=== PATIENT | female | born 1975 | race Hispanic/Latino ===

== ENCOUNTER 2020-10-15 16:53 | Emergency (ER) | payer OTHER, SELFPAY ==
--- NOTE | ~2020-10-15 | XR_ITS ---
EXAMINATION: XR chest 2V 10/15/2020 18:01 INDICATION: Cough PROCEDURE: 2 view chest COMPARISON: 04/11/2019 FINDINGS: The lungs are clear. The cardiomediastinal silhouette is within normal limits. There are no pleural effusions. There is no pneumothorax suspected. IMPRESSION: 1: NO ACUTE CARDIOPULMONARY DISEASE. Reviewed, dictated and finalized at location A. [employer]
--- NOTE | 2020-10-15 17:15 | ED.GENADULT ---
HPI - General Adult General Chief complaint: Upper Respiratory Infection Stated complaint: Cold Time Seen by Provider: 10/15/20 17:15 Source: patient, family (spouse, patient request for him to translate) and RN notes reviewed Mode of arrival: ambulatory Limitations: no limitations History of Present Illness HPI narrative: 44-year-old female presents with spouse (Dariusz), both complains of upper respiratory infection symptoms, fever, sore throat, cough, intermittent dyspnea and headaches (not the worst of her life) for 1 day. Hannah's spouse reports Hannah had trouble catching her breath while trying to sleep last night, URI symptoms continue to increase throughout the day. Tylenol, NyQuil, hot tea, Benadryl, humidifier without relief. Reported sick exposure from live in family member, NEGATIVE COVID-19 today. Dry cough with intermittent productive green phlegm. No chest congestion. Rhinorrhea and nasal congestion. Exacerbating factors consist of laying down. Fever, highest 100.1 Fahrenheit, temporal without chills and sweats. No nausea, vomiting, and abdominal pain. Tolerating p.o. intake well. Denies chest pain, coughing up blood, jaw pain, dental pain, facial pain, foreign body sensation, and rash. LMP 09/30/20. Remains active. The spouse reports they have not been diagnosed with COVID-19. The spouse reports they is not waiting for the results of a COVID-19 lab test. The spouse reports they do not have weakness, myalgia, or fatigue. The spouse reports they do not have a worsening cough. Denies chest pain. The spouse reports they do not have any loss of smell or taste or diarrhea. Denies recent traveling. Denies concerns for COVID-19 or exposures been home with limited outdoor exposure except for essential household needs, work, and return home. At this time, patient is not suspected of having COVID-19. Some parts of this dictation were generated by voice recognition software and may contain typographical and/or grammatical inaccuracies. Related Data Home Medications Medication Instructions Recorded Confirmed nortriptyline 10/15/20 Allergies Allergy/AdvReac Type Severity Reaction Status Date / Time No Known Allergies Allergy Unknown Unknown Verified 04/11/19 12:29 Review of Systems Review of Systems: Narrative: CONSTITUTIONAL: Complains of low-grade fever. Denies chills, sweats. EYES: Denies visual changes, redness, discharge. ENT: Complains of rhinorrhea, congestion, sore throat. Denies otalgia. CARDIOVASCULAR: Denies chest pain, palpitations, edema. RESPIRATORY: Denies wheezing. Complains of intermittent dyspnea, cough with intermittent productive green phlegm. GASTROINTESTINAL: Denies abdominal pain, nausea, vomiting, diarrhea. GENITOURINARY: Denies dysuria, hematuria, abnormal discharge. SKIN: Denies rash or itching. MUSCULOSKELETAL: Denies acute back pain, joint pain, myalgia. NEUROLOGIC: Denies numbness or focal weakness. PSYCHIATRIC: Denies anxiety or depression. Complains of intermittent BENNETT. All systems reviewed & are unremarkable except as noted in HPI and below. [facility] Past Medical History Medical History (Updated 10/15/20 @ 19:34 by LEIDY Chavez) Depression Surgical History Surgical History (Updated 10/15/20 @ 18:01 by LEIDY Chavez) No significant past surgical history Family History Family History (Updated 10/15/20 @ 18:02 by LEIDY Chavez) Father Alive and well Mother Diabetes mellitus Social History Social History (Updated 10/15/20 @ 18:02 by LEIDY Chavez) Smoking status: Never smoker Tobacco type: cigarettes Second hand tobacco smoke exposure: No Alcohol intake: never Substance use: never Substance use type: does not use Living arrangements: with family Occupation/Education: occupation Gender identity (if verbalized by the patient): Female Sexual Orientation (if Verbalized by the Patient): Straight or Heter
[2020-10-15 17:20] VITALS: BP 132/91; PULSE 112; RESP 18; TEMP 37.7; O2SAT 100
== END 2020-10-15 18:23 | disposition home or self-care (01) ==
PROVIDERS: Emergency Provider Nurse Practitioner Family; PCP Registered Nurse
DX: J06.9 Acute upper respiratory infection, unspecified (principal); J40 Bronchitis, not specified as acute or chronic; Z20.822 Contact with and (suspected) exposure to COVID-19; F32.9 Major depressive disorder, single episode, unspecified
CPT/HCPCS: 71046; 87081; 87426; 87804; 87880; 99213; C9803; G0463

== ENCOUNTER 2022-04-26 15:20 | Emergency (ER) | payer OTHER, SELFPAY ==
[2022-04-26 15:25] VITALS: BP 130/87; PULSE 82; RESP 16; TEMP 36.9; O2SAT 100
--- NOTE | 2022-04-26 15:50 | ED.URI ---
HPI - URI/Sore Throat General Chief Complaint: Upper Respiratory Infection Stated Complaint: sore throat Time Seen by Provider: 04/26/22 15:51 History of Present Illness HPI Narrative: 46 y/o female presented for c/o sore throat for about 5 days. Denies associated sinus pressure or congestion, headache, fever, or nausea. Endorses pain is worse when sleeping, feels like throat is closing. Also pain with swallowing food, states it feels like 'balls.' Started Zyrtec 2 days ago. States one year ago she had similar symptoms and was given inhaler which helped. Related Data Home Medications Medication Instructions Recorded Confirmed cetirizine 10 mg tablet 10 mg PO DAILY 04/26/22 04/26/22 nortriptyline 10 mg capsule 10 mg PO DAILY 04/26/22 04/26/22 Allergies Allergy/AdvReac Type Severity Reaction Status Date / Time No Known Allergies Allergy Unknown Unknown Verified 04/26/22 15:23 Review of Systems Review of Systems: CONSTITUTIONAL: Denies body aches, fever, chills, or sweats. EYES: Denies visual changes, redness, or discharge. ENT: Denies rhinorrhea, congestion, or otalgia. CARDIOVASCULAR: Denies chest pain, palpitations, or edema. RESPIRATORY: Denies dyspnea. GASTROINTESTINAL: Denies abdominal pain, nausea, vomiting, or diarrhea. SKIN: Denies rash, itching, or wounds. MUSCULOSKELETAL: Denies back pain, joint pain, or myalgia. NEUROLOGIC: Denies headache PMFSH Past Medical History Medical History Depression Surgical History Surgical History No significant past surgical history Family History Family History Father Alive and well Mother Diabetes mellitus Social History Social History Smoking status: Never smoker Tobacco type: cigarettes Second hand tobacco smoke exposure: No Alcohol intake: never Substance use: never Substance use type: does not use Gender identity (if verbalized by the patient): Female Sexual Orientation (if Verbalized by the Patient): Straight or Heterosexual Exam Narrative: GENERAL: well-appearing EYES: conjunctivae clear ENT: Mucous membranes moist. TM pearly cobian with normal light reflex bilaterally; no tragal tenderness. Oropharynx erythematous without lesions. No drooling, no hoarseness, no trismus, uvula midline. No tripod positioning, hot potato voice, or soft palate swelling. NECK: Supple. No lymphadenopathy CHEST: Clear to auscultation, breath sounds equal. ABD: mild epigastric TTP, soft, flat BS+ HEART: Regular rate and rhythm. No murmur heard. SKIN: Warm, dry, no rash. NEURO: Alert and oriented x3. Course Course Emergency Course: Patient is aware of diagnosis, understands and agrees to treatment plan. Anticipatory guidance given. Patient agrees to follow-up as directed and is aware of reasons to seek care at the emergency department. Portions of this record may have been created with voice recognition software Level of Care: Express Care Visit Vital Signs Vital signs: Vital Signs Temperature 98.4 F 04/26/22 15:25 Pulse Rate 82 04/26/22 15:25 Respiratory Rate 16 04/26/22 15:25 Blood Pressure 130/87 04/26/22 15:25 Pulse Oximetry 100 04/26/22 15:25 Temperature 98.4 F 04/26/22 15:25 Pulse Rate 82 04/26/22 15:25 Respiratory Rate 16 04/26/22 15:25 Blood Pressure 130/87 04/26/22 15:25 Pulse Oximetry 100 04/26/22 15:25 MDM - URI/Sore Throat MDM Narrative Medical decision making narrative: covid negative, reviewed with pt. Will send strep culture. Advised supportive measures, Rx PPI, and signs/symptoms to go to the ER. Pt is appropriate for outpt treatment and f/u. Differential Diagnosis Differential diagnosis: Likely sinusitis, viral infection, pharyngitis and other (gerd)
== END 2022-04-26 16:45 | disposition home or self-care (01) ==
PROVIDERS: Emergency Provider Nurse Practitioner Family; PCP Physician Assistant
DX: J02.9 Acute pharyngitis, unspecified (principal); Z20.822 Contact with and (suspected) exposure to COVID-19; F32.A Depression, unspecified
CPT/HCPCS: 87081; 87426; 99213; C9803; G0463

== ENCOUNTER 2022-11-22 14:02 | Emergency (ER) | payer OTHER, SELFPAY ==
--- NOTE | ~2022-11-22 | CT_ITS ---
EXAMINATION: CT brain wo con DATE: 11/22/2022 14:35 INDICATION: Head injury. TECHNIQUE: Computed tomography (CT) of the head was performed without intravenous contrast. The mA wa s adjusted according to patient size. Iterative reconstruction technique was employed. The dose-lengt h product was 605.33 mGy-cm. COMPARISON: Head CT 04/11/2019 FINDINGS: There is no intracranial hemorrhage, acute infarction, or abnormal intracranial mass lesion . The ventricles are normal in size. The orbits are normal. There is mild mucosal thickening in the p aranasal sinuses. The mastoid air cells are normal. IMPRESSION: 1. Normal brain. Reviewed, dictated and finalized at location A. IMPRESSION: 1. Normal brain.
--- NOTE | ~2022-11-22 | XR_ITS ---
EXAMINATION: XR hand LT min 3V DATE: 11/22/2022 14:40 INDICATION: Pain to the left first metacarpal and digit post fall TECHNIQUE: Posteroanterior, oblique and lateral views of the left hand were obtained. COMPARISON: None. FINDINGS: Alignment is normal. No fracture. Joint spaces are normal. Soft tissues are unremarkable. IMPRESSION: 1. Negative left hand radiographs. Reviewed, dictated and finalized at location L.
[2022-11-22 14:10] VITALS: BP 129/80; PULSE 78; RESP 16; TEMP 36.4; O2SAT 100
--- NOTE | 2022-11-22 14:30 | ED.HEATRA ---
HPI - Head Injury General Chief complaint: Head Injury Stated complaint: fall, head injury Time Seen by Provider: 11/22/22 14:23 Source: patient Mode of arrival: ambulatory Limitations: no limitations History of Present Illness HPI Narrative: This is a 47-year-old female that presents to the emergency department after a head injury today. 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 Reports falling backwards and hitting her head. Does report brief loss of consciousness. Reports since she has had a headache and some dizziness with position changes. Also reports an injury to her left hand. Denies vision changes, vomiting, numbness, or weakness. Related Data Home Medications Medication Instructions Recorded Confirmed nortriptyline 10 mg capsule 10 mg PO DAILY 04/26/22 04/26/22 Allergies Allergy/AdvReac Type Severity Reaction Status Date / Time No Known Allergies Allergy Unknown Unknown Verified 04/26/22 15:23 Review of Systems Review of Systems: CONSTITUTIONAL: Denies fever EYES: Denies visual changes GASTROINTESTINAL: Denies vomiting MUSCULOSKELETAL: Reports joint pain, and myalgia. NEUROLOGIC: Reports headache. Denies numbness, or weakness. All systems reviewed & are unremarkable except as noted in HPI and below PMFSH Past Medical History Medical History Depression Surgical History Surgical History No significant past surgical history Family History Family History Father Alive and well Mother Diabetes mellitus Social History Social History Smoking status: Never smoker Tobacco type: cigarettes Second hand tobacco smoke exposure: No Alcohol intake: never Substance use: never Substance use type: does not use Living arrangements: with family Occupation/Education: occupation Gender identity (if verbalized by the patient): Female Sexual Orientation (if Verbalized by the Patient): Straight or Heterosexual Exam Narrative: GENERAL: Well-appearing, well-nourished, and in no acute distress. HEAD: Normocephalic, atraumatic. EYES: PERRLA and EOMI. ENT: Nares clear, no rhinorrhea or epistaxis. Mucous membranes moist. Oropharynx without tonsillar hypertrophy exudate or other lesions. Bilateral TMs pearly cobian non-bulging NECK: Supple. No adenopathy or masses. No midline cervical spine tenderness CHEST: Clear to auscultation. No respiratory distress. No wheezes rales or rhonchi HEART: Regular rate and rhythm. No murmur heard. Normal peripheral pulses. EXTREMITIES: Normal range of motion. No edema or obvious deformity. Strength equal in bilateral upper extremities (5/5) SKIN: Warm, dry, no rash. NEURO: No focal deficits. Alert and oriented x3. CN II-XII grossly intact. Normal gait PSYCH: Normal mood and affect Course Course Emergency Course: Patient updated on work-up and agrees with plan of care Vital Signs Vital signs: Vital Signs Temperature 97.6 F 11/22/22 14:10 Pulse Rate 78 11/22/22 14:10 Respiratory Rate 16 11/22/22 14:10 Blood Pressure 129/80 11/22/22 14:10 Pulse Oximetry 100 11/22/22 14:10 Oxygen Delivery Room Air 11/22/22 14:10 Temperature 97.6 F 11/22/22 14:10 Pulse Rate 78 11/22/22 14:10 Respiratory Rate 16 11/22/22 14:10 Blood Pressure 129/80 11/22/22 14:10 Pulse Oximetry 100 11/22/22 14:10 Oxygen Delivery Room Air 11/22/22 14:10 MDM - Head Injury MDM Narrative Medical decision making narrative: Patient presents to the emergency department after a fall today with head injury. Reports brief loss of consciousness. Patient is neurologically intact. Also reporting an injury to her left hand. CT scan of her brain is without acute findings. Left hand x-ray is negative. Patient was e
== END 2022-11-22 15:30 | disposition home or self-care (01) ==
PROVIDERS: Emergency Provider Physician Assistant; PCP Physician Assistant
DX: S09.90XA Unspecified injury of head, initial encounter (principal); S60.222A Contusion of left hand, initial encounter; F32.A Depression, unspecified; W03.XXXA Other fall on same level due to collision with another person, initial encounter
CPT/HCPCS: 70450; 73130; 99284

== ENCOUNTER 2023-03-08 11:18 | Emergency (ER) | payer OTHER, SELFPAY ==
--- NOTE | ~2023-03-08 | XR_ITS ---
EXAMINATION: XR lumbar spine 2-3V DATE: 03/08/2023 12:50 INDICATION: Low back pain TECHNIQUE: Anteroposterior and lateral views of the lumbar spine, and cone-down lateral view of the l umbosacral junction were obtained. COMPARISON: 07/12/2010 FINDINGS: No fracture, dislocation, or subluxation. The vertebral body heights, alignment, and interv ertebral disc spaces are normal. The paravertebral soft tissues are unremarkable. There is a moderate volume of colonic stool. IMPRESSION: 1. No acute osseous abnormality. Reviewed, dictated and finalized at location B.
[2023-03-08 11:42] VITALS: BP 143/83; PULSE 91; RESP 16; TEMP 37.2; O2SAT 100
--- NOTE | 2023-03-08 12:01 | ED.BACK ---
HPI - Back Pain/Injury General Chief Complaint: Back Pain/Injury Stated Complaint: back pain Time Seen by Provider: 03/08/23 12:01 Source: patient, RN notes reviewed and old records reviewed Mode of arrival: ambulatory Limitations: no limitations History of Present Illness HPI Narrative: 47-year-old female presents to the [facility] with complaints of low back pain for 3 weeks. Patient states that she was bending over painting her nails when she developed a sharp pain in her lower lumbar area. Denies any numbness or tingling in extremities. Denies shooting pain down her legs. Denies loss retention of bowel or bladder. Last bowel movement was this morning. Denies urinary symptoms States that she is started her period. In currently on her period, However is unsure of . Onset (ago): week(s) (3) Related Data Home Medications Medication Instructions Recorded Confirmed nortriptyline 10 mg capsule 10 mg PO DAILY 04/26/22 04/26/22 Allergies Allergy/AdvReac Type Severity Reaction Status Date / Time No Known Allergies Allergy Unknown Unknown Verified 03/08/23 11:42 Review of Systems Review of Systems: All systems reviewed & are unremarkable except as noted in HPI and below Constitutional: Constitutional: Reports no additional constitutional complaints Eyes: Eyes: Reports no additional eye complaints ENT: Reports system reviewed and no additional complaints, except as documented Cardiovascular: Cardiovascular: Reports no additional cardiovascular complaints, Denies chest pain and Denies dyspnea Respiratory: Respiratory: Reports no additional respiratory complaints, Denies chest congestion, Denies cough and Denies dyspnea Gastrointestinal: Gastrointestinal: Reports no additional gastrointestinal complaints, Denies abdominal pain, Denies nausea and Denies vomiting Musculoskeletal: Musculoskeletal: Reports as per HPI and Reports back pain (lower lumbar) Integumentary/Breasts: Skin/Breast: Reports system reviewed and no additional complaints, except as docu Neurologic: Reports system reviewed and no additional complaints, except as documented Psychiatric: Psychiatric: Reports no additional psychiatric complaints Allergic/Immunologic: Allergic/Immunologic: Reports no additional allergic/immunologic complaints PMFSH Past Medical History Medical History Depression Surgical History Surgical History No significant past surgical history Family History Family History Father Alive and well Mother Diabetes mellitus Social History Social History Smoking status: Never smoker Tobacco type: cigarettes Second hand tobacco smoke exposure: No Alcohol intake: never Substance use: never Substance use type: does not use Living arrangements: with family Occupation/Education: occupation Gender identity (if verbalized by the patient): Female Sexual Orientation (if Verbalized by the Patient): Straight or Heterosexual Comments At the time of my signature, I reviewed and agree with the nursing past medical, surgical, social, and family history. There is no relevant family history pertinent to the patient complaint. Exam Const: General: cooperative, healthy appearing, comfortable, no acute distress, well developed, alert and well nourished Nutritional Appearance: well nourished Orientation/consciousness: patient oriented x3 Limitations: no limitations HENMT: Head: normal to inspection Ears: hearing grossly normal bilaterally and external ears normal Face/Nose/Sinus: Normal external nose present, Normal nares present, Normal nasal mucous membranes and turbinates present and normal facial exam Face and sinus: normal facial exam Eyes: General: appearance normal, both eyes and all re
== END 2023-03-08 13:14 | disposition home or self-care (01) ==
PROVIDERS: Emergency Provider Nurse Practitioner; PCP Physician Assistant
DX: S39.012A Strain of muscle, fascia and tendon of lower back, initial encounter (principal); X50.0XXA Overexertion from strenuous movement or load, initial encounter
CPT/HCPCS: 72100; 81025; 99213; G0463

== ENCOUNTER 2023-11-04 08:19 | Outpatient (CLI) | payer OTHER, SELFPAY ==
--- NOTE | 2023-11-04 08:28 | EST_ITS ---
Patient Info Name: Hannah Lyons Age: 48 years : 1975 Gender: Female Ht: 62 in Wt: 117 lbs BSA: 1.53 m2 HR: 149 bpm BP: 156 / 81 mmHg Technical Quality: Good Exam Date: 11/04/2023 9:02 AM Exam Location: Echo Lab Patient Status: Outpatient Admit Date: 11/04/2023 Staff Ordering Physician: Lakhwinder Blank DO Scalping Machine Operator: Lizbeth Almeida RDCS Attending Provider: DR. BLANK Referring Physician: Gabriel CAMARENA; Exercise Technologist: Shanika Snow RDCS Exercise Physician: Lakhwinder Blank DO Exam Type: CA stress echo Study Info Indications R07.9 - Chest pain, unspecified Treadmill exercise stress echocardiogram is performed. Summary 1. 1. Negative Uli exercise stress test for ischemic ST changes by ECG criteria. 2. 2. Good functional capacity, achieving 10 METs of workload. 3. 3. Appropriate HR response to exercise. 4. 4. Appropriate HR recovery at 1 minute post exercise. 5. 5. Negative stress echocardiogram for ischemia by wall motion analysis. 6. 6. Patient informed of the above results. Stress Echo Findings Left Ventricle Appropriate increase in LV endocardial thickening with systole. Appropriate augmentation of contractility with systole. No wall motion abnormality. Left Ventricle Normal LV systolic function, no wall motion abnormality. Protocol: Uli Stress ECG Details Stage: REST Duration (min): 3 min : 14 sec Speed (mph): 0.0 Grade (%): 0 HR (bpm): 66 SBP (mmHg): 136 DBP (mmHg): 83 METS: --- Stage: REST Duration (min): 23 min : 4 sec Speed (mph): 0.0 Grade (%): 0 HR (bpm): 80 SBP (mmHg): 136 DBP (mmHg): 83 METS: --- Stage: STAGE 1 Duration (min): 1 min : 0 sec Speed (mph): 1.7 Grade (%): 10 HR (bpm): 78 SBP (mmHg): 136 DBP (mmHg): 83 METS: --- Stage: STAGE 1 Duration (min): 2 min : 0 sec Speed (mph): 1.7 Grade (%): 10 HR (bpm): 82 SBP (mmHg): 136 DBP (mmHg): 83 METS: --- Stage: STAGE 1 Duration (min): 3 min : 0 sec Speed (mph): 1.7 Grade (%): 10 HR (bpm): 97 SBP (mmHg): 138 DBP (mmHg): 78 METS: --- Stage: STAGE 2 Duration (min): 1 min : 0 sec Speed (mph): 2.5 Grade (%): 12 HR (bpm): 109 SBP (mmHg): 138 DBP (mmHg): 78 METS: --- Stage: STAGE 2 Duration (min): 2 min : 0 sec Speed (mph): 2.5 Grade (%): 12 HR (bpm): 115 SBP (mmHg): 157 DBP (mmHg): 80 METS: --- Stage: STAGE 2 Duration (min): 3 min : 0 sec Speed (mph): 2.5 Grade (%): 12 HR (bpm): 120 SBP (mmHg): 157 DBP (mmHg): 80 METS: --- Stage: STAGE 3 Duration (min): 1 min : 0 sec Speed (mph): 3.4 Grade (%): 14 HR (bpm): 136 SBP (mmHg): 156 DBP (mmHg): 81 METS: --- Stage: STAGE 3 Duration (min): 2 min : 0 sec Speed (mph): 3.4 Grade (%): 14 HR (bpm): 147 SBP (mmHg): 156 DBP (mmHg): 81 METS: --- Stage: STAGE 3 Duration (min): 3 min : 0 sec Speed (mph): 3.4 Grade (%): 14 HR (bpm): 145 SBP (mmHg): 158 DBP (mmHg): 82 METS: ---
== END 2023-11-04 08:20 | disposition home or self-care (01) ==
PROVIDERS: PCP Physician Assistant; Visit Provider Internal Medicine Cardiovascular Disease
DX: R07.9 Chest pain, unspecified (principal)
CPT/HCPCS: 93351

== ENCOUNTER 2023-12-30 12:31 | Outpatient (CLI) | payer OTHER, SELFPAY ==
--- NOTE | 2023-12-30 12:48 | ECG_ITS ---
SEE SCANNED COPY FOR CONFIRMED REPORT MTDD
== END 2023-12-30 12:32 | disposition home or self-care (01) ==
LOC: ANHCARD 12:33
PROVIDERS: PCP Physician Assistant; Visit Provider Physician Assistant
DX: R42 Dizziness and giddiness (principal)
CPT/HCPCS: 93005

== ENCOUNTER 2024-04-08 08:48 | Outpatient (CLI) | payer OTHER, SELFPAY ==
[2024-04-08 09:44] LABS: Alanine Aminotransferase 19 U/L (6-35); Albumin Level 4.7 g/dL (3.5-5.1); Alkaline Phosphatase 66 U/L (38-126); Anion Gap 12 mmol/L (4-12); Aspartate Amino Transferase 30 U/L (14-36); Bilirubin,Total 0.6 mg/dL (0.2-1.3); Blood Urea Nitrogen 15 mg/dL (7-17); Calcium 9.6 mg/dL (8.4-10.2); Carbon Dioxide 23 mmol/L (22-30); Chloride 104 mmol/L (98-107); Cholesterol 220 mg/dL (0-200); Estimated Glomerular Filt Rate > 60; Glucose 98 mg/dL (65-110); HDL Direct 54 mg/dL; Potassium 4.9 mmol/L (3.4-5.0); Sodium 139 mmol/L (137-145); Triglycerides 129 mg/dL (<150)
[2024-04-08 09:55] LABS: LDL Cholesterol Direct 119 mg/dL
[2024-04-08 10:04] LABS: Hemoglobin A1C 5.8 % (<5.7)
== END 2024-04-08 08:49 | disposition home or self-care (01) ==
PROVIDERS: PCP Physician Assistant; Visit Provider Internal Medicine Cardiovascular Disease
DX: E78.5 Hyperlipidemia, unspecified (principal); E11.9 Type 2 diabetes mellitus without complications
CPT/HCPCS: 36415; 80053; 80061; 83036

== ENCOUNTER 2024-08-24 17:03 | Emergency (ER) | payer OTHER, SELFPAY ==
--- NOTE | ~2024-08-24 | US_ITS ---
EXAMINATION: US right upper quadrant DATE: 08/24/2024 20:58 INDICATION: Abdominal pain. TECHNIQUE: Multiple grayscale and Doppler ultrasound images of the abdomen were obtained. COMPARISON: None FINDINGS: The visualized portions of the head and body of the pancreas are normal. The liver is mikaela l without focal lesion. There is normal flow in main portal vein. The gallbladder is contracted and c ontains a gallstone. No sonographic Olguin's sign. The common duct is normal and measures 1 mm. IMPRESSION: 1. Cholelithiasis. No evidence of acute cholecystitis. Reviewed, dictated and finalized at location A. TEGIC SOURCING MANAGER
--- NOTE | ~2024-08-24 | XR_ITS ---
EXAMINATION: XR abdomen/kub 1V DATE: 08/24/2024 21:06 INDICATION: Constipation. TECHNIQUE: A supine view of the abdomen was obtained. COMPARISON: None. FINDINGS: There are no dilated loops of bowel. There is a moderate volume of stool in the colon. IMPRESSION: 1. Nonobstructive bowel gas pattern. Reviewed, dictated and finalized at location A. STITCH TUNNEL ELASTIC OPERATOR
[2024-08-24 17:46] VITALS: BP 147/85; PULSE 105; RESP 18; TEMP 37.1; O2SAT 100
--- NOTE | 2024-08-24 17:50 | ED_ITS ---
HPI - Abdominal Pain General Chief Complaint: Abdominal Pain <James Ro APRN - Last Filed: 08/24/24 17:50> Stated Complaint: RUQ ABD PAIN [id number] <James Ro APRN - Last Filed: 08/24/24 17:50> Time Seen by Provider: 08/24/24 18:48 <James Ro APRN - Last Filed: 08/24/24 17:50> 48-year-old female presents with right upper quadrant abdominal pain that started 2 weeks. Patient denies fevers or nausea vomiting. Patient has no history of abdominal issues GENERAL: Well-appearing, well-nourished, and in no acute distress. HEAD: Normocephalic, atraumatic. EYES: PERRLA and EOMI. ENT: Nares clear, no rhinorrhea or epistaxis. Mucous membranes moist. NECK: Supple. CHEST: Clear to auscultation. No respiratory distress. HEART: Regular rate and rhythm. No murmur heard. Normal peripheral pulses. ABDOMEN: Soft, tenderness to right upper quadrant. nondistended, normal active bowel sounds. EXTREMITIES: Normal range of motion. No edema. SKIN: Warm, dry, no rash. NEURO: No focal deficits. Alert and oriented x3. PSYCH: Normal mood and affect. <James Ro APRN - Last Filed: 08/24/24 17:50> History of Present Illness HPI narrative: Agree with HPI. Intermittent right upper quadrant abdominal pain better with applying pressure. Mild nausea. No fevers. Moderate constipation. < Eliud Fischer MD - Last Filed: 08/24/24 21:29> Related Data Home Medications: Home Medications ?Medication ?Instructions ?Recorded ?Confirmed ?Last Taken ?Type nortriptyline 10 mg capsule 10 mg PO DAILY 04/26/22 04/08/24 Unknown History <James Ro APRN - Last Filed: 08/24/24 17:50> Allergies/Adverse Reactions: Allergies Allergy/AdvReac Type Severity Reaction Status Date / Time No Known Allergies Allergy Unknown Unknown Verified 04/08/24 08:35 <James Ro APRN - Last Filed: 08/24/24 17:50> Review of Systems 2 Review of Systems: All systems reviewed & are unremarkable except as noted in HPI and below <Eliud Fischer MD - Last Filed: 08/24/24 21:29> Constitutional: Constitutional: Reports no additional constitutional complaints <Eliud Fischer MD - Last Filed: 08/24/24 21:29> ENT: Reports system reviewed and no additional complaints, except as documented <Eliud Fischer MD - Last Filed: 08/24/24 21:29> Cardiovascular: Cardiovascular: Reports no additional cardiovascular complaints <Eliud Fischer MD - Last Filed: 08/24/24 21:29> Gastrointestinal: Gastrointestinal: Reports abdominal pain, Reports constipation, Reports nausea and Denies vomiting <Eliud Fischer MD - Last Filed: 08/24/24 21:29> PMFSH Past Medical History Medical History: Medical History Depression <James Ro APRN - Last Filed: 08/24/24 17:50> Surgical History Surgical History: Surgical History No significant past surgical history <James Ro APRN - Last Filed: 08/24/24 17:50> Family History Family History: Family History Father Alive and well Mother Diabetes mellitus <James oR APRN - Last Filed: 08/24/24 17:50> Social History Social History: Social History Smoking status: Never smoker Tobacco type: cigarettes Second hand tobacco smoke exposure: No Alcohol intake: never Substance use: never Substance use type: does not use Do You Feel Safe in your Home?: Yes Lack of Transportation: No Lack of Food: Never True Current Housing: I Have Housing Concerned About Future Housing: No Difficulty Paying Gas/Electric Bills: Decline to Answer Difficulty Paying for Meds: Decline to Answer Currently Unemployed: No Education: Grade School Difficulty w/ Childcare or Family Care: No Living arrangements: with family Occupation/Education: occupation Gender identity (if verbalized by the patient): Female Sexual Orientation (if Verbalized by the Patient): Straight or Heterosexual <James Ro APRN - Last Filed: 08/24/24 17:50> Exam 2 Narrative: GENERAL: Well-appearing, well-nourished, and in no acute distress. HEAD: Normocephalic, atraumatic. ENT: Mucous membranes moist. CHEST: Clear to auscultation. No respiratory distress. HEART: Regular rate and rhythm. Normal peripheral pulses. ABDOMEN: Soft, nontender, nondistended. EXTREMITIES: Normal range of motion. No edema. SKIN: Warm, dry, no rash. NEURO: Alert and oriented x3. PSYCH: Normal mood and affect. <Eliud Fischer MD - Last Filed: 08/24/24 21:29> Course Course Emergency Course: Patient resting comfortably. Informed of results as well as treatment plan. Discussed low-fat diet. Needs follow-up with General surgery. Pain control p.r.n. for home as well as stool softeners. <Eliud Fischer MD - Last Filed: 08/24/24 21:29> Vital Signs Vital signs: Vital Signs Temperature 98.8 F 08/24/24 17:46 Pulse Rate 105 H 08/24/24 17:46 Respiratory Rate 18 08/24/24 17:46 Blood Pressure 147/85 H 08/24/24 17:46 Pulse Oximetry 100 08/24/24 17:46 Oxygen Delivery Room Air 08/24/24 17:46 Temperature 98.8 F 08/24/24 17:46 Pulse Rate 105 H 08/24/24 17:46 Respiratory Rate 18 08/24/24 17:46 Blood Pressure 147/85 H 08/24/24 17:46 Pulse Oximetry 100 08/24/24 17:46 Oxygen Delivery Room Air 08/24/24 17:46 <James Ro APRN - Last Filed: 08/24/24 17:50> Vital Signs Temperature 98.8 F 08/24/24 17:46 Pulse Rate 105 H 08/24/24 17:46 Respiratory Rate 18 08/24/24 17:46 Blood Pressure 147/85 H 08/24/24 17:46 Pulse Oximetry 100 08/24/24 17:46 Oxygen Delivery Room Air 08/24/24 17:46 Temperature 98.8 F 08/24/24 17:46 Pulse Rate 105 H 08/24/24 17:46 Respiratory Rate 18 08/24/24 17:46 Blood Pressure 147/85 H 08/24/24 17:46 Pulse Oximetry 100 08/24/24 17:46 Oxygen Delivery Room Air 08/24/24 17:46 <Eliud Fischer MD - Last Filed: 08/24/24 21:29> MDM - Abdominal Pain Lab Data Result diagrams: 08/24/24 18:46 08/24/24 18:46 <James Ro APRN - Last Filed: 08/24/24 17:50> Labs: Lab Results 08/24/24 08/24/24 08/24/24 Range/Units 18:46 18:52 19:02 WBC 5.6 (4.5-10.0) K/mm3 RBC 3.97 L (4.2-5.4) M/mm3 Hgb 11.7 L (12.0-15.0) g/dL Hct 36.0 L (37.0-47.0) % MCV 90.7 (80-100) fl MCH 29.5 (26-34) pg MCHC 32.5 (32-36) g/dl RDW 13.8 (11.5-14.5) % Plt Count 207 (150-375) k/mm3 MPV 11.1 H (7.4-10.4) fl Immature Gran % (Auto) 0.2 (0-0.5) % Neut % (Auto) 54.4 (45.5-73.1) % Lymph % (Auto) 37.0 (18.3-44.2) % [place] % (Auto) 5.5 (2.6-8.5) % Eos % (Auto) 2.0 (0-4.4) % Baso % (Auto) 0.9 (0.2-1.2) % Lymph # (Auto) 2.07 (0.9-3.2) K/mm3 [place] # (Auto) 0.3 (0.1-0.6) K/mm3 Eos # (Auto) 0.1 (0-0.3) K/mm3 Baso # (Auto) 0.1 (0.0-0.1) K/mm3 Abs Immat Gran (auto) 0.01 (0.00-0.031) K/mm3 Absolute Neuts (auto) 3.1 (1.3-6.7) K/mm3 Absolute Nucleated RBC 0.000 (0.0-0.012) K/mm3 Nucleated RBC % 0.0 (0.0-0.2) % Sodium 140 (137-145) mmol/L Potassium 3.8 (3.4-5.0) mmol/L Chloride 109 H (98-107) mmol/L Carbon Dioxide 27 (22-30) mmol/L Anion Gap 4 (4-12) mmol/L BUN 17 (7-17) mg/dL Creatinine 0.70 (0.7-1.0) mg/dL Estim Creat Clear Calc 69 ml/min Estimated GFR > 60 (59 - ) Glucose 124 H (65-110) mg/dL Calcium 9.4 (8.4-10.2) mg/dL Total Bilirubin 0.3 (0.2-1.3) mg/dL AST 29 (14-36) U/L ALT 15 (6-35) U/L Alkaline Phosphatase 73 (38-126) U/L Total Protein 7.0 (6.3-8.2) g/dL Albumin 4.4 (3.5-5.1) g/dL Lipase 174 (23-300) U/L Urine Color Yellow (Yellow) Urine Appearance Clear (Clear) Urine pH 6.5 (5.0-9.0) Ur Specific [place] 1.009 (1.001-1.035) Urine Protein Negative (Negative) mg/dL Urine Glucose (UA) Negative (Negative) mg/dL Urine Ketones Negative (Negative) mg/dL Ur Blood (Man) Negative (Negative) Urine Nitrate Negative (Negative) Urine Bilirubin Negative (Negative) Urine Urobilinogen 0.2 (<2.0) mg/dL Leukocyte Esterase Rfl Negative (Negative) ELANA/UL POC Urine HCG, Qual Negative (Negative) <James Ro, LIBRARY HELPER - Last Filed: 08/24/24 17:50> Lab Results 08/24/24 08/24/24 08/24/24 Range/Units 18:46 18:52 19:02 WBC 5.6 (4.5-10.0) K/mm3 RBC 3.97 L (4.2-5.4) M/mm3 Hgb 11.7 L (12.0-15.0) g/dL Hct 36.0 L (37.0-47.0) % MCV 90.7 (80-100) fl MCH 29.5 (26-34) pg MCHC 32.5 (32-36) g/dl RDW 13.8 (11.5-14.5) % Plt Count 207 (150-375) k/mm3 MPV 11.1 H (7.4-10.4) fl Immature Gran % (Auto) 0.2 (0-0.5) % Neut % (Auto) 54.4 (45.5-73.1) % Lymph % (Auto) 37.0 (18.3-44.2) % [place] % (Auto) 5.5 (2.6-8.5) % Eos % (Auto) 2.0 (0-4.4) % Baso % (Auto) 0.9 (0.2-1.2) % Lymph # (Auto) 2.07 (0.9-3.2) K/mm3 [place] # (Auto) 0.3 (0.1-0.6) K/mm3 Eos # (Auto) 0.1 (0-0.3) K/mm3 Baso # (Auto) 0.1 (0.0-0.1) K/mm3 Abs Immat Gran (auto) 0.01 (0.00-0.031) K/mm3 Absolute Neuts (auto) 3.1 (1.3-6.7) K/mm3 Absolute Nucleated RBC 0.000 (0.0-0.012) K/mm3 Nucleated RBC % 0.0 (0.0-0.2) % Sodium 140 (137-145) mmol/L Potassium 3.8 (3.4-5.0) mmol/L Chloride 109 H (98-107) mmol/L Carbon Dioxide 27 (22-30) mmol/L Anion Gap 4 (4-12) mmol/L BUN 17 (7-17) mg/dL Creatinine 0.70 (0.7-1.0) mg/dL Estim Creat Clear Calc 69 ml/min Estimated GFR > 60 (59 - ) Glucose 124 H (65-110) mg/dL Calcium 9.4 (8.4-10.2) mg/dL Total Bilirubin 0.3 (0.2-1.3) mg/dL AST 29 (14-36) U/L ALT 15 (6-35) U/L Alkaline Phosphatase 73 (38-126) U/L Total Protein 7.0 (6.3-8.2) g/dL Albumin 4.4 (3.5-5.1) g/dL Lipase 174 (23-300) U/L Urine Color Yellow (Yellow) Urine Appearance Clear (Clear) Urine pH 6.5 (5.0-9.0) Ur Specific [place] 1.009 (1.001-1.035) Urine Protein Negative (Negative) mg/dL Urine Glucose (UA) Negative (Negative) mg/dL Urine Ketones Negative (Negative) mg/dL Ur Blood (Man) Negative (Negative) Urine Nitrate Negative (Negative) Urine Bilirubin Negative (Negative) Urine Urobilinogen 0.2 (<2.0) mg/dL Leukocyte Esterase Rfl Negative (Negative) ELANA/UL POC Urine HCG, Qual Negative (Negative) <Eliud Fischer MD - Last Filed: 08/24/24 21:29> Imaging Data Radiologist's impression: ITS Impressions Upper Quadrant Ultrasound 08/24/24 21:02 IMPRESSION: 1. Cholelithiasis. No evidence of acute cholecystitis. Abdomen X-Ray 08/24/24 21:09 IMPRESSION: 1. Nonobstructive bowel gas pattern. <James Ro APRN - Last Filed: 08/24/24 17:50> ITS Impressions Upper Quadrant Ultrasound 08/24/24 21:02 IMPRESSION: 1. Cholelithiasis. No evidence of acute cholecystitis. Abdomen X-Ray 08/24/24 21:09 IMPRESSION: 1. Nonobstructive bowel gas pattern. <Eliud Fischer MD - Last Filed: 08/24/24 21:29> Discharge Plan Discharge Clinical Impression: Cholelithiasis <James Ro APRN - Last Filed: 08/24/24 17:50> Patient Disposition: Home, Self-Care <James Ro APRN - Last Filed: 08/24/24 17:50> Condition: Stable <James Ro APRN - Last Filed: 08/24/24 17:50> Instructions: Antibiotic Form, Gallstones (ED) <James Ro APRN - Last Filed: 08/24/24 17:50> Additional Instructions: Return to the emergency department if you develop severe abdominal pain, severe nausea and vomiting to the point where you are unable to keep down fluids, if you develop chest pain or difficulty breathing, blood in your stool, dizziness or fainting, or if you develop any other new or concerning symptoms as these could be signs of more serious medical illness. Try to stay well hydrated. <James Ro APRN - Last Filed: 08/24/24 17:50> Patient Language: Japanese <James Ro APRN - Last Filed: 08/24/24 17:50> Prescriptions: New hydrocodone-acetaminophen 5-325 mg tablet 1 tablet PO Q6H PRN (Reason: pain) Qty: 10 0RF ondansetron 4 mg tablet,disintegrating 4 mg PO Q6H PRN (Reason: nausea and vomiting) Qty: 10 0RF docusate sodium [Colace] 100 mg capsule 100 mg PO BID Qty: 14 0RF No Action nortriptyline 10 mg capsule 10 mg PO DAILY ibuprofen 600 mg tablet 600 mg PO TID PRN (Reason: fever or pain) Qty: 30 0RF <James Ro APRN - Last Filed: 08/24/24 17:50> Follow-up/Referrals: Lilian Benito MD [Physician] - 1 Week Shayna,MALIA Wetzel [Primary Care Provider] - <James Ro APRN - Last Filed: 08/24/24 17:50>
[2024-08-24 18:56] LABS: Basophils Absolute Auto 0.1 K/mm3 (0.0-0.1); Basophils Percent Auto 0.9 % (0.2-1.2); Eosinophils Absolute Auto 0.1 K/mm3 (0-0.3); Hemoglobin 11.7 g/dL (12.0-15.0); Immature Granulocyte Absolute 0.01 K/mm3 (0.00-0.031); Immature Granulocyte Percent A 0.2 % (0-0.5); Lymphocytes Absolute Auto 2.07 K/mm3 (0.9-3.2); Mean Corpuscular HGB Conc 32.5 g/dl (32-36); Mean Corpuscular Hemoglobin 29.5 pg (26-34); Mean Corpuscular Volume 90.7 fl (80-100); Mean Platelet Volume 11.1 fl (7.4-10.4); Monocytes Absolute Auto 0.3 K/mm3 (0.1-0.6); Monocytes Percent Auto 5.5 % (2.6-8.5); Neutrophils Absolute Auto 3.1 K/mm3 (1.3-6.7); Neutrophils Percent Auto 54.4 % (45.5-73.1); Platelet Count Result 207 k/mm3 (150-375); Red Blood Count 3.97 M/mm3 (4.2-5.4); Red Cell Distribution Width 13.8 % (11.5-14.5); White Blood Count 5.6 K/mm3 (4.5-10.0)
[2024-08-24 19:05] LABS: BEDSIDEPREGUCG Negative (Negative)
[2024-08-24 19:06] LABS: Alanine Aminotransferase 15 U/L (6-35); Albumin Level 4.4 g/dL (3.5-5.1); Alkaline Phosphatase 73 U/L (38-126); Anion Gap 4 mmol/L (4-12); Aspartate Amino Transferase 29 U/L (14-36); Bilirubin,Total 0.3 mg/dL (0.2-1.3); Blood Urea Nitrogen 17 mg/dL (7-17); Calcium 9.4 mg/dL (8.4-10.2); Carbon Dioxide 27 mmol/L (22-30); Chloride 109 mmol/L (98-107); Estimated CRCL calculation 69 ml/min; Estimated Glomerular Filt Rate > 60; Glucose 124 mg/dL (65-110); Lipase 174 U/L (23-300); Potassium 3.8 mmol/L (3.4-5.0); Sodium 140 mmol/L (137-145)
[2024-08-24 19:30] VITALS: BP 150/77; PULSE 73; RESP 18; O2SAT 100
[2024-08-24 19:44] LABS: Add Urine Microscopic? NO; Appearance Urine Clear (Clear); Bilirubin Urine Negative (Negative); Blood Urine Negative (Negative); Color Urine Yellow (Yellow); Glucose Urine UA Negative (Negative); Ketones Urine Negative (Negative); Leukocyte Esterase Ur Negative LEU/UL (Negative); Nitrate Urine Negative (Negative); Protein Urine Negative (Negative); Specific Grav Ur 1.009 (1.001-1.035); Urobilinogen Urine 0.2 mg/dL (<2.0); pH Urine 6.5 (5.0-9.0)
[2024-08-24 21:31] VITALS: BP 140/80; PULSE 73; RESP 18; O2SAT 100
== END 2024-08-24 21:39 | disposition home or self-care (01) ==
PROVIDERS: Nurse Practitioner Family; Emergency Provider Emergency Medicine; PCP Physician Assistant
DX: K80.20 Calculus of gallbladder without cholecystitis without obstruction (principal); F32.A Depression, unspecified
CPT/HCPCS: 36415; 74018; 76705; 80053; 81003; 81025; 83690; 85025; 99284

== ENCOUNTER 2024-08-30 22:25 | Observation (INO) | payer OTHER, SELFPAY ==
--- NOTE | ~2024-08-30 | CT_ITS ---
EXAMINATION: CT abdomen pelvis w con DATE: 08/31/2024 02:47 INDICATION: Right upper quadrant abdominal pain. TECHNIQUE: Computed tomography (CT) of the abdomen and pelvis was performed with 100 mL Omnipaque 350 intravenous contrast. Automated exposure control and iterative reconstruction technique were employe d. The dose-length product was 186.33 mGy-cm. COMPARISON: None. FINDINGS: The visualized portions of lung bases demonstrate mild atelectasis. No pleural effusion. Th e heart size is normal. No pericardial effusion. The liver and spleen are normal. There is a gallston e in the gallbladder, which is normal in size. The pancreas, adrenal glands, and kidneys are normal. There are no dilated loops of bowel. The appendix is normal. There are no pathologically enlarged lym ph nodes. There are nabothian cysts in the cervix. There is no free intraperitoneal fluid. There is m ild lumbar spondylosis. IMPRESSION: 1. Cholelithiasis. No evidence of acute cholecystitis. Reviewed, dictated and finalized at location A. AURANT LINE COOK
[2024-08-30 22:26] VITALS: BP 149/77; PULSE 88; RESP 16; TEMP 36.3; O2SAT 100
[2024-08-31] VITALS (7 sets, daily range): BP systolic 132–149; BP diastolic 73–87; PULSE 70–103; RESP 14–20; TEMP 36.8–36.9; O2SAT 98–100; BMI 20.3
[2024-08-31] MEDS: SODIUM CHLORIDE 0.9% IV 1,000 ML 999 ML IV CONT ×2 (01:19→06:57)
[2024-08-31] MEDS: ONDANSETRON INJ 4 MG/2 ML VIAL IV PUSH ×5 (01:19→21:18)
[2024-08-31 01:26] LABS: Add Urine Microscopic? NO; Appearance Urine Clear (Clear); Basophils Absolute Auto 0.1 K/mm3 (0.0-0.1); Basophils Percent Auto 0.4 % (0.2-1.2); Bilirubin Urine Negative (Negative); Blood Urine Negative (Negative); Color Urine Yellow (Yellow); Eosinophils Absolute Auto 0.1 K/mm3 (0-0.3); Eosinophils Percent Auto 0.7 % (0-4.4); Glucose Urine UA Negative (Negative); Hematocrit 35.9 % (37.0-47.0); Hemoglobin 11.9 g/dL (12.0-15.0); Immature Granulocyte Absolute 0.04 K/mm3 (0.00-0.031); Immature Granulocyte Percent A 0.3 % (0-0.5); Ketones Urine Trace mg/dL (Negative); Leukocyte Esterase Ur Negative LEU/UL (Negative); Lymphocytes Absolute Auto 1.31 K/mm3 (0.9-3.2); Mean Corpuscular HGB Conc 33.1 g/dl (32-36); Mean Corpuscular Hemoglobin 29.8 pg (26-34); Mean Corpuscular Volume 89.8 fl (80-100); Monocytes Absolute Auto 0.4 K/mm3 (0.1-0.6); Monocytes Percent Auto 3.5 % (2.6-8.5); Neutrophils Percent Auto 84.1 % (45.5-73.1); Nitrate Urine Negative (Negative); Platelet Count Result 204 k/mm3 (150-375); Protein Urine Negative (Negative); Red Cell Distribution Width 13.6 % (11.5-14.5); Specific Grav Ur 1.016 (1.001-1.035); Urobilinogen Urine 0.2 mg/dL (<2.0); White Blood Count 11.9 K/mm3 (4.5-10.0)
[2024-08-31 01:40] LABS: Alanine Aminotransferase 15 U/L (6-35); Albumin Level 4.4 g/dL (3.5-5.1); Alkaline Phosphatase 77 U/L (38-126); Anion Gap 6 mmol/L (4-12); Aspartate Amino Transferase 29 U/L (14-36); Bilirubin,Total 0.4 mg/dL (0.2-1.3); Blood Urea Nitrogen 16 mg/dL (7-17); Calcium 9.2 mg/dL (8.4-10.2); Carbon Dioxide 24 mmol/L (22-30); Chloride 105 mmol/L (98-107); Estimated CRCL calculation 68 ml/min; Estimated Glomerular Filt Rate > 60; Glucose 125 mg/dL (65-110); Lipase 166 U/L (23-300); Magnesium 2.1 mg/dL (1.6-2.3); Potassium 3.8 mmol/L (3.4-5.0); Sodium 135 mmol/L (137-145)
[2024-08-31 02:23] LABS: SPREG INTERNAL CONTROL Positive; Serum Qual hCG Negative
[2024-08-31] MEDS: FAMOTIDINE 20 MG/2 ML VIAL IV PUSH (02:24)
[2024-08-31] MEDS: MORPHINE SULFATE (*CRX) 4 MG/ML INJ IV PUSH (02:24)
--- NOTE | 2024-08-31 03:50 | ED_ITS ---
HPI - Abdominal Pain General Chief Complaint: Abdominal Pain Stated Complaint: galbladder stone Time Seen by Provider: 08/30/24 23:32 History of Present Illness HPI narrative: Patient is a 48-year-old female who presents to the emergency department this evening complaining of right upper quadrant abdominal pain. Patient states that she was seen our facility 1 week ago and had an ultrasound of her gallbladder performed and was told that she does have gallstones likely the cause of her symptoms. Patient states that she was sent home with a script for [place] which she has been taking as needed for pain and she said that it was somewhat helping with her pain but this evening despite taking [place] she was in severe pain, rating at 10/10. Patient was provided with a general surgeon follow-up regarding her cholelithiasis and she said that she has an upcoming appointment this 1 is they can see her was on the of this month. Admits to nausea and states that the pain radiates to her back. Denies any fevers or chills at home. Denies any chest pain or shortness of breath. No additional symptoms or concerns at this time. Related Data Home Medications ?Medication ?Instructions ?Recorded ?Confirmed ?Last Taken ?Type nortriptyline 10 mg capsule 10 mg PO DAILY 04/26/22 04/08/24 Unknown History Allergies Allergy/AdvReac Type Severity Reaction Status Date / Time No Known Allergies Allergy Unknown Unknown Verified 04/08/24 08:35 Review of Systems 2 Review of Systems: All systems are reviewed and are negative unless stated otherwise in the HPI. [facility] Past Medical History Medical History Depression Surgical History Surgical History No significant past surgical history Family History Family History Father Alive and well Mother Diabetes mellitus Social History Social History Smoking status: Never smoker Tobacco type: cigarettes Second hand tobacco smoke exposure: No Alcohol intake: never Substance use: never Substance use type: does not use Do You Feel Safe in your Home?: Yes Lack of Transportation: No Lack of Food: Never True Current Housing: I Have Housing Concerned About Future Housing: No Difficulty Paying Gas/Electric Bills: Decline to Answer Difficulty Paying for Meds: Decline to Answer Currently Unemployed: No Education: Grade School Difficulty w/ Childcare or Family Care: No Living arrangements: with family Occupation/Education: occupation Gender identity (if verbalized by the patient): Female Sexual Orientation (if Verbalized by the Patient): Straight or Heterosexual Exam 2 Narrative: General: Alert, awake, afebrile, appears uncomfortable secondary to pain. HEENT: PERRL, no rhinorrhea, no post nasal drip, oropharynx clear. Neck: Trachea midline, no JVD, no lymphadenopathy. Cardiovascular: Regular rate and rhythm, no murmurs, rubs or gallops, no peripheral edema. Respiratory: Clear to auscultation bilaterally, no tachypnea, no wheezing, no rhonchi, no rubs, no respiratory distress. Abdomen: Soft, tenderness to palpation over the right upper quadrant, nondistended, no rebound, no guarding, no peritoneal signs. Musculoskeletal: No joint swelling or deformity, normal muscle tone. Skin: No rashes or petechia, no signs of infection. Psychiatric: Alert and oriented, normal behavior and judgment for situation. Neurological: Alert and oriented to person, place, and time. Follows all commands. No focal deficits, speech is clear and fluent. Course Vital Signs Vital signs: Vital Signs Temperature 97.4 F L 08/30/24 22:26 Pulse Rate 88 08/30/24 22:26 Respiratory Rate 16 08/30/24 22:26 Blood Pressure 149/77 H 08/30/24 22:26 Pulse Oximetry 100 08/30/24 22:26 Temperature 97.4 F L 08/30/24 22:26 Pulse Rate 88 08/30/24 22:26 Respiratory Rate 16 08/30/24 22:26 Blood Pressure 149/77 H 08/30/24 22:26 Pulse Oximetry 100 08/30/24 22:26 MDM - Abdominal Pain MDM Narrative Medical decision making narrative: The patient was evaluated by myself in the emergency department. History is obtained from patient who is an independent historian and physical exam was performed. External medical records were reviewed at this time. IV was established and pertinent tests were ordered. Patient was administered 1 L IV fluid bolus with normal saline, 4 mg of IV Zofran for nausea and 4 mg of IV morphine for pain. on repeat assessment, patient continues to feel nauseous and at this time she was administered 10 mg of IV Reglan and 25 mg of IV Benadryl. Patient was also administered 20 mg of IV Pepcid. Laboratory results obtained revealing A leukocytosis of 11.9. Patient's blood work 1 week ago revealed a white blood cell count of 5.6, Otherwise remainder of the blood work unremarkable. Urinalysis revealed trace ketones otherwise unremarkable. Imaging studies obtained included CT abdomen pelvis with IV contrast which was independently interpreted by me revealing cholelithiasis, no evidence of cholecystitis, which is pending final radiology interpretation. Differential diagnosis considerations include cholecystitis, choledocholithiasis, biliary colic, pancreatitis, peptic ulcer disease, gastritis. Comorbidities impacting this visit include history of know gallstones. I have evaluated and discussed social determinants of health with the patient that could potentially impact subsequent diagnosis and treatment plans. On repeat assessment of the patient, reevaluation revealed that the patient is still very nauseous and uncomfortable. Patient symptoms have improved since she arrived to our emergency department. Repeat vital signs were all reviewed and noted to be stable. Differential diagnosis and treatment plan were discussed with the patient at bedside. Patient agrees with discussion and after shared medical decision making agrees with admission. All questions were answered to the patient's satisfaction. Case was discussed with the on-call hospitalist Dr. Worthington for pain management until she is able to tolerate PO intake at 0625 and she accepted admission. Case was also discussed with the on-call general surgeon Dr. Elena at 0630 and he agreed to evaluate the patient. Giving the lack of inflammatory / infectious findings and lack of cholecystitis, he did inform me that he cannot guarantee that he will be able to perform a cholecystectomy, this depends on his surgical schedule, which is what I had originally informed the patient. However, I did inform her that a try to run this by the general surgeon. Patient and both understand and are agreeable with this plan. Lab Data 08/31/24 01:17 08/31/24 01:17 Labs: Lab Results 08/31/24 Range/Units 01:17 WBC 11.9 H (4.5-10.0) K/mm3 RBC 4.00 L (4.2-5.4) M/mm3 Hgb 11.9 L (12.0-15.0) g/dL Hct 35.9 L (37.0-47.0) % MCV 89.8 (80-100) fl MCH 29.8 (26-34) pg MCHC 33.1 (32-36) g/dl RDW 13.6 (11.5-14.5) % Plt Count 204 (150-375) k/mm3 MPV 11.0 H (7.4-10.4) fl Immature Gran % (Auto) 0.3 (0-0.5) % Neut % (Auto) 84.1 H (45.5-73.1) % Lymph % (Auto) 11.0 L (18.3-44.2) % [place] % (Auto) 3.5 (2.6-8.5) % Eos % (Auto) 0.7 (0-4.4) % Baso % (Auto) 0.4 (0.2-1.2) % Lymph # (Auto) 1.31 (0.9-3.2) K/mm3 [place] # (Auto) 0.4 (0.1-0.6) K/mm3 Eos # (Auto) 0.1 (0-0.3) K/mm3 Baso # (Auto) 0.1 (0.0-0.1) K/mm3 Abs Immat Gran (auto) 0.04 H (0.00-0.031) K/mm3 Absolute Neuts (auto) 10.0 H (1.3-6.7) K/mm3 Absolute Nucleated RBC 0.000 (0.0-0.012) K/mm3 Nucleated RBC % 0.0 (0.0-0.2) % Sodium 135 L (137-145) mmol/L Potassium 3.8 (3.4-5.0) mmol/L Chloride 105 (98-107) mmol/L Carbon Dioxide 24 (22-30) mmol/L Anion Gap 6 (4-12) mmol/L BUN 16 (7-17) mg/dL Creatinine 0.70 (0.7-1.0) mg/dL Estim Creat Clear Calc 68 ml/min Estimated GFR > 60 (59 - ) Glucose 125 H (65-110) mg/dL Calcium 9.2 (8.4-10.2) mg/dL Magnesium 2.1 (1.6-2.3) mg/dL Total Bilirubin 0.4 (0.2-1.3) mg/dL Direct Bilirubin 0.0 (0-0.3) mg/dL AST 29 (14-36) U/L ALT 15 (6-35) U/L Alkaline Phosphatase 77 (38-126) U/L Total Protein 7.0 (6.3-8.2) g/dL Albumin 4.4 (3.5-5.1) g/dL Lipase 166 (23-300) U/L Serum HCG, Qual Negative Urine Color Yellow (Yellow) Urine Appearance Clear (Clear) Urine pH 5.0 (5.0-9.0) Ur Specific [place] 1.016 (1.001-1.035) Urine Protein Negative (Negative) mg/dL Urine Glucose (UA) Negative (Negative) mg/dL Urine Ketones Trace H (Negative) mg/dL Ur Blood (Man) Negative (Negative) Urine Nitrate Negative (Negative) Urine Bilirubin Negative (Negative) Urine Urobilinogen 0.2 (<2.0) mg/dL Leukocyte Esterase Rfl Negative (Negative) ELANA/UL Imaging Data Radiologist's impression: ITS Impressions Abdomen/Pelvis CT 08/31/24 06:20 IMPRESSION: 1. Cholelithiasis. No evidence of acute cholecystitis. Discharge Plan Discharge Clinical Impression: Biliary colic, Nausea & vomiting Patient Disposition: Still a Patient Condition: Stable Instructions: Antibiotic Form Patient Language: British Prescriptions: No Action nortriptyline 10 mg capsule 10 mg PO DAILY ibuprofen 600 mg tablet 600 mg PO TID PRN (Reason: fever or pain) Qty: 30 0RF hydrocodone-acetaminophen 5-325 mg tablet 1 tablet PO Q6H PRN (Reason: pain) Qty: 10 0RF ondansetron 4 mg tablet,disintegrating 4 mg PO Q6H PRN (Reason: nausea and vomiting) Qty: 10 0RF docusate sodium [Colace] 100 mg capsule 100 mg PO BID Qty: 14 0RF Follow-up/Referrals: Shayna,MALIA Wetzel [Primary Care Provider] - Time of Disposition: 06:39
--- NOTE | 2024-08-31 09:05 | ADMGEN ---
This patient, Hannah Lyons, was admitted to [facility] Surg Room 329-01. Patient/family oriented to hospital policies and general routines including ID bracelet, bed and alarms, visiting hours, pain management, procedures, bathroom and other care routines, personal items, smoking policy, room service/diet, and visiting hours. Information on how to activate the Rapid Response Team has been discussed. Patient/Family are encouraged to report perceived risks to care and to ask questions if they do not understand what they are told or what they should do. Tractor Expert Reece [id number]
[2024-08-31] MEDS: HYDROmorphone HCL INJ (*CRX) 1 MG/ML SYR 0.5 MG IV PUSH ×3 (09:30→21:18)
[2024-08-31] MEDS: SODIUM CHLORIDE 0.9% IV 1,000 ML 100 ML IV CONT (09:31)
--- NOTE | 2024-08-31 15:04 | PM.CNGS ---
Assessment and Plan Assessment and plan (1) Acute calculous cholecystitis: Code(s): K80.00 - Calculus of gallbladder with acute cholecystitis without obstruction Status: Acute Assessment and Plan: Patient has had progressive RUQ abdominal pain over the past month that has become constant. She has not been able to tolerate much of a diet over the past few days due to the pain. Labs were unremarkable other than mild leukocytosis. CT scan showed no inflammation of the gallbladder, but she has a fairly large gallstone that appears to be at the neck of the gallbladder. She continues to have constant RUQ pain that has not improved since admission. Her exam and presentation correlate with acute calculous cholecystitis. We discussed treatment options in detail, including nonoperative versus surgical management. The patient wishes to proceed with surgery. We discussed the details of a laparoscopic cholecystectomy under general anesthesia. Description of the procedure, risks, benefits, alternatives, and expected recovery were discussed with the patient in detail. We discussed the risks of bile leak and bile duct injury, liver/bowel injury, bleeding, and infection. Also discussed the possibility of having to convert to an open procedure if necessary. All questions were answered and we have added her onto the surgery schedule for tomorrow morning. Although she is on a full liquid diet, she is not taking in any oral intake this afternoon due to her symptoms. Continue maintenance IV fluids and I will make her NPO after midnight. Plan I have discussed the patient's case and plan of care with Dr. Wayne. Thank you for allowing us to see the patient in consultation and we will continue to follow along with you. The video phone representative used for our conversation was [employer] #[id number]. History of Present Illness Consult details Consult date: 08/31/24 Requesting physician: Maira Mayes MD Narrative: This is a 48-year-old Mongolian-speaking female who we have been asked to see in surgical consultation for acute cholecystitis. The video phone representative was used to gather history and for our entire conversation. She reports ongoing right upper quadrant abdominal pain intermittently over the past month. Her pain has progressively become more severe and more frequent. She came into the ED 0 week ago due to the severity of her pain. She reports her pain is in the right upper quadrant and radiates around the right side of her abdomen to her right mid back. She denies any other associated symptoms. No nausea, vomiting, fever or chills. Workup in the ED at that time showed evidence of cholelithiasis on ultrasound, but labs were unremarkable and no signs of cholecystitis at that time. She was discharged home with hydrocodone for pain. Her pain reportedly never improved and remained constant from that time. Over the last 2 days, the patient reports the pain was unbearable even with taking the hydrocodone. Therefore, she came back into the ED for evaluation. In the ER, vital signs were stable. Labs again were unremarkable with mild leukocytosis. White blood [place] count [place] [id number]. LFTs and lipase were normal. CT scan of the abdomen and pelvis showed cholelithiasis, but no CT evidence of acute cholecystitis. She continued to have persistent pain and was ultimately admitted for her right upper quadrant pain and surgical evaluation. She denies any previous abdominal surgeries. She reports the IV pain medication is helping with her pain, but her pain begins to get worse as the medication is wearing off. She is having some nausea this morning that she feels is related to the pain medication. She states her pain is aggravated by eating, and she has not been able to eat very much in the past few days due to the severity of her pain. Review of Systems Review of Systems: All systems reviewed & are unremarkable except as noted in HPI and below PMFSH Past Medical History Medical History Depression Surgical History Surgical History No significant past surgical history Family History Family History Father Alive and well Mother Diabetes mellitus Social History Social History Smoking status: Never smoker Tobacco type: cigarettes Second hand tobacco smoke exposure: No Alcohol intake: never Substance use: never Substance use type: does not use Do You Feel Safe in your Home?: Yes Lack of Transportation: No Lack of Food: Never True Current Housing: I Have Housing Concerned About Future Housing: No Difficulty Paying Gas/Electric Bills: No Difficulty Paying for Meds: No Currently Unemployed: No Education: Decline to Answer Difficulty w/ Childcare or Family Care: No Living arrangements: with family Occupation/Education: occupation Gender identity (if verbalized by the patient): Female Sexual Orientation (if Verbalized by the Patient): Straight or Heterosexual Spiritual care concerns: No Meds Home Medications and Allergies Home Medications ?Medication ?Instructions ?Recorded ?Confirmed ?Type nortriptyline 10 mg capsule 10 mg PO DAILY 04/26/22 08/31/24 History ibuprofen 600 mg tablet 600 mg PO TID PRN fever or pain 03/08/23 08/31/24 Rx #30 tabs docusate sodium 100 mg capsule 100 mg PO BID #14 caps 08/24/24 08/31/24 Rx (Colace) hydrocodone 5 mg-acetaminophen 325 1 tablet PO Q6H PRN pain #10 tabs 08/24/24 08/31/24 Rx mg tablet ondansetron 4 mg disintegrating 4 mg PO Q6H PRN nausea and 08/24/24 08/31/24 Rx tablet vomiting #10 tabs Allergies Allergy/AdvReac Type Severity Reaction Status Date / Time No Known Allergies Allergy Unknown Unknown Verified 04/08/24 08:35 Vital Signs Vital Signs - 24 hr 08/30/24 22:26 08/31/24 02:15 08/31/24 03:30 Temperature 97.4 F L Pulse Rate 88 78 78 Respiratory Rate 16 15 14 Blood Pressure 149/77 H 142/77 H 139/85 Pulse Oximetry 100 98 99 08/31/24 06:45 08/31/24 07:08 08/31/24 07:28 Temperature Pulse Rate 79 70 73 Respiratory Rate 15 15 16 Blood Pressure 141/87 H 132/78 140/79 Pulse Oximetry 99 99 99 Exam Const: General: no acute distress and uncomfortable (Very uncomfortable appearing due to pain) Nutritional Appearance: average body habitus Orientation/consciousness: patient oriented x3 HENMT: Head: normocephalic and atraumatic Ears: hearing grossly normal bilaterally Mouth: Yes moist mucous membranes Eyes: General: appearance normal, both eyes and all related structures Pupils: Equal, round and reactive pupils present Neck: Neck: normal visual inspection and full ROM Resp: Effort & Inspection: no respiratory distress Auscultation: clear to auscultation bilaterally Cardio: Rate: regular rate Rhythm: regular rhythm Heart sounds: S1 normal heart sound present and S2 normal heart sound present Peripheral pulses: Peripheral pulses 2+ throughout GI: Inspection: non-distended and no visible herniation GI Palp: Yes Soft to palpation, Yes Tenderness to palpation present (GI) (Right upper quadrant, positive Olguin's sign), No Guarding due to palpation present (GI), Yes No hepatosplenomegaly present and No Rebound tenderness present Percussion: Yes normal to percussion Auscultation: normal bowel sounds Skin: General skin exam: normal color Neuro: General: moves all extremities and no focal motor deficits Speech: normal speech Motor exam (neuro): 5/5 motor strength present throughout Extrem: General: normal to inspection and no edema Psych: Mental Status: mental status grossly normal Attitude: cooperative Insight: Good insight present (Psych) Judgement: Good judgement present (Psych) Results Labs 08/31/24 01:17 08/31/24 01:17 Labs: Abnormal lab results 08/31/24 Range/Units 01:17 WBC 11.9 H (4.5-10.0) K/mm3 RBC 4.00 L (4.2-5.4) M/mm3 Hgb 11.9 L (12.0-15.0) g/dL Hct 35.9 L (37.0-47.0) % MPV 11.0 H (7.4-10.4) fl Neut % (Auto) 84.1 H (45.5-73.1) % Lymph % (Auto) 11.0 L (18.3-44.2) % Abs Immat Gran (auto) 0.04 H (0.00-0.031) K/mm3 Absolute Neuts (auto) 10.0 H (1.3-6.7) K/mm3 Sodium 135 L (137-145) mmol/L Glucose 125 H (65-110) mg/dL Urine Ketones Trace H (Negative) mg/dL Diabetes panel 08/31/24 Range/Units 01:17 Sodium 135 L (137-145) mmol/L Potassium 3.8 (3.4-5.0) mmol/L Chloride 105 (98-107) mmol/L Carbon Dioxide 24 (22-30) mmol/L BUN 16 (7-17) mg/dL Creatinine 0.70 (0.7-1.0) mg/dL Glucose 125 H (65-110) mg/dL Calcium 9.2 (8.4-10.2) mg/dL AST 29 (14-36) U/L ALT 15 (6-35) U/L Alkaline Phosphatase 77 (38-126) U/L Total Protein 7.0 (6.3-8.2) g/dL Albumin 4.4 (3.5-5.1) g/dL Calcium panel 08/31/24 Range/Units 01:17 Calcium 9.2 (8.4-10.2) mg/dL Albumin 4.4 (3.5-5.1) g/dL Pituitary panel 08/31/24 Range/Units 01:17 Sodium 135 L (137-145) mmol/L Potassium 3.8 (3.4-5.0) mmol/L Chloride 105 (98-107) mmol/L Carbon Dioxide 24 (22-30) mmol/L BUN 16 (7-17) mg/dL Creatinine 0.70 (0.7-1.0) mg/dL Glucose 125 H (65-110) mg/dL Calcium 9.2 (8.4-10.2) mg/dL Adrenal panel 08/31/24 Range/Units 01:17 Sodium 135 L (137-145) mmol/L Potassium 3.8 (3.4-5.0) mmol/L Chloride 105 (98-107) mmol/L Carbon Dioxide 24 (22-30) mmol/L BUN 16 (7-17) mg/dL Creatinine 0.70 (0.7-1.0) mg/dL Glucose 125 H (65-110) mg/dL Calcium 9.2 (8.4-10.2) mg/dL Total Bilirubin 0.4 (0.2-1.3) mg/dL AST 29 (14-36) U/L ALT 15 (6-35) U/L Alkaline Phosphatase 77 (38-126) U/L Total Protein 7.0 (6.3-8.2) g/dL Albumin 4.4 (3.5-5.1) g/dL All other labs normal. Imaging Additional studies: ITS Impressions Abdomen/Pelvis CT 08/31/24 06:20 IMPRESSION: 1. Cholelithiasis. No evidence of acute cholecystitis.
--- NOTE | 2024-08-31 17:40 | PM.IMHP ---
H&P: HPI History of Present Illness Date/Time: 08/31/24 17:40 Chief Complaint: intractable nausea and vomiting Narrative: Pt having some RUQ pains for few weeks got worse also been vomiting not able to keep water or food down Came to ED for evaluation CT abdo shows - Cholelithiasis. No evidence of acute cholecystitis. Pt seen by surgery MD keep npo from [place] for lap jareth maribeth by bedside speaks some Divehi but mostly Trinidadian Pt has no PMH Pt has not had any surgeries before bit apprehensive Review of Systems Review of Systems: Pt having severe RUQ pains 9/10, nausea and severe vomiting All other 12 systems reviewed and negative apart from those in HPI PMFSH Past Medical History Medical History Depression Surgical History Surgical History No significant past surgical history Family History Family History Father Alive and well Mother Diabetes mellitus Social History Social History Smoking status: Never smoker Tobacco type: cigarettes Second hand tobacco smoke exposure: No Alcohol intake: never Substance use: never Substance use type: does not use Do You Feel Safe in your Home?: Yes Lack of Transportation: No Lack of Food: Never True Current Housing: I Have Housing Concerned About Future Housing: No Difficulty Paying Gas/Electric Bills: No Difficulty Paying for Meds: No Currently Unemployed: No Education: Decline to Answer Difficulty w/ Childcare or Family Care: No Living arrangements: with family Occupation/Education: occupation Gender identity (if verbalized by the patient): Female Sexual Orientation (if Verbalized by the Patient): Straight or Heterosexual Spiritual care concerns: No Meds Home Medications and Allergies Home Medications ?Medication ?Instructions ?Recorded ?Confirmed ?Type nortriptyline 10 mg capsule 10 mg PO DAILY 04/26/22 08/31/24 History ibuprofen 600 mg tablet 600 mg PO TID PRN fever or pain 03/08/23 08/31/24 Rx #30 tabs docusate sodium 100 mg capsule 100 mg PO BID #14 caps 08/24/24 08/31/24 Rx (Colace) hydrocodone 5 mg-acetaminophen 325 1 tablet PO Q6H PRN pain #10 tabs 08/24/24 08/31/24 Rx mg tablet ondansetron 4 mg disintegrating 4 mg PO Q6H PRN nausea and 08/24/24 08/31/24 Rx tablet vomiting #10 tabs Allergies Allergy/AdvReac Type Severity Reaction Status Date / Time No Known Allergies Allergy Unknown Unknown Verified 04/08/24 08:35 Vital Signs Vital Signs - 24 hr 08/30/24 22:26 08/31/24 02:15 08/31/24 03:30 Temperature 36.3 C L Pulse Rate 88 78 78 Respiratory Rate 16 15 14 Blood Pressure 149/77 H 142/77 H 139/85 Pulse Oximetry 100 98 99 08/31/24 06:45 08/31/24 07:08 08/31/24 07:28 Temperature Pulse Rate 79 70 73 Respiratory Rate 15 15 16 Blood Pressure 141/87 H 132/78 140/79 Pulse Oximetry 99 99 99 08/31/24 14:00 Temperature 36.8 C Pulse Rate 78 Respiratory Rate 20 Blood Pressure 143/73 H Pulse Oximetry 100 Exam Narrative: tired weak thin appearing Const: Nutritional Appearance: overweight Orientation/consciousness: oriented to person HENMT: Head: normal to inspection Resp: Effort & Inspection: no respiratory distress Auscultation: no rhonchi and no wheezes Cardio: Rate: regular rate Rhythm: regular rhythm GI: Inspection: normal to inspection GI Palp: No abdominal tenderness, No Guarding due to palpation present (GI) and No Hepatomegaly present Auscultation: normal bowel sounds Neuro: General: oriented to person H&P: Results Labs Labs: Short CBC 08/31/24 Range/Units 01:17 WBC 11.9 H (4.5-10.0) K/mm3 Hgb 11.9 L (12.0-15.0) g/dL Hct 35.9 L (37.0-47.0) % Plt Count 204 (150-375) k/mm3 BMP 08/31/24 01:17 Sodium 135 L Potassium 3.8 Chloride 105 Carbon Dioxide 24 BUN 16 Creatinine 0.70 Glucose 125 H Calcium 9.2 Liver Function 08/31/24 Range/Units 01:17 Total Bilirubin 0.4 (0.2-1.3) mg/dL Direct Bilirubin 0.0 (0-0.3) mg/dL AST 29 (14-36) U/L ALT 15 (6-35) U/L Alkaline Phosphatase 77 (38-126) U/L Albumin 4.4 (3.5-5.1) g/dL Urine 08/31/ Range/Units 01:17 Urine Color Yellow (Yellow) Urine Appearance Clear (Clear) Urine pH 5.0 (5.0-9.0) Ur Specific [place] 1.016 (1.001-1.035) Urine Protein Negative (Negative) mg/dL Urine Glucose (UA) Negative (Negative) mg/dL Assessment and Plan Assessment and plan (1) Acute calculous cholecystitis: Code(s): K80.00 - Calculus of gallbladder with acute cholecystitis without obstruction Status: Acute Assessment and Plan: Pt is npo from [place] Awaiting lap jareth in am Surgery MD on board (2) Nausea & vomiting: Code(s): R11.2 - Nausea with vomiting, unspecified Status: Acute Assessment and Plan: IV reglan and iv zofran on board prn nausea add iv protonix continuer iv fluids overnight (3) Biliary colic: Code(s): K80.50 - Calculus of bile duct without cholangitis or cholecystitis without obstruction Status: Acute Assessment and Plan: Pt can use IV dilaudid for pain prn not able to keep oral meds down (4) Dyslipidemia: Code(s): E78.5 - Hyperlipidemia, unspecified Status: Acute Assessment and Plan: order lipid panel to check ? cause of Cholelithiasis Plan Hold notrypline pt takes it for depression hyperglycemia order HBAIC to check for dm keep npo from [place] [facility] for dvt prop full code Hospitalist MIPS Advance Care Plan I have confirmed that the patient's Advanced Care Plan is present, code status is documented, or surrogate decision maker is listed in patient medical record.: Yes Medication Reconciliation I have utilized all available resources to obtain, update and review the patients current medications (includes all prescriptions, OTC, herbals, cannabis, and nutritional supplements).: Yes
[2024-08-31] MEDS: SODIUM CHLORIDE 0.9% IV 1,000 ML 70 ML IV CONT (18:45)
[2024-08-31] MEDS: METOCLOPRAMIDE HCL INJ 10 MG/2 ML VIAL 5 MG IV PUSH (18:50)
[2024-08-31] MEDS: PANTOPRAZOLE SODIUM IV 40 MG VIAL IV PUSH (18:50)
[2024-09-01] VITALS (9 sets, daily range): BP systolic 125–176; BP diastolic 64–87; PULSE 66–94; RESP 10–18; TEMP 36.4–36.9; O2SAT 95–100
[2024-09-01] MEDS: HYDROmorphone HCL INJ (*CRX) 1 MG/ML SYR 0.5 MG IV PUSH (06:34)
[2024-09-01] MEDS: ONDANSETRON INJ 4 MG/2 ML VIAL IV PUSH ×3 (06:34→15:42)
[2024-09-01 06:43] LABS: Hematocrit 34.8 % (37.0-47.0); Hemoglobin 11.4 g/dL (12.0-15.0); Mean Corpuscular HGB Conc 32.8 g/dl (32-36); Mean Corpuscular Hemoglobin 29.8 pg (26-34); Mean Corpuscular Volume 91.1 fl (80-100); Mean Platelet Volume 11.5 fl (7.4-10.4); Platelet Count Result 194 k/mm3 (150-375); Red Blood Count 3.82 M/mm3 (4.2-5.4); Red Cell Distribution Width 14.1 % (11.5-14.5); White Blood Count 6.9 K/mm3 (4.5-10.0)
[2024-09-01 06:51] LABS: INR 1.1; Prothrombin Time 14.2 Seconds (11.1-14.7)
[2024-09-01 06:52] LABS: Partial Thromboplastin Time 31.9 Seconds (22.3-36.8)
[2024-09-01 06:55] LABS: Alanine Aminotransferase 12 U/L (6-35); Albumin Level 3.9 g/dL (3.5-5.1); Alkaline Phosphatase 56 U/L (38-126); Anion Gap 4 mmol/L (4-12); Aspartate Amino Transferase 25 U/L (14-36); Bilirubin,Total 0.8 mg/dL (0.2-1.3); Blood Urea Nitrogen 12 mg/dL (7-17); Carbon Dioxide 24 mmol/L (22-30); Chloride 110 mmol/L (98-107); Estimated CRCL calculation 63 ml/min; Estimated Glomerular Filt Rate > 60; Glucose 91 mg/dL (65-110); Potassium 3.6 mmol/L (3.4-5.0); Sodium 138 mmol/L (137-145)
--- NOTE | 2024-09-01 07:18 | P.PNAN_ITS ---
Anes - Initial Pre Proc Eval Procedure: Operation Date: 09/01/24 09:00 Proposed Procedures p Laparoscopic Cholecystectomy, Possible Open - Rodrigo Wayne DO Date/Time: 09/01/24 07:18 Surgeon: Be Worthington MD Pre Op Diagnosis: A Biliary Colic/Nausea/Vomiting/Inability to christie Patient Data Age: 48 Gender: F Height: 1.6 m Weight: 52.2 kg Last Vital Signs Temp 36.7 C 09/01/24 05:55 Pulse 80 09/01/24 05:55 Resp 18 09/01/24 05:55 BP 125/64 09/01/24 05:55 Pulse Ox 100 09/01/24 05:55 O2 Del Method Room Air 08/31/24 09:00 Allergies Allergy/AdvReac Type Severity Reaction Status Date / Time No Known Allergies Allergy Unknown Unknown Verified 04/08/24 08:35 Home Medications ?Medication ?Instructions ?Recorded ?Confirmed ?Type nortriptyline 10 mg capsule 10 mg PO DAILY 04/26/22 08/31/24 History ibuprofen 600 mg tablet 600 mg PO TID PRN fever or pain 03/08/23 08/31/24 Rx #30 tabs docusate sodium 100 mg capsule 100 mg PO BID #14 caps 08/24/24 08/31/24 Rx (Colace) hydrocodone 5 mg-acetaminophen 325 1 tablet PO Q6H PRN pain #10 tabs 08/24/24 08/31/24 Rx mg tablet ondansetron 4 mg disintegrating 4 mg PO Q6H PRN nausea and 08/24/24 08/31/24 Rx tablet vomiting #10 tabs Laboratory Tests 09/01/24 06:08 WBC 6.9 K/mm3 (4.5-10.0) RBC 3.82 L M/mm3 (4.2-5.4) Hgb 11.4 L g/dL (12.0-15.0) Hct 34.8 L % (37.0-47.0) MCV 91.1 fl (80-100) MCH 29.8 pg (26-34) MCHC 32.8 g/dl (32-36) RDW 14.1 % (11.5-14.5) Plt Count 194 k/mm3 (150-375) MPV 11.5 H fl (7.4-10.4) PT 14.2 Seconds (11.1-14.7) INR 1.1 APTT 31.9 Seconds (22.3-36.8) Sodium 138 mmol/L (137-145) Potassium 3.6 mmol/L (3.4-5.0) Chloride 110 H mmol/L (98-107) Carbon Dioxide 24 mmol/L (22-30) Anion Gap 4 mmol/L (4-12) BUN 12 mg/dL (7-17) Creatinine 0.80 mg/dL (0.7-1.0) Estim Creat Clear Calc 63 ml/min Estimated GFR > 60 (59 - ) Glucose 91 mg/dL (65-110) Calcium 9.0 mg/dL (8.4-10.2) Total Bilirubin 0.8 mg/dL (0.2-1.3) AST 25 U/L (14-36) ALT 12 U/L (6-35) Alkaline Phosphatase 56 U/L (38-126) Total Protein 7.0 g/dL (6.3-8.2) Albumin 3.9 g/dL (3.5-5.1) Blood Type O Positive Antibody Screen Pending Patient hx anesthesia problems: none Family hx anesthesia problems: none Results Review: All pre-operative results and documents have been reviewed as part of the pre- operative evaluation. [facility] Past Medical History Medical History (Updated 09/01/24 @ 08:01 by Kenji Flores DO) Anxiety Hypertension Dyslipidemia Depression Surgical History Surgical History No significant past surgical history Family History Family History Father Alive and well Mother Diabetes mellitus Social History Social History Smoking status: Never smoker Tobacco type: cigarettes Second hand tobacco smoke exposure: No Alcohol intake: never Substance use: never Substance use type: does not use Do You Feel Safe in your Home?: Yes Lack of Transportation: No Lack of Food: Never True Current Housing: I Have Housing Concerned About Future Housing: No Difficulty Paying Gas/Electric Bills: No Difficulty Paying for Meds: No Currently Unemployed: No Education: Decline to Answer Difficulty w/ Childcare or Family Care: No Living arrangements: with family Occupation/Education: occupation Gender identity (if verbalized by the patient): Female Sexual Orientation (if Verbalized by the Patient): Straight or Heterosexual Spiritual care concerns: No Anes - Eval Final PreProcedure Day of Procedure 09/01/24 07:18 Patient weight: normal Heart: regular rate and rhythm Lungs: clear to auscultation Airway: Mallampati scale class II Neurological: alert and oriented Last oral intake: >/= 8 hours ASA classification: II Emergent: no Anesthetic plan: proceed Anesthesia type and monitoring: general ETT and standard monitoring Results Review: All pre-operative results and documents have been reviewed as part of the pre- operative evaluation. Informed Consent: The patient's anesthetic plan and its attendant risks and benefits were discussed with the patient/family/POA. Questions were solicited and answers provided to the satisfaction of the patient/family/POA.
[2024-09-01] MEDS: LACTATED RINGERS 1,000 ML 30 ML IV CONT ×2 (07:30→10:24)
--- NOTE | 2024-09-01 08:06 | SUR.PREOP ---
PT SPOUSE, FAIZA OVERTON, FLUENTLY BI-LINGUAL AND PRESENT WITH PT FOR INTERPRETATION.
--- NOTE | 2024-09-01 08:45 | WPDHPUPDATE1 ---
History and Physical Update Update Date/Time: 09/01/24 08:45 History and Physical has been reviewed, including an updated exam of the patient. There are NO changes in the patient's condition. Risks, benefits, and alternatives have been discussed and questions answered. Patient agrees to proceed with procedure.
[2024-09-01] MEDS: BUPIVACAINE/EPINEPHRINE 0.5% 30 ML VIAL INFILTRATE (09:26)
--- NOTE | 2024-09-01 09:45 | W.PM.PROC2 ---
Procedure Note - Detailed Date of Procedure 09/01/24 Pre-op Diagnosis Acute calculous cholecystitis Post-op Diagnosis Other (Cholelithiasis with biliary colic) Procedure Performed Laparoscopic cholecystectomy Surgeon Rodrigo Wayne DO Anesthesia General and Local (0.5% bupivacaine) Indications This 48-year-old woman who presented to the emergency department with constant right upper quadrant pain. She had been experiencing pains off and on for several months but this has become worse over past couple weeks. His now become constant pain over the past couple days. CT in the emergency department showed evidence of cholelithiasis. Her pain was unable to be controlled in the emergency department therefore she was admitted for further treatment. She did have a slightly elevated white blood count and pain persisted which was concerning for acute cholecystitis. Discussions were made with the patient about treatment options and decision was made to proceed with laparoscopic cholecystectomy, possible open. Findings Laparoscopic cholecystectomy was performed. The patient's gallbladder did not appear to have any significant acute inflammatory findings. There were a few pericholecystic adhesions that came down easily. There was a medium-sized gallstone within the gallbladder. The cystic duct appeared normal in size. No other abnormalities were noted. The gallbladder was removed and sent to the lab for pathology. Description of Procedure Procedure as well as risks, benefits, and alternatives were discussed with patient. Written consent was obtained and placed in chart prior to procedure. The patient was brought back to surgical suite. Patient was placed in supine position on operating table. Time-out was done to confirm patient and procedure. Patient was then intubated by the anesthesia department. Abdomen was prepped and draped in sterile fashion using chlorhexidine prep. 0.5% bupivacaine with epinephrine was infiltrated at each site of incision. An 11 millimeter vertical incision was made at the inferior portion of the umbilicus using a 15 blade scalpel. Blunt dissection was carried down to the linea alba. The linea alba was then incised using a 15 blade scalpel. The peritoneum was then bluntly entered. An 11 millimeter trocar was inserted and carbon dioxide insufflation was used to create a pneumoperitoneum. The camera was inserted and the abdomen was inspected. The patient was placed in reverse Trendelenberg position and rotated slightly to the left. A 5 millimeter incision was made in the epigastric region, and a 5 millimeter trocar was inserted under direct visualization. Two 5 millimeter incisions were made in the right upper quadrant, and two 5 millimeter trocars were inserted under direct visualization. The gallbladder was identified and grasped at the fundus and retracted superiorly. It was then grasped at the infundibulum retracted laterally. Careful dissection around the neck of the gallbladder was performed using blunt dissection with a [place] grasper and hook electrocautery. The cystic duct was identified, and a window was created behind it. The cystic artery was also identified and a window was created behind it. The critical view of safety was identified, visualizing the cystic duct running directly into the neck of the gallbladder, and the cystic artery running directly into the wall of the gallbladder. A 5 millimeter clip lithographic retoucher apprentice was then used to place 2 clips proximally and 1 clip distally on both the cystic duct and cystic artery. They were then both transected using endoscopic scissors. Once safely away from the paula hepatitis, the gallbladder was dissected free from the liver bed using hook electrocautery. Hemostasis was achieved along the way. The gallbladder was removed completely and then removed through the umbilical port. The liver bed was then inspected. Hemostasis appeared adequate, and our clips appeared secure. The area was gently irrigated with sterile saline. No other abnormalities were seen. The patient was flattened out in bed, and 1 final inspection was made around the abdominal cavity. The ports were then removed under direct visualization, the camera was removed, and the pneumoperitoneum was released. The fascia of the umbilical incision was approximated using an 0 Vicryl [id number] suture. The skin of the incisions was approximated using 4-0 Monocryl subcuticular sutures. Exofin glue was applied on top. The patient was then awakened from anesthesia, extubated, and transferred to recovery. Estimated Blood Loss 5 Urine Output 300 Pathology Yes (Gallbladder) Complications No immediate complications Condition Stable Disposition Floor [facility] Billing Surgery - Charge Forward: Surgery Billing
[2024-09-01] MEDS: fentaNYL CITRATE INJ (*CRX) 100 MCG/2 ML VIAL 25 MCG IV PUSH ×4 (10:12→10:30)
[2024-09-01] MEDS: HYDROcodone/acetaminophen (*CRX) 7.5-325 MG TABLET 1 TAB PO (11:02)
--- NOTE | 2024-09-01 15:37 | P.DS_ITS ---
DS: Admitting Diagnosis Discharge Date 09/01/24 Admitting Diagnosis intractable nausea and vomiting DS: Discharge Diagnosis Discharge Diagnosis (1) Biliary colic: Code(s): K80.50 - Calculus of bile duct without cholangitis or cholecystitis without obstruction Status: Acute DS: Summary Hospital Course Hospital Course: Pt having some RUQ pains for few weeks got worse also been vomiting not able to keep water or food down Came to ED for evaluation CT abdo shows - Cholelithiasis. No evidence of acute cholecystitis. Pt seen by surgery MD keep npo from [facility] for lap jareth maribeth RUQ ultrasound was obtained which was negative for cholecystitis but positive for cholelithiasis Gen surgery was consulted and she underwent laparoscopic cholecystectomy. Patient was okayed for this discharge this afternoon by gen surgery. She is tolerating diet and Nausea and vomiting much improved. PRN pain control. F/u with PCP in 3-5 days F/u with Gen surgery as instructed Time Spent with Patient Time attestation: Total time spent providing and/or coordinating discharge services: DS: Data Data Completed and Pending Pending studies at discharge: Pending at discharge 09/01/24 09:40 Surgical [PTH] Routine Labs on day of discharge: Labs from last 24 hours 09/01/24 06:08 WBC 6.9 RBC 3.82 L Hgb 11.4 L Hct 34.8 L MCV 91.1 MCH 29.8 MCHC 32.8 RDW 14.1 Plt Count 194 MPV 11.5 H PT 14.2 INR 1.1 APTT 31.9 Sodium 138 Potassium 3.6 Chloride 110 H Carbon Dioxide 24 Anion Gap 4 BUN 12 Creatinine 0.80 Estim Creat Clear Calc 63 Estimated GFR > 60 Glucose 91 Calcium 9.0 Total Bilirubin 0.8 AST 25 ALT 12 Alkaline Phosphatase 56 Total Protein 7.0 Albumin 3.9 Blood Type O Positive Antibody Screen Negative Discharge Plan Discharge Attending physician on discharge: Adriana Everett Consulting providers: Rodrigo Smith Discharging Clinician: Adriana Everett Anticipated Discharge Date/Time: 09/01/24 15:35 Patient Disposition: Home, Self-Care Activity: other - see discharge instructions Diet: low fat Wound Care Instructions: other - see discharge instructions Discharge Instructions: DISCHARGE INSTRUCTION SHEET FOR HERNIA, GALLBLADDER AND APPENDIX SURGERIES DR. SMITH PATIENT TO TAKE HOME 1. May shower in 24 hours, no soaking in bath x 2weeks. 2. Call office for: * Wound increasingly painful or bleeding * Vomiting * Fever of greater than 101 degrees 3. If no bowel movement for three days, take 1 oz. (30 ml) Milk of Magnesia or MiraLax 17g 1 to 2 times daily. 4. No heavy lifting > 10-15 pounds x weeks for hernia repairs and 2 weeks for laparoscopic cholecystectomy or appendectomy. 5. No driving for 3 days or while taking narcotic pain medications. 6. Ice to surgical site for 48 hours (30 min on, then 30 min off). 7. Up walking 10-30 minutes three times per day. 8. Resume previous home medications. 9. Follow-up 10-14 days in office for wound check or as previously scheduled. ([id number]) 10. Oral pain medications prescription to be sent to pharmacy. Take Tylenol 500mg every 6 hours and Ibuprofen 600mg every 6 hours for the first 2 days, then as needed. 11. NUTRITION: Start out by drinking fluids and increase your diet as tolerated. If you experience nausea, try dry toast, crackers, and 7-UP. If nausea or vomiting persists, contact your surgeon?s office. 12. Gallbladders-Low Fat Diet for 2 weeks (send care note of low fat diet) 13. Inguinal Hernias-wear scrotal support for 48 hours 14. Abdominal Hernias-if sent home with abdominal binder, wear for the first 2 weeks (may remove to shower or at night to sleep). Revised January 2019 Patient Instructions: Antibiotic Form Patient Language: Pashto Stand Alone Forms: General Discharge Information Follow-up/Referrals: Rodrigo Smith DO [Physician] - 2 Weeks Discharge Medications: New hydrocodone-acetaminophen 5-325 mg tablet 1 tablet PO Q4H PRN (Reason: pain) Qty: 10 0RF ondansetron 4 mg tablet,disintegrating 4 mg PO Q8H PRN (Reason: nausea and vomiting) Qty: 14 0RF Continued nortriptyline 10 mg capsule 10 mg PO DAILY ibuprofen 600 mg tablet 600 mg PO TID PRN (Reason: fever or pain) Qty: 30 0RF hydrocodone-acetaminophen 5-325 mg tablet 1 tablet PO Q6H PRN (Reason: pain) Qty: 10 0RF ondansetron 4 mg tablet,disintegrating 4 mg PO Q6H PRN (Reason: nausea and vomiting) Qty: 10 0RF docusate sodium [Colace] 100 mg capsule 100 mg PO BID Qty: 14 0RF Date of admission: 08/31/24 10:49 Primary Care Provider: ShaynaAnkita Admitting Provider: Be Worthington V. Attending physician on admission: Be Worthington V. Condition: Stable
--- OUTSIDE RECORDS SUMMARY | 2024-09-07 05:09 | XMS_ITS | Referral Summary ---
Author Organization [facility] Address [address] [place] [address] Care Team Providers Care Chronometer Repairer Name Role Phone Unavailable Primary Care Provider Unavailabl e Source Comments [facility],non-owned Affiliates and Associated Physician Practices is amultiple site organization consisting of ambulatory clinics and hospital sitesin [place], [place], [place] and [place]. This disclosure is being madepursuant to the Care Everywhere program and may not contain all information available regarding this patient. Last updated 18.[facility] Social History Tobacco Use Types Packs/Day Years Used Date Smoking Tobacco: Never Assessed Sex and Gender Information Value Date Recorded Sex Assigned at Not on file Gender Identity Not on file Sexual Orientation Not on file Last Filed Vital Signs Vital Sign Reading Time Taken Comments Blood Pressure 124/68 04/11/2019 10:33 AM CDT Pulse 70 04/11/2019 10:33 AM CDT Temperature 37.1 ??C (98.8 ??F) 04/11/2019 10:33 AM C DT Respiratory Rate - - Oxygen Saturation 98% 04/11/2019 10:33 AM CDT Inhaled Oxygen Concentration - - Weight 52.2 kg (115 lb) 04/11/2019 10:33 AM CDT Height 162.6 cm (5' 4 ) 04/11/2019 10:33 AM CDT Body Mass Index 19.74 04/11/2019 10:33 AM CDT Plan of Treatment Not on file
--- OUTSIDE RECORDS SUMMARY | 2024-09-07 05:09 | XMS_ITS | Encounter Summary ---
Author Organization [facility] Address [address] [place] [address] Phone Care Team Providers Care Metals Sales Representative Name Role Phone No, Physician Primary Care Provider [phone] Encounter Details Date Type Department Care Team (Late st Contact Info) Description 01/15/2024 Telephone [facility] Ophthalmology [facility] [place], [place] [id number] Merlin Aguilar, OD [address] O[address]THALMOLOGY, [facility] [address] [place] [address] Social History Tobacco Use Types Packs/Day Years Used Date Smoking Tobacco: Never Comments Unknown Sex and Gender Information Value Date Recorded Sex Assigned at Not on file Legal Sex Female 11:04 AM CDT Gender Identity Not on file Sexual Orientation Not on file documented as of this encounter Miscellaneous Notes * Telephone Encounter - Sharda Hinds - 01/17/2024 12:28 PM CDT Sent message to ues to schedule * Telephone Encounter - Elías Brice - 01/15/2024 3:00 PM CDT Pt's spouse called and stated that there is supposed to be an appt for a sx consult that Dr Aguilar was supposed to set. Pt's spouse would like an update. Pt's Spouse: [phone] documented in this encounter Plan of Treatment Not on file documented as of this encounter Visit Diagnoses Not on filedocumented in this encounter Care Teams Metals Sales Representative Relationship Specialty Start Date End Date No, Physician PCP - General 01/09/24 documented as of this encounter
--- OUTSIDE RECORDS SUMMARY | 2024-09-07 05:09 | XMS_ITS | Clinical Summary ---
Author Organization [facility] Address [address] [place] [address] Care Team Providers Care Asbestos Shingle Roofer Name Role Phone No, Physician Primary Care Provider [phone] Allergies No known active allergies Medications lisinopriL (PRINIVIL,ZESTR IL) 10 mg tablet Take 1 tablet (10 mg total) by mouth daily for 30 days 4 Active nortriptyline (PAMELOR) 10 mg capsule TAKE 1 CAPSULE BY MOUTH ONCE DAILY AT NIGHT . APPOINTMENT REQUIRED FOR FUTURE REFILLS 4 Active Active Problems Problem Noted Date Diagnosed Date Anatomical narrow angle, bilateral 01/09/2024 Assessment & Plan (05/11/2024 9:35 PM CDT): - POM1 s/p laser peripheral iridotomy (LPI) OU - Patent laser peripheral iridotomy (LPI) appears patent OU today - Gonio appears stable - Patient continues to have positive visual phenomenon in dim lightings. Less likely that these were caused by intermittent angle closure previously - Feels that her eyes have been pretty dry recently, patient wondering if dry eyes could be contributing. Plan - RTC in 3 months for DFE OU to rule out (r/o) retinal pathology contributing to visual phenomenon - PFATs QID PRN OU Assessment & Plan (04/10/2024 2:37 PM CDT): here for lpi both eyes r/b/a lpi discussed including need for repeat procedure and dysphotopsias see procedure note for further details PF QID x 4 days f/u [facility] 6 weeks for lpi patency if iop < 20 good to go today Assessment & Plan (02/07/2024 3:38 PM CDT): Narrow with PAS on gonio, pigment on ant lens capsule, endorses sx of eye pain and flashing lights in dark room left eye (OS) > right eye (OD), low hyperope May be having intermittent closure Intraocular pressure (IOP) 08/22 RTC next av glc laser peripheral iridotomy (LPI) both eyes (OU), RNFL OU Assessment & Plan (01/09/2024 3:33 PM CDT): Bare anterior TM on gonio OU From patients history likely PVD OS > OD Symptoms have been present for 1 month, BCVA very good OU Defer DFE today, will have patient RTC for PI eval/DFE Educated and reassured patient of findings S/s of RD educated to patient, LISHA RTC if worsening/new signs Medical History Medical History Date Comments HTN (hypertension) Depression Family History Medical History Relation Name Comments Diabetes Mother Glaucoma Mother Relation Name Status Comments Mother Social History Tobacco Use Types Packs/Day Years Used Date Smoking Tobacco: Never Tobacco Cessation:Counseling Given: Not Answered Comments Unknown Sex and Gender Information Value Date Recorded Sex Assigned at Not on file Legal Sex Female 11:04 AM CDT Gender Identity Not on file Sexual Orientation Not on file Obstetrics History Plan of Treatment Health Maintenance Due Date Last Done Comments Breast Cancer Screening-Mammogram 1977 Cervical Cancer Screening 1977 Colon Cancer Screening-Colonoscopy 1977 Depression Screening 1977 Hepatitis C Screening 1977 Hepatitis B Screening 1995 Regular Well Visit/Exam 18-64 1995 Influenza Vaccine (#1) 2024 9, 07/30/2006 DTaP/Tdap/Td Vaccine (2 - Td or Tdap) 06/15/2024 06/15/2014 HPV Vaccines Completed 02/18/2020, 10/06/2019, 07/23/2019 Pneumococcal vaccine <65 Aged Out No longer eligible based on patient's age to complete this topic Insurance [facility] H[facility]/PPO Address: [facility] [address] [place] [address] Care Teams Asbestos Shingle Roofer Relationship Specialty Start Date End Date No, Physician PCP - General 01/09/24
--- OUTSIDE RECORDS SUMMARY | 2024-09-07 05:09 | XMS_ITS | Encounter Summary ---
Author Organization [facility] Address [address] [place] [address] Phone Care Team Providers Care Asset Protection Specialist Name Role Phone No, Physician Primary Care Provider [phone] Reason for Visit * Reason Onset Date Comments Scheduling Appointments 01/23/2024 Encounter Details Date Type Department Care Team (Late st Contact Info) Description 01/23/2024 Telephone [facility] Ophthalmology [facility], [facility] [place], [place] [id number] Merlin Aguilar, OD [address] OPHTHALMOLOGY, [facility] [address] [place], [place] [id number] Scheduling Appointments Social History Tobacco Use Types Packs/Day Years Used Date Smoking Tobacco: Never Comments Unknown Sex and Gender Information Value Date Recorded Sex Assigned at Not on file Legal Sex Female 11:04 AM CDT Gender Identity Not on file Sexual Orientation Not on file documented as of this encounter Miscellaneous Notes * Telephone Encounter - Shanthi Sethi RMA - 01/30/2024 3:29 PM CDT Pt's Dariusz called to schedule pt @ [facility]. Pt was scheduled in available OBslot, 5.31.24. Helpdesk Technician was also scheduled. Pt's #: [phone] * Telephone Encounter - Tim Lion - 01/23/2024 12:40 PM CDT Pt call to follow up on getting the PT schedule for SX PT is still having eye issues that are getting worse Dariusz [phone] documented in this encounter Plan of Treatment Not on file documented as of this encounter Visit Diagnoses Not on filedocumented in this encounter Care Teams Asset Protection Specialist Relationship Specialty Start Date End Date No, Physician PCP - General 01/09/24 documented as of this encounter
--- OUTSIDE RECORDS SUMMARY | 2024-09-07 05:09 | XMS_ITS | Encounter Summary ---
Author Organization [facility] Address [address] [place] [address] Phone Care Team Providers Care Goldbeater Name Role Phone No, Physician Primary Care Provider [phone] Reason for Referral * Procedure (Routine) - Pending Review Specialty Diagnoses / Procedures Referred By Contac t Referred To Contact Diagnoses Anatomical narrow angle, bilateral Procedures Yag Iridotomy - OS - Left Eye Koffi Colón MD [address] [place] [address] Phone: tel: fax: [facility] (All Locations) Referral ID Status Reason Start Date Expiration Date V isits Requested Visits Authorized [id number] Pending Review 04/10/2024 05/10/2025 1 1 * Procedure (Routine) - Pending Review Specialty Diagnoses / Procedures Referred By Contac t Referred To Contact Diagnoses Anatomical narrow angle, bilateral Procedures Yag Iridotomy - OD - Right Eye Koffi Colón MD [address] [place] [address] Phone: tel: fax: [facility] (All Locations) Referral ID Status Reason Start Date Expiration Date V isits Requested Visits Authorized [id number] Pending Review 04/10/2024 05/10/2025 1 1 Reason for Visit * Reason Comments Anatomically narrow angles Encounter Details Date Type Department Care Team (Late st Contact Info) Description 04/10/2024 2:00 PM CDT Office Visit [facility] Ophthalmology [address] [place] [address] 1st [place] [address] Anatomical narrow angle, bilateral (Primary Dx) Social History Tobacco Use Types Packs/Day Years Used Date Smoking Tobacco: Never Comments Unknown Sex and Gender Information Value Date Recorded Sex Assigned at Not on file Legal Sex Female 11:04 AM CDT Gender Identity Not on file Sexual Orientation Not on file documented as of this encounter Ordered Prescriptions Prescription Sig Dispense Quantity Refills Last Filled Start Date End Date prednisoLONE acetate (PRED FORTE) 1 % ophthalmic suspension Administer 1 drop into both eyes 4 (four) times a day for 4 days 5 mL 04/10/2024 documented in this encounter Progress Notes * Koffi Colón MD - 04/10/2024 2:00 PM CDT Problem Anatomical Narrow Angle, Bilateral Assessment/Plan Diagnoses and all orders for this visit: Anatomical narrow angle, bilateral (Primary) Assessment & Plan: here for lpi both eyes r/b/a lpi discussed including need for repeat procedure and dysphotopsias see procedure note for further details PF QID x 4 days f/u [facility] 6 weeks for lpi patency if iop < 20 good to go today Orders: - Yag Iridotomy - OD - Right Eye - Yag Iridotomy - OS - Left Eye Other orders - prednisoLONE acetate (PRED FORTE) 1 % ophthalmic suspension; Administer 1 drop into both eyes 4 (four) times a day for 4 days Return in about 6 weeks (around 05/22/2024) for follow up lpi both eyes [facility]. documented in this encounter Miscellaneous Notes * Assessment & Plan Note - Koffi Colón MD - 04/10/2024 2:35 PM CDT Associated Problem(s): Anatomical narrow angle, bilateral here for lpi both eyes r/b/a lpi discussed including need for repeat procedure and dysphotopsias see procedure note for further details PF QID x 4 days f/u [facility] 6 weeks for lpi patency if iop < 20 good to go today documented in this encounter Plan of Treatment Not on file documented as of this encounter Procedures Procedure Name Priority Date/Time Associated Diagnosis Comments YAG IRIDOTOMY - OS - LEFT EYE Routine 04/10/2024 2:37 PM CDT Anatomical narrow angle, bilateral YAG IRIDOTOMY - OD - RIGHT EYE Routine 04/10/2024 2:36 PM CDT Anatomical narrow angle, bilateral documented in this encounter Results * Yag Iridotomy - OS - Left Eye (04/10/2024 2:37 PM CDT) Anatomical Region Laterality Modality Head Laser Room Narrative 04/10/2024 2:37 PM CDT Pre-laser Medication Anesthetic drops used during this laser treatment included: proparacaine. Prior to treatment the operative eye had the following drop(s) instilled, Iopidine 0.5%. Pre-laser IOP The pre-laser IOP was 14 at Laser Iridotomy 3 applications were applied to the operative eye, The total energy was 15. E-Prescribed Medication The following medication(s) - Prednisolone 1% was sent to the patients pharmacy. the patient tolerated the procedure. there were no complications during today's treatment. The patient will use the prescribed medication and was instructed to call immediately for any redness, vision loss, pain, swelling, and draining or pus-like material, fevers, or any other problems. The patient was instructed regarding their follow-up appointment. The patient received written and/or verbal post procedure care education. Notes 5 mmHg x 3 shots us Ameay Feng Naravane MD OPHTH CLINIC PROCEDURES Final Result * Yag Iridotomy - OD - Right Eye (04/10/2024 2:36 PM CDT) Anatomical Region Laterality Modality Head Laser Room Narrative 04/10/2024 2:36 PM CDT Time Out Informed consent was obtained after all risks, benefits and alternatives were explained to the patient. The patient understood, agreed and wished to proceed. Timeout was completed verifying the patient, procedure, laterality and allergies. Pre-laser Medication Anesthetic drops used during this laser treatment included: proparacaine. Prior to treatment the operative eye had the following drop(s) instilled, Iopidine 0.5%. Pre-laser IOP The pre-laser IOP was 12 at Laser Iridotomy 2 applications were applied to the operative eye, The total energy was 12. Post-laser Medication Pred Forte 1% was placed in the operative eye at the end of the procedure. E-Prescribed Medication The following medication(s) - Prednisolone 1% was sent to the patients pharmacy. the patient tolerated the procedure. there were no complications during today's treatment. The patient will use the prescribed medication and was instructed to call immediately for any redness, vision loss, pain, swelling, and draining or pus-like material, fevers, or any other problems. The patient was instructed regarding their follow-up appointment. The patient received written and/or verbal post procedure care education. Notes 6 mJ x 2 spots Koffi Colón MD OPHTH CLINIC PROCEDURES Final Result documented in this encounter Visit Diagnoses Diagnosis Anatomical narrow angle, bilateral- Primary documented in this encounter Eye Exam Visual Acuity (Snellen - Linear) Right eye Left eye Dist sc 20/50 20/40 Dist ph sc 20/25 20/25 Tonometry #1 (Applanation, 2:37 PM) Right eye Left eye Pressure 12 14 Tonometry #2 (Applanation, 3:02 PM) Right eye Left eye Pressure 16 16 Tonometry Comments IOP 16 OU s/p YAG PI OU Gonioscopy Right eye Left eye Temporal 2 PAS 2PAS Nasal 2 PAS 2 PAS Superior 2 PAS 2 PAS Inferior 3 3 Pupils Dark Light Shape React APD Right eye 5 4 Round Minimal None Left eye 5 4 Round Minimal None Neuro/Psych Oriented x3: Yes Mood/Affect: Anxious Slit Lamp Exam Right eye Left eye Lids/Lashes Normal Normal Conjunctiva/Sclera White and quiet White and lupe et Cornea Clear Clear Anterior Chamber narrow and quiet narrow and lupe et Iris Round and reactive Round and maegan ctive Lens Clear, anterior pigment Clear, a nterior pig Anterior Vitreous lobo neg lobo neg Care Teams Goldbeater Relationship Specialty Start Date End Date No, Physician PCP - General 01/09/24 documented as of this encounter
--- OUTSIDE RECORDS SUMMARY | 2024-09-07 05:09 | XMS_ITS | Clinical Summary ---
Author Organization [facility] Address [address] [place] [address] Care Team Providers Care Manager Name Role Phone Unavailable Primary Care Provider Unavailabl e Source Comments [facility],non-owned Affiliates and Associated Physician Practices is amultiple site organization consisting of ambulatory clinics and hospital sitesin [place], [place], [place] and [place]. This disclosure is being madepursuant to the Care Everywhere program and may not contain all information available regarding this patient. Last updated 18.[facility] Social History Tobacco Use Types Packs/Day Years [...] 04/11/2019 10:33 AM CDT Plan of Treatment Health Maintenance Due Date Last Done Comments COLOGUARD (AGES 45-75) - COL ON CA SCREENING 1977 COLON MONITORING 1977 COLONOSCOPY - COLON CA SCREENING 1977 CT COLONOGRAPHY - COLON CA SCREENING 1977 Colorectal Cancer Screening 1977 FIT - COLON CA SCREENING 1977 FLEX SIG - COLON CA SCREENING 1977 LIPID TESTING 1977 MAMMOGRAM 1977 PAP SMEAR 1977 HIV SCREENING 1992 HEPATITIS C SCREENING 10/22/1995 DTAP/TDAP/TD VACCINES (1 - Tdap) 1996 HEPATITIS B VACCINE (1 of 3 - 19+ 3-dose series) 1996 DEPRESSION SCREENING 09/09/2023 COVID-19 VACCINE (1 - 2023-2 5 season) 2024 INFLUENZA VACCINE (#1) 2024 ZOSTER VACCINE (1 of 2) 2027 HIB VACCINE Aged Out No longer eligi ble based on patient's age to complete this topic HPV VACCINE Aged Out No longer eligi ble based on patient's age to complete this topic MENINGOCOCCAL VACCINE Aged Out No alejandro gadiel eligible based on patient's age to complete this topic PNEUMOCOCCAL VACCINE Aged Out No long er eligible based on patient's age to complete this topic
--- OUTSIDE RECORDS SUMMARY | 2024-09-07 05:09 | XMS_ITS | Encounter Summary ---
Author Organization [facility] Address [address] [place] [address] Phone Care Team Providers Care Commercial Green Building Architect Name Role Phone No, Physician Primary Care Provider [phone] Reason for Visit * Reason Comments Flashes, Light Encounter Details Date Type Department Care Team (Late st Contact Info) Description 01/09/2024 2:30 PM CDT Office Visit [facility] [address] [place] [address] Merlin Aguilar, OD [address] DEPT OPHTHALMOLOGY, [place] [address] Anatomical narrow angle, bilateral (Primary Dx) Social History Tobacco Use Types Packs/Day Years Used Date Smoking Tobacco: Never Tobacco Cessation:Counseling Given: Not Answered Comments Unknown Sex and Gender Information Value Date Recorded Sex Assigned at Not on file Legal Sex Female 11:04 AM CDT Gender Identity Not on file Sexual Orientation Not on file documented as of this encounter Progress Notes * Merlin Aguilar, OD - 01/09/2024 2:30 PM CDT A&P/Orders Assessment/Plan Diagnoses and all orders for this visit: Anatomical narrow angle, bilateral (Primary) Assessment & Plan: Bare anterior TM on gonio OU From patients history likely PVD OS > OD Symptoms have been present for 1 month, BCVA very good OU Defer DFE today, will have patient RTC for PI eval/DFE Educated and reassured patient of findings S/s of RD educated to patient, LISHA RTC if worsening/new signs PLAN FOR NEXT VISIT Return for PI eval. documented in this encounter Miscellaneous Notes * Assessment & Plan Note - Merlin Aguilar, OD - 01/09/2024 3:33 PM CDT Associated Problem(s): Anatomical narrow angle, bilateral Bare anterior TM on gonio OU From patients history likely PVD OS > OD Symptoms have been present for 1 month, BCVA very good OU Defer DFE today, will have patient RTC for PI eval/DFE Educated and reassured patient of findings S/s of RD educated to patient, LISHA RTC if worsening/new signs documented in this encounter Plan of Treatment Not on file documented as of this encounter Visit Diagnoses Diagnosis Anatomical narrow angle, bilateral- Primary documented in this encounter Historical Medications * This list may reflect changes made after this encounter. nortriptyline (PAMELOR) 10 mg capsule TAKE 1 CAPSULE BY MOUTH ONCE DAILY AT NIGHT . APPOINTMENT REQUIRED FOR FUTURE REFILLS 12/20/2023 lisinopriL (PRINIVIL,ZESTRI L) 10 mg tablet Take 1 tablet (10 mg total) by mouth daily for 30 days 12/30/2023 added in this encounter Eye Exam Visual Acuity (Snellen - Linear) Right eye Left eye Dist sc 20/50 20/25 Dist ph sc 20/25 -2 Pt has new glasses that she's picking up today. Tonometry (Tonopen, 2:53 PM) Right eye Left eye Pressure 16 17 Gonioscopy (Zeiss, four mirror) Right eye Left eye Temporal 1 1 Nasal 1 1 Superior 1 1 Inferior 1 1 Pupils Dark Light Shape React APD Right eye 4.5 4 Round Brisk None Left eye 4.5 4 Round Brisk None Visual Tineo Right eye Left eye Full Extraocular Movement Right eye Left eye Full Full Slit Lamp Exam Right eye Left eye Lids/Lashes Normal Normal Conjunctiva/Sclera White and quiet White and lupe et Cornea Clear Clear Anterior Chamber narrow by VH narrow by VH Iris Round and reactive Round and maegan ctive Lens Clear, anterior pigment Clear Fundus Exam Right eye Left eye Posterior Vitreous lobo neg lobo neg Disc Normal Normal C/D Ratio 0.35 0.35 Care Teams Commercial Green Building Architect Relationship Specialty Start Date End Date No, Physician PCP - General 01/09/24 documented as of this encounter
--- OUTSIDE RECORDS SUMMARY | 2024-09-07 05:09 | XMS_ITS | Encounter Summary ---
Author Organization [facility] Address [address] [place] [address] Care Team Providers Care Security Vehicle Patrol Officer Name Role Phone Unavailable Primary Care Provider Unavailabl e Reason for Visit * Reason Onset Date Comments Headache Dizziness Cough Ear Pain Encounter Opened In Error 04/11/2019 Encounter Details Date Type Department Care Team (Late st Contact Info) Description 04/11/2019 10:40 AM CDT Office Visit [facility] AT [address] [phone] Provider, [facility] ERRONEOUS ENCOUNTER--DISREGARD (Primary Dx) Social History Tobacco Use Types Packs/Day Years Used Date Smoking Tobacco: Never Assessed Sex and Gender Information Value Date Recorded Sex Assigned at Not on file Gender Identity Not on file Sexual Orientation Not on file documented as of this encounter Last Filed Vital Signs Vital Sign Reading [...] Mass Index 19.74 04/11/2019 10:33 AM CDT documented in this encounter Progress Notes * Beba Rosenthal, TINO-MICA PASTER - 04/11/2019 10:43 AM CDT Hannah Lyons encounter was opened in error. Please disregard any activity associated with this encounter. documented in this encounter Plan of Treatment Not on file documented as of this encounter Visit Diagnoses Diagnosis ERRONEOUS ENCOUNTER--DISREGARD- Primary documented in this encounter
--- OUTSIDE RECORDS SUMMARY | 2024-09-07 05:09 | XMS_ITS | Referral Summary ---
Author Organization [facility] Address [address] [place] [address] Care Team Providers Care Fitness Technician Name Role Phone No, Physician Primary Care Provider [phone] Allergies No known active allergies Medications lisinopriL [...] to patient, LISHA RTC if worsening/new signs Social History Tobacco Use Types Packs/Day Years Used Date Smoking Tobacco: Never Tobacco Cessation:Counseling Given: Not Answered Comments Unknown Sex and Gender Information Value Date Recorded Sex Assigned at Not on file Legal Sex Female 11:04 AM CDT Gender Identity Not on file Sexual Orientation Not on file Plan of Treatment Not on file Insurance [facility] [employer] Care Teams Fitness Technician Relationship Specialty Start Date End Date No, Physician PCP - General 01/09/24
--- OUTSIDE RECORDS SUMMARY | 2024-09-07 05:09 | XMS_ITS | Encounter Summary ---
Author Organization [facility] Address [address] [place] [address] Phone Care Team Providers Care Project Admin Name Role Phone No, Physician Primary Care Provider [phone] Reason for Visit * Reason Comments Follow-up Encounter Details Date Type Department Care Team (Late st Contact Info) Description 05/08/2024 3:30 PM CDT Office Visit [facility] Ophthalmology [address] [place] [address] [place] [phone] Magda Mcmahan MD [address] [place] [address] Anatomical narrow angle, bilateral (Primary Dx) Social History Tobacco Use Types Packs/Day Years Used Date Smoking Tobacco: Never Comments Unknown Sex and Gender Information Value Date Recorded Sex Assigned at Not on file Legal Sex Female 11:04 AM CDT Gender Identity Not on file Sexual Orientation Not on file documented as of this encounter Patient Instructions * Patient Instructions* Magda Mcmahan MD - 05/08/2024 3:30 PM CDT Images from the original note were not included. Lubricant Eye Drops ( Artificial Tears ) -- Artificial tears are moisturizing eye drops. Like dry skin, dry eyes can cause irritation and discomfort. Recent eye surgery, glaucoma medications, air conditioning/heating/fans, and other factorscan make the eyes feel more dry. -- Artificial tears are sold over the counter (no prescription needed) at grocery stores and pharmacies. There are many brands (Systane, Refresh, Blink, store brand, and others); I do not think onebrand is better than another. Avoid drops that say get the red out or red out . They often come in vials (as seen in the picture below). Remove the cap and use throughout the day (making sure to throw the vial out at the end of the day) -- For many people, artificial tears work best when used at least twice per day. If the watery artificial tears don't last long enough, you can try gel or ointment (sometimes marketed for bedtime or PM ), which are thicker moisturizing drops. The thicker drops do make the vision momentarily blurrier, so many people prefer to use them at night. documented in this encounter Progress Notes * Magda Mcmahan MD - 05/08/2024 3:30 PM CDT Assessment and Plan Problem List Eye/Vision Problems Anatomical narrow angle, bilateral - Primary Current Assessment & Plan - POM1 s/p laser peripheral iridotomy (LPI) [...] visual phenomenon - PFATs QID PRN OU Follow Up: Return in about 3 months (around 08/08/2024) for Dilated exam (AM exam). Cosigned by Jarrell Culver MD PhD at 05/11/2024 9:37 PM CDT Associated attestation - Jarrell Culver MD PhD - 05/11/2024 9:37 PM CDT I have seen, examined, and discussed the patient with the resident and agree with the above exam and plan with the following changes/additions: no changes. I personally performed gonioscopy and agree with the findings as documented. The patient appears tohave moderately open angles (at least grade 2 throughout) with patchy PAS versus iris processes. Asthe angle does not appear occludable at this time, okay to proceed with dilation at next visit (consider post-dilation IOP check). Jarrell Culver MD PhD 05/11/2024 9:36 PM documented in this encounter Miscellaneous Notes * Assessment & Plan Note - Magda Mcmahan MD - 05/08/2024 4:21 PM CDT Associated Problem(s): Anatomical narrow angle, bilateral - POM1 s/p laser peripheral iridotomy (LPI) [...] visual phenomenon - PFATs QID PRN OU * Addendum Note - Jarrell Culver MD PhD - 05/08/2024 3:30 PM CDTAddended by: JARRELL CULVER on: 05/11/2024 09:37 PM Modules accepted: Level of Service documented in this encounter Plan of Treatment Not on file documented as of this encounter Visit Diagnoses Diagnosis Anatomical narrow angle, bilateral- Primary documented in this encounter Eye Exam Visual Acuity (Snellen - Linear) Right eye Left eye Dist sc 20/50 20/40 +2 Dist ph sc 20/40 20/25 -2 Tonometry (Tonopen, 3:44 PM) Right eye Left eye Pressure 17 18 Gonioscopy (Cuco, four mirror) Right eye Left eye Temporal Gr 2, fine PAS vs iris processes Gr 2, fine PAS vs iris processes Nasal Gr 2, fine PAS vs iris processes Gr 2, fine PAS vs iris processes Superior Gr 3, fine PAS vs iris processes Gr 3, fine PAS vs iris processes Inferior Gr 3, fine PAS vs iris processes Gr 3, fine PAS vs iris processes Pupils Dark Light Shape React APD Right eye 5 4 Round Brisk None Left eye 5 4 Round Brisk None Visual Tineo Right eye Left eye Full Full Extraocular Movement Right eye Left eye Full Full Neuro/Psych Oriented x3: Yes Mood/Affect: Normal External Exam Right eye Left eye External Normal Normal Slit Lamp Exam Right eye Left eye Lids/Lashes Normal Normal Conjunctiva/Sclera White and quiet White and lupe et Cornea Clear Clear Anterior Chamber narrow and quiet narrow and lupe et Iris Patent LPI at 11 oclock Patent L PI at 2 oclock Lens Clear, anterior pigment Clear, a nterior pig Anterior Vitreous lobo neg lobo neg Care Teams Project Admin Relationship Specialty Start Date End Date No, Physician PCP - General 01/09/24 documented as of this encounter
--- OUTSIDE RECORDS SUMMARY | 2024-09-07 05:09 | XMS_ITS | Encounter Summary ---
Author Organization [facility] Address [address] [place] [address] Phone Care Team Providers Care Bullet Charging Machine Operator Name Role Phone No, Physician Primary Care Provider [phone] Reason for Visit * Reason Comments Eye Exam Encounter Details Date Type Department Care Team (Late st Contact Info) Description 02/07/2024 2:20 PM CDT Office Visit [facility] Ophthalmology [address] [place] [address] [place] [phone] Anatomical narrow angle, bilateral (Primary Dx) Social History Tobacco Use Types Packs/Day Years Used Date Smoking Tobacco: Never Comments Unknown Sex and Gender Information Value Date Recorded Sex Assigned at Not on file Legal Sex Female 11:04 AM CDT Gender Identity Not on file Sexual Orientation Not on file documented as of this encounter Progress Notes * Eli Brooks MD - 02/07/2024 2:20 PM CDT Assessment/Plan Diagnoses and all orders for this visit: Anatomical narrow angle, bilateral (Primary) Assessment & Plan: Narrow with PAS on gonio, pigment on ant lens capsule, endorses sx of eye pain and flashing lights in dark room left eye (OS) > right eye (OD), low hyperope May be having intermittent closure Intraocular pressure (IOP) / RTC next av glc laser peripheral iridotomy (LPI) both eyes (OU), RNFL OU documented in this encounter Miscellaneous Notes * Assessment & Plan Note - Eli Brooks MD - 02/07/2024 3:38 PM CDT Associated Problem(s): Anatomical narrow angle, bilateral Narrow with PAS on gonio, pigment on ant lens capsule, endorses sx of eye pain and flashing lights in dark room left eye (OS) > right eye (OD), low hyperope May be having intermittent closure Intraocular pressure (IOP) 08/22 RTC next av glc laser peripheral iridotomy (LPI) both eyes (OU), RNFL OU documented in this encounter Plan of Treatment Not on file documented as of this encounter Visit Diagnoses Diagnosis Anatomical narrow angle, bilateral- Primary documented in this encounter Eye Exam Visual Acuity (Snellen - Linear) Right eye Left eye Dist cc 20/30 20/25 Dist ph cc 20/25 20/20 -2 Correction: Glasses Tonometry (Applanation, 3:36 PM) Right eye Left eye Pressure 12 14 Gonioscopy Right eye Left eye Temporal 2, PAS 2, PAS Nasal 2, PAS 2, PAS Superior 2, PAS 2, PAS Inferior 3 3 Pupils Dark Light Shape React APD Right eye 5.0 4.5 Round Minimal None Left eye 5.0 4.5 Round Minimal None Neuro/Psych Oriented x3: Yes Mood/Affect: Normal Slit Lamp Exam Right eye Left eye Lids/Lashes Normal Normal Conjunctiva/Sclera White and quiet White and lupe et Cornea Clear Clear Anterior Chamber narrow and quiet narrow and lupe et Iris Round and reactive Round and maegan ctive Lens Clear, anterior pigment Clear, a nterior pig Anterior Vitreous lobo neg lobo neg Fundus Exam Right eye Left eye Disc Normal Normal C/D Ratio 0.2 0.2 Care Teams Bullet Charging Machine Operator Relationship Specialty Start Date End Date No, Physician PCP - General 01/09/24 documented as of this encounter
--- OUTSIDE RECORDS SUMMARY | 2024-09-07 05:09 | XMS_ITS | Encounter Summary ---
Author Organization [facility] Address [address] [place] [address] Phone Care Team Providers Care Senior Ui Ux Developer Name Role Phone No, Physician Primary Care Provider [phone] Reason for Visit * Reason Onset Date Comments New Symptoms 04/16/2024 Encounter Details Date Type Department Care Team (Late st Contact Info) Description 04/16/2024 Telephone [facility] Ophthalmology [address] [place] [address] Koffi Colón MD [address] [place], [place] [id number] New Symptoms Social History Tobacco Use Types Packs/Day Years Used Date Smoking Tobacco: Never Comments Unknown Sex and Gender Information Value Date Recorded Sex Assigned at Not on file Legal Sex Female 11:04 AM CDT Gender Identity Not on file Sexual Orientation Not on file documented as of this encounter Miscellaneous Notes * Telephone Encounter - Isadora Pineda COA - 04/17/2024 12:53 PM CDT Helping with this one * Telephone Encounter - Anneliese Dueñas - 04/17/2024 9:42 AM CDT I called and she is still having OS pain and photophobia. did the pred QID OU for4 days. * Telephone Encounter - Pete Gómezah Darshana - 04/17/2024 8:41 AM CDT Pt's spouse Dariusz called in to check status of message below. Dariusz also advised would like to go over medication instructions. Advised office would reach back out to advise. Best contact # [phone] * Telephone Encounter - Mary Cr CNA - 04/16/2024 2:31 PM CDT Pt called stating the she has pain within OS. Pt states that ever since she had laser she been feeling that pain within her eye. Pt is scheduled for 05/29 at [facility] location . Pt is wanting to know what relief is avail for OS . Catalina advise documented in this encounter Plan of Treatment Not on file documented as of this encounter Visit Diagnoses Not on filedocumented in this encounter Care Teams Senior Ui Ux Developer Relationship Specialty Start Date End Date No, Physician PCP - General 01/09/24 documented as of this encounter
--- OUTSIDE RECORDS SUMMARY | 2024-09-07 05:09 | XMS_ITS | Encounter Summary ---
Author Organization [facility] Address [address] [place] [address] Phone Care Team Providers Care National Flatbed Truck Driver Name Role Phone No, Physician Primary Care Provider [phone] Reason for Visit * Reason Onset Date Comments Same-Day Appointment 01/09/2024 Optics Manufacturing Technician Scheduled 01/09/2024 Encounter Details Date Type Department Care Team (Late st Contact Info) Description 01/09/2024 Telephone [facility] Ophthalmology [facility] [place] [address] Merlin Aguilar, OD [address]OLOGY, [address] [phone] Same-Day Appointment; Optics Manufacturing Technician Scheduled Social History Tobacco Use Types Packs/Day Years Used Date Smoking Tobacco: Never Comments Unknown Sex and Gender Information Value Date Recorded Sex Assigned at Not on file Legal Sex Female 11:04 AM CDT Gender Identity Not on file Sexual Orientation Not on file documented as of this encounter Miscellaneous Notes * Telephone Encounter - NavdeepShanthi RMA - 01/09/2024 11:37 AM CDT Appointment Date: 01.09.24 Appointment Location: [facility] Appointment Time: 2:30 Optics Manufacturing Technician Scheduled: Yes Language Requested: Chinese Service Scheduled Through: [facility] Confirmation Number (if Scheduled through [facility]): [id number] Person Spoke with (If Scheduled through [facility] Language Line): N/A Additional Comments: community health planning director may not be in-person, poss over the phone or video, [facility] Services:[phone] * Telephone Encounter - Shanthi Sethi RMA - 01/09/2024 11:32 AM CDT Did Patient Refuse Same Day: No Patient Scheduled: 01.09.24 Provider Scheduled with: Dr Aguilar Frequency: never happened before Onset: about 2 weeks ago, getting worse Location: OU Duration: constant Associated Problems: floaters, spots, headaches, dizziness Relief: motion sickness pills & jaime, minimal relief Quality of Symptoms: floaters Additional Comments: pt needs luggage repairer; community health planning director ordered but may not be [id number] over phone or video, [facility] Services: [phone] documented in this encounter Plan of Treatment Not on file documented as of this encounter Visit Diagnoses Not on filedocumented in this encounter Care Teams National Flatbed Truck Driver Relationship Specialty Start Date End Date No, Physician PCP - General 01/09/24 documented as of this encounter
--- OUTSIDE RECORDS SUMMARY | 2024-09-07 05:09 | XMS_ITS | Patient Health Summary ---
Author Organization [facility] [employer] Address [address] [place] [address] Care Team Providers Care Poultry Hatchery Man Name Role Phone Unavailable Primary Care Provider Unavailabl e Note from [facility],non-owned Affiliates and Associated Physician Practices is amultiple site organization consisting of ambulatory clinics and hospital sitesin [place], [place], [place] and [place]. This disclosure is being madepursuant to the Care Everywhere program and may not contain all information available regarding this patient. Last updated 18.[facility] [employer] Social History Tobacco Use Types Packs/Day Years [...]
--- OUTSIDE RECORDS SUMMARY | 2024-09-07 05:09 | XMS_ITS | Encounter Summary ---
Author Organization [facility] Address [address] [facility] [address] [place] [address] Phone Care Team Providers Care Sales Management Trainee Name Role Phone No, Physician Primary Care Provider Reason for Visit * Reason Onset Date Comments Scheduling Banquet Chef 01/30/2024 Encounter Details Date Type Department Care Team (Late st Contact Info) Description 01/30/2024 Telephone [facility] Ophthalmology [address] [place] [address] Demarco Rubio II, MD [address] [facility] [phone] [address] [place] [address] Scheduling Banquet Chef Social History Tobacco Use Types Packs/Day Years Used Date Smoking Tobacco: Never Comments Unknown Sex and Gender Information Value Date Recorded Sex Assigned at Not on file Legal Sex Female 11:04 AM CDT Gender Identity Not on file Sexual Orientation Not on file documented as of this encounter Miscellaneous Notes * Telephone Encounter - Shanthi Sethi RMA - 01/30/2024 3:25 PM CDT Appointment Date: 02.07.24 Appointment Location: [facility] Appointment Time: 2:20 Banquet Chef Scheduled: Yes Language Requested: Romanian Service Scheduled Through: [facility] Language Line Confirmation Number (if Scheduled through [facility]): n/a Person Spoke with (If Scheduled through [facility] Language Line): [place] Additional Comments: documented in this encounter Plan of Treatment Not on file documented as of this encounter Visit Diagnoses Not on filedocumented in this encounter Care Teams Sales Management Trainee Relationship Specialty Start Date End Date No, Physician PCP - General 01/09/24 documented as of this encounter
== END 2024-09-01 16:20 | disposition home or self-care (01) ==
LOC: ANHED 08-31 06:39 → ANH3MEDSUR 08-31 12:03
PROVIDERS: Nurse Practitioner Family; Surgery; Admitting Provider Internal Medicine; Emergency Provider Emergency Medicine; PCP Physician Assistant; Visit Provider Internal Medicine
PROC: 0FT44ZZ Resection of Gallbladder, Percutaneous Endoscopic Approach (ICD-10-PCS; CPT 47562; principal; 2024-09-01 09:00)
DX: K80.10 Calculus of gallbladder with chronic cholecystitis without obstruction (principal); K82.8 Other specified diseases of gallbladder; F32.A Depression, unspecified; E78.5 Hyperlipidemia, unspecified; R73.9 Hyperglycemia, unspecified; Z79.899 Other long term (current) drug therapy
CPT/HCPCS: 47562; 36415; 74177; 80053; 81003; 82248; 83690; 83735; 84703; 85025; 85027; 85610; 85730; 86850; 86900; 86901; 88304; 96361; 96374; 96375; 96376; 99285; A9270; G0378; J1100; J1171; J2003; J2250; J2270; J2405; J2470; J2704; J2765; J3010; J7030; J7120; Q9967

== ENCOUNTER 2024-09-12 18:38 | Emergency (ER) | payer OTHER, SELFPAY ==
[2024-09-12 18:46] VITALS: BP 136/73; PULSE 95; RESP 14; TEMP 37.2; O2SAT 100
--- NOTE | 2024-09-12 19:22 | ED_ITS ---
HPI - Eye Problem General Chief complaint: Eye Problems Stated complaint: Eyes Irritation Time Seen by Provider: 09/12/24 19:25 Source: patient and RN notes reviewed Mode of arrival: ambulatory Limitations: no limitations History of Present Illness HPI Narrative: 48-year-old female presents with concern for chronic eye issue. Reports she has tobramycin dexamethasone drops prescribed for a recurrent problem with her right eye. Her eye started becoming red again today which she is out of her drops and could not get in her doctor. She denies any vision changes, pain. Reports slight irritation MD chief complaint: eye redness Related Data Home Medications ?Medication ?Instructions ?Recorded ?Confirmed ?Last Taken ?Type nortriptyline 10 mg capsule 10 mg PO DAILY 04/26/22 08/31/24 08/30/24 History Allergies Allergy/AdvReac Type Severity Reaction Status Date / Time No Known Allergies Allergy Unknown Unknown Verified 09/12/24 18:41 Review of Systems Review of Systems: CONSTITUTIONAL: Denies malaise, chills, sweats, or fever. EYES: Denies visual changes. Reports redness, irritation, discharge of the right eye. ENT: Denies rhinorrhea, congestion, sinus pain, otalgia or sore throat. SKIN: Denies rash or itching. NEUROLOGIC: Denies numbness, weakness, or headache. PSYCHIATRIC: Denies anxiety or depression. All systems reviewed & are unremarkable except as noted in HPI and below PMFSH Past Medical History Medical History (Updated 09/12/24 @ 19:30 by Yolanda Pizano NP) Anxiety Hypertension Dyslipidemia Depression Surgical History Surgical History No significant past surgical history Family History Family History Father Alive and well Mother Diabetes mellitus Social History Social History Smoking status: Never smoker Tobacco type: cigarettes Second hand tobacco smoke exposure: No Alcohol intake: never Substance use: never Substance use type: does not use Do You Feel Safe in your Home?: Yes Lack of Transportation: No Lack of Food: Never True Current Housing: I Have Housing Concerned About Future Housing: No Difficulty Paying Gas/Electric Bills: No Difficulty Paying for Meds: No Currently Unemployed: No Education: Decline to Answer Difficulty w/ Childcare or Family Care: No Living arrangements: with family Occupation/Education: occupation Gender identity (if verbalized by the patient): Female Sexual Orientation (if Verbalized by the Patient): Straight or Heterosexual Spiritual care concerns: No Comments At time of signature, agree with nursing past medical, surgical, social and family history. There is no relevant family history pertinent to the presenting complaint Exam Narrative: GENERAL: Well-appearing, well-nourished, and in no acute distress. HEAD: Normocephalic, atraumatic. EYES: PERRLA and EOMI. No nystagmus. Right sclera and conjunctivae injected. Upper and lower eyelid unremarkable, no periorbital edema noted ENT: Nares clear, turbinates pink, no rhinorrhea or epistaxis. Mucous membranes moist. TM pearly cobian with sharp light reflex bilaterally; no tragal tenderness. NECK: Supple. CHEST: No respiratory distress. Speaks in full sentences. HEART: Regular rate and rhythm. SKIN: Warm, dry, no visible rash. NEURO: Alert and oriented x3. PSYCH: Normal mood and affect Course Course Emergency Course: Patient is aware of diagnosis, understands and agrees to treatment plan. Anticipatory guidance given. Patient agrees to follow-up as directed and is aware of reasons to seek care at the emergency department. Portions of this record may have been created with voice recognition software Level of Care: Express Care Visit Vital Signs Vital signs: Vital Signs Temperature 98.9 F 09/12/24 18:46 Pulse Rate 95 09/12/24 18:46 Respiratory Rate 14 09/12/24 18:46 Blood Pressure 136/73 09/12/24 18:46 Pulse Oximetry 100 09/12/24 18:46 Oxygen Delivery Room Air 09/12/24 18:46 Temperature 98.9 F 09/12/24 18:46 Pulse Rate 95 09/12/24 18:46 Respiratory Rate 14 09/12/24 18:46 Blood Pressure 136/73 09/12/24 18:46 Pulse Oximetry 100 09/12/24 18:46 Oxygen Delivery Room Air 09/12/24 18:46 Reviewed. MDM - Eye Problem MDM Narrative Medical decision making narrative: Consideration of the following conditions may be warranted for the presenting problem, they are not final diagnoses: Bacterial conjunctivitis, allergic conjunctivitis, viral conjunctivitis, foreign body, blepharitis, chalazion, hordeolum, corneal abrasion, preseptal cellulitis, orbital cellulitis. No evidence of proptosis, ophthalmoplegia, vision loss, pain with eye movement. Exam findings show no acute concerns or changes; patient is non-toxic appearing and is in no distress. Patient is appropriate for outpatient treatment and follow-up. Critical Care Time Critical Care Time Critical Care Time: No Discharge Plan Discharge Clinical Impression: Medication refill Patient Disposition: Home, Self-Care Condition: Stable Instructions: How to Use Eye Drops (ED) Additional Instructions: Do not touch or rub your eye. Use a warm or cool washcloth on your eye for comfort Use eyedrops as directed Practice good handwashing and hygiene to prevent spread of infection You may take Tylenol or ibuprofen for pain Follow-up with PCP or solar sales energy advisor if condition is not improving in 2-3days. Go to the emergency room if you have pain behind your eye, pressure behind your eye, difficulty seeing, or other severe symptoms Patient Language: [place] Prescriptions: New tobramycin-dexamethasone 0.3-0.1 % drops,suspension 1 drp RIGHT EYE QID Qty: 5 0RF No Action nortriptyline 10 mg capsule 10 mg PO DAILY Follow-up/Referrals: Shayna,MALIA Wetzel [Primary Care Provider] - Time of Disposition: 19:32
== END 2024-09-12 19:45 | disposition home or self-care (01) ==
PROVIDERS: Emergency Provider Nurse Practitioner; PCP Physician Assistant
DX: H57.89 Other specified disorders of eye and adnexa (principal); Z76.0 Encounter for issue of repeat prescription; I10 Essential (primary) hypertension; E78.5 Hyperlipidemia, unspecified; F32.A Depression, unspecified
CPT/HCPCS: 99211; G0463

== ENCOUNTER 2024-12-23 09:12 | Outpatient (CLI) | payer OTHER, SELFPAY ==
--- NOTE | ~2024-12-23 | MM_ITS ---
EXAMINATION: MM screening anthony BI w nicolas HISTORY: Screening TECHNIQUE: Craniocaudal and mediolateral oblique 3-D tomosynthesis images were obtained and synthetic 2-D images were generated. CAD analysis was submitted and interpreted. COMPARISON: No prior mammogram is available for comparison at this institution. BREAST PARENCHYMAL COMPOSITION: Dense: The breasts are heterogeneously dense, which may obscure small masses FINDINGS: There is a periareolar mass of the right breast, anterior third. There are scattered masses located centrally and medially in the left breast, partially obscured by fibroglandular tissue. IMPRESSION: 1. Bilateral breast masses. 2. Additional mammographic views and possible breast ultrasound are recommended. BI-RADS Category 0: Incomplete: Needs additional imaging evaluation. Reviewed, dictated and finalized at location B. IMPRESSION: 1. Bilateral breast masses. 2. Additional mammographic views and possible breast ultrasound are recommended . BI-RADS Category 0: Incomplete: Needs additional imaging evaluation.
--- OUTSIDE RECORDS SUMMARY | 2024-12-23 09:54 | XMS_ITS | Clinical Summary ---
Author Organization [facility] [employer] Address [address] [place] [address] Care Team Providers Care Clinic Office Assistant Name Role Phone Unavailable Primary Care Provider Unavailabl e Source Comments [facility],non-owned Affiliates and Associated Physician Practices is amultiple site organization consisting of ambulatory clinics and hospital sitesin [place], [place], [place] and [place]. This disclosure is being madepursuant to the Care Everywhere program and may not contain all information available regarding this patient. Last updated 18.[facility] [employer] Social History Tobacco Use Types Packs/Day Years Used Date Smoking Tobacco: Never Assessed Comments Unknown Sex and Gender Information Value Date Recorded Sex Assigned at Not on file Legal Sex Female 9:32 AM CDT Gender Identity Not on file Sexual Orientation Not on file Last Filed Vital Signs Vital Sign Reading Time Taken Comments Blood Pressure 124/68 04/11/2019 10:33 AM CDT Pulse 70 04/11/2019 10:33 AM CDT Temperature 37.1 C (98.8 F) 04/11/2019 10:33 AM CDT Respiratory Rate - - Oxygen Saturation 98% [...] of 3 - 19+ 3-dose series) 1996 COVID-19 VACCINE (1 - 2023-2 5 season) 2024 DEPRESSION SCREENING 09/09/2024 INFLUENZA VACCINE (Season Ended) 2025 ZOSTER VACCINE (1 of 2) 2027 HIB VACCINE Aged Out No longer eligi ble based on patient's age to complete this topic HPV VACCINE Aged Out No longer eligi ble based on patient's age to complete this topic MENINGOCOCCAL (Group B) VACC INE SHARED DECISION-MAKING Aged Out No longer eligibl e based on patient's age to complete this topic MENINGOCOCCAL GROUPS A/C/Y/W VACCINE Aged Out No longer eligible b ased on patient's age to complete this topic PNEUMOCOCCAL VACCINE Aged Out No long er eligible based on patient's age to complete this topic Insurance SELF PAY NO INSURANCE Member Subscriber Plan / Payer (Ef fective for All Dates) Name:Dada Overton Member ID:Not on file Relation to Subscriber:Not on file Name:DADA OVERTON Subscriber ID:Not on file (Home) Address: [facility] [address] [place] [address] Payer ID:Not on file Group ID:Not on file Type:Self Pay Address: [facility] [place] [address]
--- OUTSIDE RECORDS SUMMARY | 2024-12-23 09:54 | XMS_ITS | Data Portability ---
Author Organization 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 Plan of Treatment Reminders Order Date Submit Date Provider Last Modified By Organization Details Last Modified Time Details Appointments ANY 15 2024 02:00P M MALIA HOYOS Not available Not available Not available Lab CMP, serum or plasma 2024 025 [facility], [address] [place] [address], [address], [place], [address], 11/27/2024 11:17:19 CBC w/ auto diff 2024 025 [facility], [address] [place] [address], [address], [place], [address], 11/27/2024 11:17:21 lipid panel, serum 2024 025 [facility], [address] [place] [address], [address], [place], [address], 11/27/2024 11:17:18 HbA1c (hemoglob in A1c), blood 2024 025 [facility], [address] [facility], [address], [place], [address], 11/27/2024 11:17:20 CBC w/ auto diff 2023 024 [facility], [address], [address], [place], [address], 12/31/2023 12:12:13 CMP, serum or plasma 2023 024 [facility], [address], [address], [place], [address], 12/31/2023 12:12:11 iron + total iron-bind ing capacity (TIBC), serum 2023 024 [facility], [address], [address], [place], [address], 12/31/2023 12:12:12 HbA1c (hemoglob in A1c), blood 2023 024 [facility], [address], [address], [place], [address], 12/31/2023 12:12:12 TSH + free T4, serum 2023 024 [facility], [address], [address], [place], [address], 12/31/2023 12:12:10 Referral cardiolog ist referral 2022 023 DOTTIE Rios DO, [address], [place], [address], 10/10/2023 10:04:21 Procedures None recorded. Surgeries None recorded. Imaging MAMMO, screening , bilateral [address] (Imaging), [address], [place], [address], 12/23/2024 07:52:30 Medication Orders lisinopri l 10 mg tablet 2023 025 [facility], [address] [facility], [place], [address], 12/02/2024 16:05:01 Patient TargetsNo targets recorded. 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 Referring Physician: Ankita Carranza, Hydrochloric Area Supervisor, Encounter Date: 08/12/2023 Results Created Date Observation Date Name Description Value Unit Range Abnormal Flag Note LastModifiedBy Organization Detail LastModifiedTime 07/09/2007/20/2023 IRON AND TIBC iron bind.cap.(TI BC) 398 ug/dL 250-45 0 Not Available [facility] ([facility]) [address] [facility], [place], [address], 07/20/2023 08:25:43 07/09/20 23 07/20/2023 IRON AND TIBC UIBC 335 ug/dL 131-42 5 Not Available [facility] ([facility]) [address] [facility], [place], [address], 07/20/2023 08:25:43 07/09/20 23 07/20/2023 IRON AND TIBC iron 63 ug/dL 27-159 Not Available [facility] ([facility]) [address] [place], [address], 07/20/2023 08:25:43 07/09/20 23 07/20/2023 IRON AND TIBC iron saturation 16 % 15-55 Not Available [facility] ([facility]) [address] [facility], [place], [address], 07/20/2023 08:25:43 07/09/2007/20/2023 HEMOG LOBIN A1C hemoglobin A1C 6.0 % 4.8-5. 6 above high normal Predi abete s: 5.7 - 6.4 Diabe janice: >6.4 Glyce carolann contr ol for adult s with diabe janice: <7.0 Not Available [facility] ([facility]) [address] [place], [address], 07/20/2023 08:25:43 07/09/2007/20/2023 JENNYFER TIN ferritin 22 NG/mL 15-150 Not Available [facility] ([facility]) [address] [facility], [place], [address], 07/20/2023 08:25:44 07/29/2007/29/2023 COLOG UARD cologuard result reportable Negati ve negati ve normal NEGAT SUZE TEST RESUL T. A negat suze Colog uard resul t indic ates a low likel ihood that a color ectal cance r (CRC) or advan janessa adeno ma (phyllis omato us polyp s with more advan janessa pre-m align ant featu res) is prese nt. The chanc e that a perso n with a negat suze Colog uard test has a color ectal cance r is less than 1 in 1500 (nega tive predi ctive value >99.9 %) or has an advan janessa adeno ma is less than 5.3% (nega tive predi ctive value 94.7% ). These data are based on a prosp ectiv e cross -sect ional study of 10,00 0 indiv idual s at [facility] risk for color ectal cance r who were scree jenn with both Colog uard and colon oscop y. (Gabe Portillo et al, N Engl J Med 2014; 370(1 4):12 86-12 97) The mikaela l value (refe rence range ) for this assay is negat suze. COLOG UARD RE-SC REENI NG RECOM MENDA TION: Perio dic color ectal cance r scree anabell is an impor tant part of preve ntive healt hcare for asymp tomat ic indiv idual s at [facility] risk for color ectal cance r. Follo wing a negat suze Colog uard resul t, the Ameri can Cance r Socie ty and U.S. Multi -Soci ety Task Force scree anabell guide lines recom mend a Colog uard re-sc dov robles inter leonel of 3 years . Refer ences : Ameri can Cance r Socie ty Guide line for Color ectal Cance r Scree anabell: https ://ww w.can cer.o rg/ca ncer/ colon -rect al-ca ncer/ detec tion- diagn osis- stagi ng/ac s-rec ommen datio ns.ht ml.; Fred GABRIEL, Deepak HERNANDEZ, Prudence NYE, Color ectal Cance r Scree anabell: Recom menda tions for Physi cians and Patie nts from the U.S. Multi -Soci ety Task Force on Color ectal Cance r Scree anabell , Am Darrion alexandernte rolog y 2017; 112:1 016-1 030. TEST DESCR IPTIO N: Summit View site algor ithmi c corbin sis of stool DNA-b oliva brownlee with hemog lobin immun oassa y. Quant itati ve value s of indiv idual bioma rkers are not repor table and are not assoc iated with indiv idual bioma rker resul t refer ence range s. Colog uard is inten ded for color ectal cance r scree anabell of adult s of eithe r sex, 45 years or older , who are at [facility] for color ectal cance r (CRC) . Colog uard has been appro jerome for use by the U.S. FDA. The perfo rmanc e of Colog uard was estab lishe d in a cross secti onal study of [facility] adult s aged 50-84 . Colog uard perfo rmanc e in patie nts ages 45 to 49 years was estim ated by sub-g roup corbin sis of near- age group s. Colon oscop ies perfo rmed for a posit suze resul t may find as the most clini mia signi fican t lesio n: color ectal cance r [4.0% ], advan janessa adeno ma (incl uding sessi le amparo alejandrina polyp s great er than or equal to 1cm diame ter) [20%] or non- advan janessa adeno ma [31%] ; or no color ectal neopl nasrin [45%] . These estim ates are deriv ed from a prosp ectiv e cross -sect ional scree anabell study of 0 indiv idual s at [facility] risk for color ectal cance r who were scree jenn with both Colog uard and colon oscop y. (Gabe Portillo et al, N Engl J Med 2014; 370(1 4):12 86-12 97.) Colog uard may produ ce a false negat suze or false posit suze resul t (no color ectal cance r or preca ncero us polyp prese nt at colon oscop y follo w up). A negat suze Colog uard test resul t does not guara ntee the absen ce of CRC or advan janessa adeno ma (pre- cance r). The curre nt Colog uard scree anabell inter leonel is every 3 years . (Amer ican Cance r Socie ty and U.S. Multi -Soci ety Task Force ). Colog uard perfo rmanc e data in a 0 patie nt pivot al study using colon oscop y as the refer ence metho d can be acces sed at the follo wing locat ion: www.e xactl abs.c om/re singh . Addit ional descr iptio n of the Colog uard test proce ss, warni ngs and preca ution s can be found at www.c chad davidsond.c om. Not Available [facility] (Cologuard Orders Only) [address], [place], [address], 08/08/2023 10:50:27 12/30/19 24 12/31/2023 TSH+F REE T4 TSH 3.370 uIU/m L 0.450- 4.500 Not Available [facility] ([facility]) [address] [facility] [place], [address], 12/31/2023 12:12:10 12/30/19 24 12/31/2023 TSH+F REE T4 T4,free(dire ct) 1.02 NG/dL 0.82-1 .77 Not Available [facility] ([facility]) [address] [place], [address], 12/31/2023 12:12:10 12/30/19 24 12/31/2023 COMP. METAB OLIC PANEL (14) glucose 115 mg/dL 70-99 above high normal Not Available [facility] ([facility]) [address] [facility], [place], [address], 12/31/2023 12:12:11 12/30/19 24 12/31/2023 COMP. METAB OLIC PANEL (14) BUN 14 mg/dL 6-24 Not Available [facility] ([facility]) [address] [place], [address], 12/31/2023 12:12:11 12/30/19 24 12/31/2023 COMP. METAB OLIC PANEL (14) creatinine 0.68 mg/dL 0.57-1 .00 Not Available [facility] ([facility]) [address] [place], [address], 12/31/2023 12:12:11 12/30/19 24 12/31/2023 COMP. METAB OLIC PANEL (14) eGFR 109 mL/mi n/1.7 3 >59 Not Available [facility] ([facility]) [address] [place], [address], 12/31/2023 12:12:11 12/30/19 24 12/31/2023 COMP. METAB OLIC PANEL (14) BUN/creatini ne ratio 21 9-23 Not Available [facility] ([facility]) [address] [facility], [place], [address], 12/31/2023 12:12:11 12/30/19 24 12/31/2023 COMP. METAB OLIC PANEL (14) sodium 142 mmol/ L 134-14 4 Not Available [facility] ([facility]) [address] [place], [address], 12/31/2023 12:12:11 12/30/19 24 12/31/2023 COMP. METAB OLIC PANEL (14) potassium 4.4 mmol/ L 3.5-5. 2 Not Available [facility] ([facility]) [address] [place], [address], 12/31/2023 12:12:11 12/30/19 24 12/31/2023 COMP. METAB OLIC PANEL (14) chloride 106 mmol/ L 96-106 Not Available [facility] ([facility]) [address], [place], [address], 12/31/2023 12:12:11 12/30/19 24 12/31/2023 COMP. METAB OLIC PANEL (14) carbon dioxide, total 23 mmol/ L 20-29 Not Available [facility] ([facility]) [address] [place], [address], 12/31/2023 12:12:11 12/30/19 24 12/31/2023 COMP. METAB OLIC PANEL (14) calcium 9.5 mg/dL 8.7-10 .2 Not Available [facility] ([facility]) [address] [place], [address], 12/31/2023 12:12:11 12/30/19 24 12/31/2023 COMP. METAB OLIC PANEL (14) protein, total 7.2 g/dL 6.0-8. 5 Not Available [facility] ([facility]) [address] [facility] [place], [address], 12/31/2023 12:12:11 12/30/19 24 12/31/2023 COMP. METAB OLIC PANEL (14) albumin 4.6 g/dL 3.9-4. 9 Not Available [facility] ([facility]) [address] [facility], [place], [address], 12/31/2023 12:12:11 12/30/19 24 12/31/2023 COMP. METAB OLIC PANEL (14) globulin, total 2.6 g/dL 1.5-4. 5 Not Available [facility] ([facility]) [address] [facility], [place], [address], 12/31/2023 12:12:11 12/30/19 24 12/31/2023 COMP. METAB OLIC PANEL (14) A/G ratio 1.8 1.2-2. 2 Not Available [facility] ([facility]) [address] [facility], [place], [address], 12/31/2023 12:12:11 12/30/19 24 12/31/2023 COMP. METAB OLIC PANEL (14) bilirubin, total 0.3 mg/dL 0.0-1. 2 Not Available [facility] ([facility]) [address] [facility], [place], [address], 12/31/2023 12:12:11 12/30/19 24 12/31/2023 COMP. METAB OLIC PANEL (14) alkaline phosphatase 84 IU/L 44-121 Not Available [facility] ([facility]) [address] [facility], [place], [address], 12/31/2023 12:12:11 12/30/19 24 12/31/2023 COMP. METAB OLIC PANEL (14) AST (SGOT) 27 IU/L 0-40 Not Available [facility] ([facility]) [address] [facility], [place], [address], 12/31/2023 12:12:11 12/30/19 24 12/31/2023 COMP. METAB OLIC PANEL (14) ALT (SGPT) 17 IU/L 0-32 Not Available [facility] ([facility]) [address] [facility], [place], [address], 12/31/2023 12:12:11 12/30/19 24 12/31/2023 IRON AND TIBC iron bind.cap.(TI BC) 397 ug/dL 250-45 0 Not Available [facility] ([facility]) [address] [facility], [place], [address], 12/31/2023 12:12:12 12/30/19 24 12/31/2023 IRON AND TIBC UIBC 328 ug/dL 131-42 5 Not Available [facility] ([facility]) [address] [facility], [place], [address], 12/31/2023 12:12:12 12/30/19 24 12/31/2023 IRON AND TIBC iron 69 ug/dL 27-159 Not Available [facility] ([facility]) [address] [facility], [place], [address], 12/31/2023 12:12:12 12/30/19 24 12/31/2023 IRON AND TIBC iron saturation 17 % 15-55 Not Available [facility] ([facility]) [address] [place], [address], 12/31/2023 12:12:12 12/30/19 24 12/31/2023 HEMOG LOBIN A1C hemoglobin A1C 5.9 % 4.8-5. 6 above high normal Predi abete s: 5.7 - 6.4 Diabe janice: >6.4 Glyce carolann contr ol for adult s with diabe janice: <7.0 Not Available [facility] ([facility]) [address] [place], [address], 12/31/2023 12:12:12 12/30/19 24 12/31/2023 CBC WITH DIFFE RENTI AL/PL ATELE T WBC 6.3 x10e3 /uL 3.4-10 .8 Not Available [facility] ([facility]) [address] [facility], [place], [address], 12/31/2023 12:12:13 12/30/19 24 12/31/2023 CBC WITH DIFFE RENTI AL/PL ATELE T RBC 4.52 x10e6 /uL 3.77-5 .28 Not Available [facility] ([facility]) [address] [facility], [place], [address], 12/31/2023 12:12:13 12/30/19 24 12/31/2023 CBC WITH DIFFE RENTI AL/PL ATELE T hemoglobin 13.3 g/dL 11.1-1 5.9 Not Available [facility] ([facility]) [address] [facility], [place], [address], 12/31/2023 12:12:13 12/30/19 24 12/31/2023 CBC WITH DIFFE RENTI AL/PL ATELE T hematocrit 40.9 % 34.0-4 6.6 Not Available [facility] ([facility]) [address] [place], [address], 12/31/2023 12:12:13 12/30/19 24 12/31/2023 CBC WITH DIFFE RENTI AL/PL ATELE T MCV 91 fL 79-97 Not Available [facility] ([facility]) [address] [place], [address], 12/31/2023 12:12:13 12/30/19 24 12/31/2023 CBC WITH DIFFE RENTI AL/PL ATELE T MCH 29.4 pg 26.6-3 3.0 Not Available [facility] ([facility]) [address] [place], [address], 12/31/2023 12:12:13 12/30/19 24 12/31/2023 CBC WITH DIFFE RENTI AL/PL ATELE T MCHC 32.5 g/dL 31.5-3 5.7 Not Available [facility] ([facility]) [address] [facility], [place], [address], 12/31/2023 12:12:13 12/30/19 24 12/31/2023 CBC WITH DIFFE RENTI AL/PL ATELE T RDW 13.9 % 11.7-1 5.4 Not Available [facility] ([facility]) [address] [facility], [place], [address], 12/31/2023 12:12:13 12/30/19 24 12/31/2023 CBC WITH DIFFE RENTI AL/PL ATELE T platelets 206 x10e3 /uL 150-45 0 Not Available [facility] ([facility]) [address] [facility], [place], [address], 12/31/2023 12:12:13 12/30/19 24 12/31/2023 CBC WITH DIFFE RENTI AL/PL ATELE T neutrophils 58 % notest ab. Not Available [facility] ([facility]) [address] [facility], [place], [address], 12/31/2023 12:12:13 12/30/19 24 12/31/2023 CBC WITH DIFFE RENTI AL/PL ATELE T lymphs 33 % notest ab. Not Available [facility] ([facility]) [address] [facility], [place], [address], 12/31/2023 12:12:13 12/30/19 24 12/31/2023 CBC WITH DIFFE RENTI AL/PL ATELE T monocytes 6 % notest ab. Not Available [facility] ([facility]) [address] [facility], [place], [address], 12/31/2023 12:12:13 12/30/19 24 12/31/2023 CBC WITH DIFFE RENTI AL/PL ATELE T eos 2 % notest ab. Not Available [facility] ([facility]) [address] [facility], [place], [address], 12/31/2023 12:12:13 12/30/19 24 12/31/2023 CBC WITH DIFFE RENTI AL/PL ATELE T basos 1 % notest ab. Not Available [facility] ([facility]) [address] [facility], [place], [address], 12/31/2023 12:12:13 12/30/19 24 12/31/2023 CBC WITH DIFFE RENTI AL/PL ATELE T neutrophils (absolute) 3.6 x10e3 /uL 1.4-7. 0 Not Available [facility] ([facility]) [address] [facility], [place], [address], 12/31/2023 12:12:13 12/30/19 24 12/31/2023 CBC WITH DIFFE RENTI AL/PL ATELE T lymphs (absolute) 2.1 x10e3 /uL 0.7-3. 1 Not Available [facility] ([facility]) [address] [facility], [place], [address], 12/31/2023 12:12:13 12/30/19 24 12/31/2023 CBC WITH DIFFE RENTI AL/PL ATELE T monocytes(ab solute) 0.4 x10e3 /uL 0.1-0. 9 Not Available [facility] ([facility]) [address] [facility], [place], [address], 12/31/2023 12:12:13 12/30/19 24 12/31/2023 CBC WITH DIFFE RENTI AL/PL ATELE T eos (absolute) 0.1 x10e3 /uL 0.0-0. 4 Not Available [facility] ([facility]) [address] [facility], [place], [address], 12/31/2023 12:12:13 12/30/19 24 12/31/2023 CBC WITH DIFFE RENTI AL/PL ATELE T baso (absolute) 0.1 x10e3 /uL 0.0-0. 2 Not Available [facility] ([facility]) [address] [facility], [place], [address], 12/31/2023 12:12:13 12/30/19 24 12/31/2023 CBC WITH DIFFE RENTI AL/PL ATELE T immature granulocytes 0 % notest ab. Not Available [facility] ([facility]) [address] [facility], [place], [address], 12/31/2023 12:12:13 12/30/19 24 12/31/2023 CBC WITH DIFFE RENTI AL/PL ATELE T immature grans (abs) 0.0 x10e3 /uL 0.0-0. 1 Not Available [facility] ([facility]) [address] [facility], [place], [address], 12/31/2023 12:12:13 09/11/19 25 09/12/2024 MICRO SCOPI C EXAMI NATIO N WBC >30 /hpf 0-5 abnormal Not Available [facility] ([facility]) [address] [facility], [place], [address], 09/12/2024 07:14:17 09/11/19 25 09/12/2024 MICRO SCOPI C EXAMI NATIO N RBC None seen /hpf 0-2 Not Available [facility] ([facility]) [address] [facility], [place], [address], 09/12/2024 07:14:17 09/11/19 25 09/12/2024 MICRO SCOPI C EXAMI NATIO N epithelial cells (non renal) 0-10 /hpf 0-10 Not Available [facility] ([facility]) [address] [facility], [place], [address], 09/12/2024 07:14:17 09/11/19 25 09/12/2024 MICRO SCOPI C EXAMI NATIO N casts None seen /lpf nonese en Not Available [facility] ([facility]) [address] [facility], [place], [address], 09/12/2024 07:14:17 09/11/1909/12/2024 MICRO SCOPI C EXAMI NATIO N bacteria Few nonese en/few Not Available [facility] ([facility]) [address] [facility], [place], [address], 09/12/2024 07:14:17 09/11/1909/12/2024 URINA LYSIS , COMPL ETE specific gravity <=1.00 5 1.005- 1.030 abnormal Not Available [facility] ([facility]) [address] [facility], [place], [address], 09/12/2024 07:14:18 09/11/1909/12/2024 URINA LYSIS , COMPL ETE pH 7.0 5.0-7. 5 Not Available [facility] ([facility]) [address] [facility], [place], [address], 09/12/2024 07:14:18 09/11/1909/12/2024 URINA LYSIS , COMPL ETE urine-color YELLOW yellow Not Available [facility] ([facility]) [address] [facility], [place], [address], 09/12/2024 07:14:18 09/11/1909/12/2024 URINA LYSIS , COMPL ETE appearance CLEAR clear Not Available [facility] ([facility]) [address] [facility], [place], [address], 09/12/2024 07:14:18 09/11/1909/12/2024 URINA LYSIS , COMPL ETE WBC esterase 3+ negati ve abnormal Not Available [facility] ([facility]) [address] [facility], [place], [address], 09/12/2024 07:14:18 09/11/1909/12/2024 URINA LYSIS , COMPL ETE protein NEGATI VE negati ve/tra ce Not Available [facility] ([facility]) [address] [place], [address], 09/12/2024 07:14:18 09/11/1909/12/2024 URINA LYSIS , COMPL ETE glucose NEGATI VE negati ve Not Available [facility] ([facility]) [address] [place], [address], 09/12/2024 07:14:18 09/11/19 25 09/12/2024 URINA LYSIS , COMPL ETE ketones NEGATI VE negati ve Not Available [facility] ([facility]) [address] [place], [address], 09/12/2024 07:14:18 09/11/19 25 09/12/2024 URINA LYSIS , COMPL ETE occult blood TRACE negati ve abnormal Not Available [facility] ([facility]) [address] [place], [address], 09/12/2024 07:14:18 09/11/1909/12/2024 URINA LYSIS , COMPL ETE bilirubin NEGATI VE negati ve Not Available [facility] ([facility]) [address] [place], [address], 09/12/2024 07:14:18 09/11/1909/12/2024 URINA LYSIS , COMPL ETE urobilinogen ,semi-qn 0.2 mg/dL 0.2-1. 0 Not Available [facility] ([facility]) [address] [place], [address], 09/12/2024 07:14:18 09/11/19 25 09/12/2024 URINA LYSIS , COMPL ETE nitrite, urine NEGATI VE negati ve Not Available [facility] ([facility]) [address] [place], [address], 09/12/2024 07:14:18 09/11/19 25 09/12/2024 URINA LYSIS , COMPL ETE microscopic examination SEE BELOW: Micro scopi c was indic ated and was perfo rmed. Not Available [facility] ([facility]) [address] [place], [address], 09/12/2024 07:14:18 11/27/19 25 11/27/2024 LIPID PANEL cholesterol, total 222 mg/dL 100-19 9 above high normal Not Available [facility] ([facility]) [address] [place], [address], 11/27/2024 11:17:18 11/27/19 25 11/27/2024 LIPID PANEL triglyceride s 80 mg/dL 0-149 Not Available [facility] ([facility]) [address] [place], [address], 11/27/2024 11:17:18 11/27/19 25 11/27/2024 LIPID PANEL HDL cholesterol 58 mg/dL >39 Not Available [facility] ([facility]) [address] [place], [address], 11/27/2024 11:17:18 11/27/19 25 11/27/2024 LIPID PANEL VLDL cholesterol diego 14 mg/dL 5-40 Not Available [facility] ([facility]) [address] [place], [address], 11/27/2024 11:17:18 11/27/19 25 11/27/2024 LIPID PANEL LDL chol calc ([facility]) 150 mg/dL 0-99 above high normal Not Available [facility] ([facility]) [address] [place], [address], 11/27/2024 11:17:18 11/27/19 25 11/27/2024 COMP. METAB OLIC PANEL (14) glucose 93 mg/dL 70-99 Not Available [facility] ([facility]) [address] [facility] [place], [address], 11/27/2024 11:17:19 11/27/19 25 11/27/2024 COMP. METAB OLIC PANEL (14) BUN 15 mg/dL 6-24 Not Available [facility] ([facility]) [address] [facility] [place], [address], 11/27/2024 11:17:19 11/27/19 25 11/27/2024 COMP. METAB OLIC PANEL (14) creatinine 0.80 mg/dL 0.57-1 .00 Not Available [facility] ([facility]) [address] [facility] [place], [address], 11/27/2024 11:17:19 11/27/19 25 11/27/2024 COMP. METAB OLIC PANEL (14) eGFR 91 mL/mi n/1.7 3 >59 Not Available [facility] ([facility]) [address] [facility] [place], [address], 11/27/2024 11:17:19 11/27/19 25 11/27/2024 COMP. METAB OLIC PANEL (14) BUN/creatini ne ratio 19 9-23 Not Available [facility] ([facility]) [address] [facility] [place], [address], 11/27/2024 11:17:19 11/27/19 25 11/27/2024 COMP. METAB OLIC PANEL (14) sodium 140 mmol/ L 134-14 4 Not Available [facility] ([facility]) [address] [facility] [place], [address], 11/27/2024 11:17:19 11/27/19 25 11/27/2024 COMP. METAB OLIC PANEL (14) potassium 4.5 mmol/ L 3.5-5. 2 Not Available [facility] ([facility]) [address] [facility] [place], [address], 11/27/2024 11:17:19 11/27/19 25 11/27/2024 COMP. METAB OLIC PANEL (14) chloride 104 mmol/ L 96-106 Not Available [facility] ([facility]) [address] [facility] [address], [place], [address], 11/27/2024 11:17:19 11/27/19 25 11/27/2024 COMP. METAB OLIC PANEL (14) carbon dioxide, total 19 mmol/ L 20-29 below low normal Not Available [facility] ([facility]) [address] [facility] [address], [place], [address], 11/27/2024 11:17:19 11/27/19 25 11/27/2024 COMP. METAB OLIC PANEL (14) calcium 9.4 mg/dL 8.7-10 .2 Not Available [facility] ([facility]) [address] [facility], [place], [address], 11/27/2024 11:17:19 11/27/19 25 11/27/2024 COMP. METAB OLIC PANEL (14) protein, total 6.9 g/dL 6.0-8. 5 Not Available [facility] ([facility]) [address] [place], [address], 11/27/2024 11:17:19 11/27/19 25 11/27/2024 COMP. METAB OLIC PANEL (14) albumin 4.6 g/dL 3.9-4. 9 Not Available [facility] ([facility]) [address] [place], [address], 11/27/2024 11:17:19 11/27/19 25 11/27/2024 COMP. METAB OLIC PANEL (14) globulin, total 2.3 g/dL 1.5-4. 5 Not Available [facility] ([facility]) [address] [place], [address], 11/27/2024 11:17:19 11/27/19 25 11/27/2024 COMP. METAB OLIC PANEL (14) bilirubin, total 0.5 mg/dL 0.0-1. 2 Not Available [facility] ([facility]) [address] [place], [address], 11/27/2024 11:17:19 11/27/19 25 11/27/2024 COMP. METAB OLIC PANEL (14) alkaline phosphatase 88 IU/L 44-121 Not Available [facility] ([facility]) [address] [place], [address], 11/27/2024 11:17:19 11/27/19 25 11/27/2024 COMP. METAB OLIC PANEL (14) AST (SGOT) 29 IU/L 0-40 Not Available [facility] ([facility]) [address] [place], [address], 11/27/2024 11:17:19 11/27/19 25 11/27/2024 COMP. METAB OLIC PANEL (14) ALT (SGPT) 18 IU/L 0-32 Not Available [facility] ([facility]) [address] [place], [address], 11/27/2024 11:17:19 11/27/19 25 11/27/2024 HEMOG LOBIN A1C hemoglobin A1C 5.8 % 4.8-5. 6 above high normal Predi abete s: 5.7 - 6.4 Diabe janice: >6.4 Glyce carolann contr ol for adult s with diabe janice: <7.0 Not Available [facility] ([facility]) [address] [place], [address], 11/27/2024 11:17:20 11/27/19 25 11/27/2024 CBC WITH DIFFE RENTI AL/PL ATELE T WBC 5.4 x10e3 /uL 3.4-10 .8 Not Available [facility] ([facility]) [address] [place], [address], 11/27/2024 11:17:21 11/27/19 25 11/27/2024 CBC WITH DIFFE RENTI AL/PL ATELE T RBC 4.04 x10e6 /uL 3.77-5 .28 Not Available [facility] ([facility]) [address] [place], [address], 11/27/2024 11:17:21 11/27/19 25 11/27/2024 CBC WITH DIFFE RENTI AL/PL ATELE T hemoglobin 12.3 g/dL 11.1-1 5.9 Not Available [facility] ([facility]) [address] [place], [address], 11/27/2024 11:17:21 11/27/19 25 11/27/2024 CBC WITH DIFFE RENTI AL/PL ATELE T hematocrit 36.4 % 34.0-4 6.6 Not Available [facility] ([facility]) [address] [place], [address], 11/27/2024 11:17:21 11/27/19 25 11/27/2024 CBC WITH DIFFE RENTI AL/PL ATELE T MCV 90 fL 79-97 Not Available [facility] ([facility]) [address] [place], [address], 11/27/2024 11:17:21 11/27/19 25 11/27/2024 CBC WITH DIFFE RENTI AL/PL ATELE T MCH 30.4 pg 26.6-3 3.0 Not Available [facility] ([facility]) [address] [place], [address], 11/27/2024 11:17:21 11/27/19 25 11/27/2024 CBC WITH DIFFE RENTI AL/PL ATELE T MCHC 33.8 g/dL 31.5-3 5.7 Not Available [facility] ([facility]) [address] [place], [address], 11/27/2024 11:17:21 11/27/19 25 11/27/2024 CBC WITH DIFFE RENTI AL/PL ATELE T RDW 14.1 % 11.7-1 5.4 Not Available [facility] ([facility]) [address] [facility], [place], [address], 11/27/2024 11:17:21 11/27/19 25 11/27/2024 CBC WITH DIFFE RENTI AL/PL ATELE T platelets 236 x10e3 /uL 150-45 0 Not Available [facility] ([facility]) [address] [facility], [place], [address], 11/27/2024 11:17:21 11/27/19 25 11/27/2024 CBC WITH DIFFE RENTI AL/PL ATELE T neutrophils 53 % notest ab. Not Available [facility] ([facility]) [address] [facility], [place], [address], 11/27/2024 11:17:21 11/27/19 25 11/27/2024 CBC WITH DIFFE RENTI AL/PL ATELE T lymphs 38 % notest ab. Not Available [facility] ([facility]) [address] [facility], [place], [address], 11/27/2024 11:17:21 11/27/19 25 11/27/2024 CBC WITH DIFFE RENTI AL/PL ATELE T monocytes 6 % notest ab. Not Available [facility] ([facility]) [address] [facility], [place], [address], 11/27/2024 11:17:21 11/27/19 25 11/27/2024 CBC WITH DIFFE RENTI AL/PL ATELE T eos 2 % notest ab. Not Available [facility] ([facility]) [address] [facility], [place], [address], 11/27/2024 11:17:21 11/27/19 25 11/27/2024 CBC WITH DIFFE RENTI AL/PL ATELE T basos 1 % notest ab. Not Available [facility] ([facility]) [address] [facility], [place], [address], 11/27/2024 11:17:21 11/27/19 25 11/27/2024 CBC WITH DIFFE RENTI AL/PL ATELE T neutrophils (absolute) 2.9 x10e3 /uL 1.4-7. 0 Not Available [facility] ([facility]) [address] [facility], [place], [address], 11/27/2024 11:17:21 11/27/19 25 11/27/2024 CBC WITH DIFFE RENTI AL/PL ATELE T lymphs (absolute) 2.1 x10e3 /uL 0.7-3. 1 Not Available [facility] ([facility]) [address] [place], [address], 11/27/2024 11:17:21 11/27/19 25 11/27/2024 CBC WITH DIFFE RENTI AL/PL ATELE T monocytes(ab solute) 0.4 x10e3 /uL 0.1-0. 9 Not Available [facility] ([facility]) [address] [place], [address], 11/27/2024 11:17:21 11/27/19 25 11/27/2024 CBC WITH DIFFE RENTI AL/PL ATELE T eos (absolute) 0.1 x10e3 /uL 0.0-0. 4 Not Available [facility] ([facility]) [address] [place], [address], 11/27/2024 11:17:21 11/27/19 25 11/27/2024 CBC WITH DIFFE RENTI AL/PL ATELE T baso (absolute) 0.0 x10e3 /uL 0.0-0. 2 Not Available [facility] ([facility]) [address] [place], [address], 11/27/2024 11:17:21 11/27/19 25 11/27/2024 CBC WITH DIFFE RENTI AL/PL ATELE T immature granulocytes 0 % notest ab. Not Available [facility] ([facility]) [address] [facility], [place], [address], 11/27/2024 11:17:21 11/27/19 25 11/27/2024 CBC WITH DIFFE RENTI AL/PL ATELE T immature grans (abs) 0.0 x10e3 /uL 0.0-0. 1 Not Available [facility] ([facility]) [address] [facility], [place], [address], 11/27/2024 11:17:21 11/04/19 24 11/04/2023 exerc ise stres s test No observ ation record ed. [address], [address], 11/13/2023 10:39:43 08/24/20 24 08/24/2024 US, ayana ladde r No observ ation record ed. [address] [address], [place], [address], 08/25/2024 15:36:53 08/24/20 24 08/24/2024 XR, abdom en No observ ation record ed. [address], [address], 08/25/2024 15:37:19 08/31/20 24 08/31/2024 CT, abdom en + pelvi s, w/ contr ast No observ ation record ed. [address], [address], 08/31/2024 13:47:22 Result Notes None recorded. Problems Name Problem SNOMED Code Status Onset Date Resolution Date Notes Provider Name and Address Organization Details Recorded Time Fibrocystic disease of breast 38292540 Active 2018 AILEEN Ferreira Attn: Accountshabana g,[address], [place], [address], [place] [facility] 9 16:11:35 History of anemia 068560047 Active 2018 Farida Blanton [facility] Attn: Accountshaabna g,[address], [place], [address], [place] [facility] 9 16:12:01 Injury of head 67071009 Active 2022 MALIA HOYOS Attn: Accountin g,[address], [place], [address], [place] [facility] 3 12:53:34 Low back pain 890759152 Active 2022 MALIA HOYOS Attn: Accountin g,[address] [facility], [place], [address], [place] [facility] 3 14:09:03 Prediabetes 549904542 Active 2022 MALIA HOYOS Attn: Accountin g,[address] [facility], [place], [address] [facility] 3 08:41:23 Hyperlipide derick 91388575 Active 2022 MALIA HOYOS Attn: Accountin g,[address] [facility], [place], [address], [place] [facility] 3 08:41:24 Iron deficiency anemia 20978032 Active 2022 MALIA HOYOS Attn: Accountin g,[address] [facility], [place], [address] [facility] 3 08:41:25 Essential hypertensio n 38445225 Active 2022 MALIA HOYOS Attn: Accountin g,[address] [facility], [place], [address] [facility] 3 08:24:43 Dizziness 677664833 Active 2023 MALIA HOYOS Attn: Dee miguel,[address], [place], [address], [place] 4 18:04:11 Anxiety 80859900 Completed 07/23/2019 Alba Sesay RN null, [place] 9 14:41:03 Allergy Completed 07/23/2019 Alba Sesay RN null, [place] 9 14:41:07 Mass of neck 217405250 Completed 07/23/2019 Alba Sesay RN [place], [place] 9 14:40:59 Pruritus of vagina 14272734 Completed 03/24/2018 DELMIS Sanches[place] 8 12:36:44 Irregular periods 55920274 Completed 03/24/2018 DELMIS Sanches[place] 12:36:50 Increased frequency of urination 548715185 Completed 03/24/2018 Alba Sesay RN null, [place] 8 12:36:32 Problem Notes None recorded. Procedures Surgical History Date Name Laterality Status Provider Name and Address Organization Details Recorded Time 08/09/20 24 Removal of gallbladder completed Yoko Silvestre [place] 11/25/2024 16:24:51 09/28/19 20 Date of Last Mammogram completed Alba Sesay RN [place] 10/06/2019 14:44:01 05/09/20 17 Date of Last Pap Smear completed Karina Mathews [place] 07/23/2019 14:27:35 Imaging Results Imaging Date Name Status LastModified by [facility] Details LastModified Time 11/04/2023 exercise stress test completed [id number], [address], 11/13/2023 10:39:43 08/24/2024 US, gallbladder completed [email or web address], [address], 08/25/2024 15:36:53 08/24/2024 XR, abdomen completed [facility] [address], [place], [address], 08/25/2024 15:37:19 08/31/2024 CT, abdomen + pelvis, w/ contrast completed [email or web address] [facility] [address], [place], [address], 08/31/2024 13:47:22 Procedure Notes None recorded. Medical Equipment None Reported. Allergies No known drug allergies Medications Name Sig Start Date Stop Date Status Note LastModified by Organization Details LastModified Time amoxicillin 500 mg capsule 12/20 completed Not Available Not Available Not Available Augmentin 875 mg-125 mg tablet Take 1 tablet every 12 hours by oral route. 07/23 completed Not Available Not Available Not Available cetirizine 10 mg tablet Take 1 tablet every day by oral route. 12/20 completed Not Available Not Available Not Available azithromyci n 250 mg tablet TAKE 2 TABLETS BY MOUTH ON DAY 1 AND THEN TAKE 1 TABLET BY MOUTH ONCE A DAY ON DAY 2 THROUGH DAY 5 04/10 completed Not Available Not Available Not Available ibuprofen 800 mg tablet TAKE 1 TABLET BY MOUTH EVERY 6 HOURS NEEDED FOR PAIN 11/25 completed Not Available Not Available Not Available hydrocodone 5 mg-acetamin ophen 325 mg tablet TAKE 1 TABLET BY MOUTH EVERY 4 TO 6 HOURS NEEDED FOR PAIN 09/15 completed Not Available Not Available Not Available prednisone 20 mg tablet TAKE 2 TABLETS BY MOUTH ONCE DAILY FOR 5 DAYS 01/10 completed Not Available Not Available Not Available amoxicillin 500 mg tablet TAKE 1 TABLET BY MOUTH THREE TIMES DAILY FOR 7 DAYS 12/29 completed Not Available Not Available Not Available amoxicillin 875 mg tablet TAKE 1 TABLET BY MOUTH TWICE DAILY UNTIL GONE 07/30 completed Not Available Not Available Not Available prednisolon e acetate 1 % eye drops,suspe nsion INSTILL 1 DROP INTO EACH EYE 4 TIMES DAILY FOR 4 DAYS 11/25 completed Not Available Not Available Not Available meclizine 25 mg tablet Take 1 tablet 3 times a day by oral route. 07/23 completed Not Available Not Available Not Available benzonatate 100 mg capsule TAKE 1 CAPSULE BY MOUTH THREE TIMES DAILY FOR 10 DAYS 12/20 completed Not Available Not Available Not Available econazole nitrate 1 % topical cream APPLY TO THE AFFECTED AND SURROUNDI NG AREAS OF SKIN ONCE DAILY 02/13 completed Not Available Not Available Not Available pantoprazol e 40 mg tablet,shelly yed release TAKE 1 TABLET BY MOUTH ONCE DAILY 4 TIMES A WEEK TAKE 30 MINUTES BEFORE DINNER 12/20 completed Not Available Not Available Not Available nortriptyli ne 10 mg capsule TAKE 1 CAPSULE BY MOUTH ONCE DAILY AT NIGHT active Not Available Not Available No t Available oseltamivir 75 mg capsule TAKE 1 CAPSULE BY MOUTH TWICE DAILY FOR 5 DAYS 12/20 completed Not Available Not Available Not Available buspirone 10 mg tablet Take 1 tablet 3 times a day by oral route as needed. active Not Available Not Available No t Available lisinopril 10 mg tablet Take 1 tablet every day by oral route for 30 days. 12/02 completed Not Available Not Available Not Available losartan 25 mg tablet TAKE 1 TABLET BY MOUTH ONCE DAILY IN THE MORNING 08/22 completed Not Available Not Available Not Available docusate sodium 100 mg capsule TAKE 1 CAPSULE BY MOUTH TWICE DAILY 11/25 completed Not Available Not Available Not Available omeprazole 20 mg capsule,del ayed release Take 1 capsule every day by oral route. 12/20 completed Not Available Not Available Not Available lisinopril 5 mg tablet TAKE 1 TABLET BY MOUTH ONCE DAILY FOR 90 DAYS active Not Available Not Available No t Available methylpredn isolone 4 mg tablets in a dose pack TAKE BY MOUTH DIRECTED ON INSIDE OF PACKAGE 12/29 completed Not Available Not Available Not Available albuterol sulfate HFA 90 mcg/actuati on aerosol inhaler INHALE 1 TO 2 PUFFS BY MOUTH EVERY 4 HOURS NEEDED FOR WHEEZING 12/20 completed Not Available Not Available Not Available ondansetron 4 mg disintegrat ing tablet DISSOLVE 1 TABLET IN MOUTH EVERY 8 HOURS NEEDED FOR NAUSEA AND VOMITING 11/25 completed Not Available Not Available Not Available fluoxetine 20 mg capsule Take 1 capsule every day by oral route. active Not Available Not Available No t Available fluticasone propionate 50 mcg/actuati on nasal spray,suspe nsion USE 1 SPRAY(S) IN EACH NOSTRIL TWICE DAILY 01/10 completed Not Available Not Available Not Available tobramycin 0.3 %-dexametha sone 0.1 % eye drops,suspe nsion SHAKE LIQUID AND INSTILL 1 DROP IN RIGHT EYE FOUR TIMES DAILY 11/25 completed Not Available Not Available Not Available nitrofurant oin monohydrate /macrocryst als 100 mg capsule TAKE 1 CAPSULE BY MOUTH EVERY 12 HOURS FOR 5 DAYS 11/25 completed Not Available Not Available Not Available multivitami n 12/20 completed Not Available Not Available Not Available Vitals Date Recorded Body height Body mass index (BMI) Body weight Heart rate Oxygen saturation Oxygen saturation in Arterial blood by Pulse oximetry Systolic blood pressure Diastolic blood pressure Provider Name and Address Organization Details Last Updated DateTime 3 158.12 cm 21.4 kg/m2 43978.9 g 90 /min 99 % 99 % 140 mm[Hg] 90 mm[Hg] Annie Pierce MA [facility] 3 16:38:21 Date Recorded Body height Body mass index (BMI) Body weight Heart rate Oxygen saturation Oxygen saturation in Arterial blood by Pulse oximetry Systolic blood pressure Diastolic blood pressure Provider Name and Address Organization Details Last Updated DateTime 4 158.12 cm 21 kg/m2 60511.7 1 g 91 /min 99 % 99 % 156 mm[Hg] 102 mm[Hg] Yoko Silvestre MA [facility] 4 12:33:59 Date Recorded Body height Body mass index (BMI) Body weight Heart rate Oxygen saturation Oxygen saturation in Arterial blood by Pulse oximetry Provider Name and Address Organization Details Last Updated DateTime 5 158.12 cm 19.6 kg/m2 84662.9 8 g 89 /min 99 % 99 % Yoko Silvestre MA [facility] 5 16:24:07 Date Recorded Systolic blood pressure Diastolic blood pressure Provider Name and Address Organization Details Last Updated DateTime 11/25/2024 130 mm[Hg] 88 mm[Hg] MALIA HOYOS Attn: Accounting,[address] [facility], [place], [address], [facility] 11/26/2024 11:02:11 Social History Question Answer Notes LastModified by Organizat ion Details LastModified Time Tobacco Smoking Status Never Smoker Ankita Adamson [facility], [place] - [facility] 08/17/2014 15:27:25 What Is Your Level Of Alcohol Consumption? None [email or web address] Information not available 05/17/2015 What Is Your Level Of Caffeine Consumption? None [email or web address] Information not available 05/17/2015 How Much Tobacco Do You Chew? None [email or web address] Information not available 05/17/2015 In The 14 Days Before Symptom Onset, Have You Had Close Contact With A Laboratory-confir med COVID-19 While That Case Was Ill? No Information not available 01/13/2021 In The 14 Days Before Symptom Onset, Have You Had Close Contact With A Person Who Is Under Investigation For COVID-19 While That Person Was Ill? No Information not available 01/13/2021 Have You Been To An Area Known To Be High Risk For COVID-19? No Information not available 01/13/2021 What Type Of Diet Are You Following? REGULAR [email or web address] Information not available 05/17/2015 Do You Or Have You Ever Used E-cigarettes Or Vape? Never Used Electronic Cigarettes Information not available 07/23/2019 Education Less Than 8th Grade [email or web address] Information not available 05/17/2015 Are There Any Guns Present In Your Home? No Information not available 05/17/2015 Hard Of Hearing Or Deaf In One Or Both Ears? No [email or web address] Information not available 05/17/2015 Legally Blind In One Or Both Eyes? No [email or web address] Information no t available 05/17/2015 Marital Status Informatio n not available 05/17/2015 What Was The Date Of Your Most Recent Tobacco Screening? 08/12/2023 [email or web address] Information not available 08/12/2023 Seat Belts Used Routinely Yes [email or web address] Information not available 05/17/2015 Smoke Alarm In Home Yes Information not available 05/17/2015 Do You Have Smoke And Carbon Monoxide Detectors In Your Home? Yes Information not available 01/13/2021 Do You Or Have You Ever Used Smokeless Tobacco? Never Used Smokeless Tobacco Information not available 07/23/2019 How Much Tobacco Do You Smoke? No [email or web address] Information not available 05/17/2015 General Stress Level Low [email or web address] Information not available 05/17/2015 Do You Use Any Illicit Or Recreational Drugs? Yes Information not available 01/13/2021 Has Tobacco Cessation Counseling Been Provided? Yes Information not available 01/13/2021 On What Date Was Tobacco Cessation Counseling Provided? 08/12/2023 [email or web address] Information not available 08/12/2023 Sex: Unknown Functional Status Question Answer Note LastModified by Organization D etails LastModified Time What is your exercise level? None [email or web address] Information not available 05/17/2015 Mental Status None recorded. Family History Relationship Description Onset Age of this Age Resolved Age Notes LastModified by Organization Details LastModified Time Mother Diabetes mellitus [email or web address] Not available 11/2015 14:33:09 Maternal Grandmother Diabetes mellitus [email or web address] Not available 2017 13:12:00 Maternal Aunt Malignant neoplasm of uterus 50 55 [email or web address] Not available 2018 15:56:17 Maternal Aunt Diabetes mellitus 50 [email or web address] Not available 2018 15:57:26 Maternal Aunt Diabetes mellitus [email or web address] Not available 2018 15:57:21 Maternal Uncle Diabetes mellitus 60 [email or web address] Not available 2018 15:56:52 Maternal Uncle Diabetes mellitus [email or web address] Not available 2018 15:56:47 Brother Hypertensive disorder 30 [email or web address] Not available 2018 15:58:13 Father Mood disorder [email or web address] Not available 2019 15:07:06 Daughter Mood disorder 15 [email or web address] Not available 2019 15:07:06 Medical History Condition Response Coronary Artery Disease N Other N High Blood Pressure N Atrial Fibrillation N Kidney or Bladder Problems N Thyroid Problems N GI Problems N Depression Y COPD N Blood Clots N Skin Problems N Anemia Y Heart Attack ([place]) N Anxiety Disorder Y Diabetes N Muscle, Joint, or Bone Problems N Seizures/Epilepsy N Acid Reflux (GERD) N Cancer N Stroke N Asthma N Allergies N High Cholesterol N Hepatitis N Liver Disease N Headaches Y Heart Failure N Osteoporosis N Gynecological History Statement/Question Response Date of Last Mammogram 09/28/2019 Flow Heavy Date of LMP 08/09/2024 STIs/STDs N HPV Vaccine N Duration of Flow (days) 4 Age at Menarche 18 Current Control Method Condoms Age at First Child 21 Frequency of Cycle (Q days) 30 Sexually Active? Y Menses Monthly Y Date of Last Pap Smear 05/09/2017 Sexual Problems? N LMP Definite Desired Control Method Condoms Obstetrics History GPAL:G 3 P 2 0 1 2 Type Value Multiple Births 0 Full Term 2 Induced 0 Spontaneous 1 Premature 0 Living 2 Ectopics 0 Total 3 Immunizations Vaccine Type Date Status Note Provider Nam e and Address Organization Details Recorded Time COVID-19, mRNA, LNP-S, PF, 30 mcg/0.3 mL dose 1 completed CAR[place]line[place] [facility] 11/25/2024 09:12:33 influenza, unspecified formulation 9 completed [place] [facility] 11/25/2024 09:12:33 influenza, whole 6 completed [place] [facility] 11/25/2024 09:12:33 Tdap 4 completed RONNA Mar[place] [facility] 05/17/2015 14:25:47 HPV9 9 completed Not Available [facility] 09/26/2019 02:40:25 HPV9 0 completed Alba Ses[place] [facility] 10/06/2019 15:43:07 HPV9 0 completed Alba Ses[place] [facility] 02/18/2020 17:02:53 Past Encounters Encounter ID Performer Location Encounter Start Date Encounter Closed Date Diagnosis/Indication Diagnosis SNOMED-CT Code Diagnosis ICD10 Code Diagnosis Note [id number] [facility] [address] [place] [address] 08/17/2014 14:49:07 08/23/2014 13:40:39 Gynecologic examination 76530235 the patient refuses Influenza vaccine. She had a normal pap with negative HPV 06/2012. Advised will need a repeat pap 06/2017 Condoms/fa mee planning obtain TDAP date given 2 months ago at [facility] [id number] Alba Sesay RN [facility] [address], [place] [address] 05/17/2015 14:13:45 05/20/2015 12:38:49 Mass of neck 938193156 [facility] for changes offered Thyroid scan but patient has no insurance [id number] Farida Blanton [facility] [address], [place] [address] 04/11/2016 14:17:24 04/15/2016 19:40:19 Gynecologic examination 38711533 Z01.411 She had a normal pap with negative HPV 06/2012. Advised will need a repeat pap 06/2017 Condoms/fa mee planning Pruritus of vagina 21056 003 L29.3 avoid fragrance products use a mild soap use same pad brand every month Irregular periods 700284 07 N92.6 Increased frequency of urination 450400820 R35.0 [id number] Farida Blanton [facility] [address] [place] [address] 05/09/2017 14:31:34 05/14/2017 13:18:18 Gynecologic examination 29323137 Z01.411 no pay source--[place] normal pap 06/2012 calcium rich food handout vitamin D daily SBE exercise diet low fat low cho low carb [id number] Santo Jenkins MD [facility] [address], [place] [address] 02/12/2018 09:52:20 02/18/2018 10:54:26 Dizziness 608401657 R42 orthostati c b/p-normal Vertigo 504520527 R42 Headache 77993476 R51 suspect Migraine headaches [id number] Jm Mosley Walter [facility] [address], [place] [address] 02/17/2018 09:45:24 02/21/2018 18:03:59 Blood glucose outside reference range 972744183 R73.09 [id number] Farida Blanton [facility] [address] [place] [address] 03/24/2018 12:31:03 04/02/2018 09:58:56 Chronic ethmoidal sinusitis 14477221 J32.2 [id number] [facility] [address] [place] [address] 07/23/2019 14:30:49 07/23/2019 16:52:37 Gynecologic examination 56750642 Z01.411 no pay source--[place] normal pap 05/09/2017 she is due for repeat pap in 3-5 years calcium rich food handout vitamin D daily SBE exercise diet low fat low cho low carb Postcoital bleeding 4888 0000 N93.0 Screening for malignant neoplasm of breast 649632597 Z12.39 send to [facility] Influenza vaccination declined 651156069 Z28.21 Fibrocysti c disease of breast 85334660 N60.19 avoid caffeinetr y primrose oil History of anemia 826168 002 Z86.2 [id number] [facility] [address] [place], [place] [address] 10/06/2019 14:25:00 10/07/2019 10:59:11 Active or passive immunization [id number] [facility] 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 for Gardasil [id number] [facility] [address] [place], [place] [address] 02/18/2020 15:47:10 02/19/2020 07:50:13 Active or passive immunization [id number] [facility] 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 for Gardasil [id number] [facility] [address] [place] [address] 05/30/2020 14:22:47 05/31/2020 07:11:38 Gynecologic examination [id number] Z01.411 no pay source--calero d normal pap 04/2017 calcium rich food handout vitamin D daily SBE exercise diet low fat low cho low carb Screening for malignant neoplasm of breast 978016780 Z12.39 send to [facility] Body mass index 20-24 - normal 286765906 Z68.21 [id number] [facility] [address] [place] [address] 01/10/2021 14:30:52 01/12/2021 18:31:26 Acute bronchitis 41698752 J20.9 [id number] MALIA HOYOS [facility] [address] [place] [address] 01/13/2021 08:35:16 01/13/2021 14:35:59 Hyperglycemia 42364501 R73.9 Patient had elevated BG a few years ago and states diabetes runs in her family. Depressive disorder 3548 9007 F32.9 started 5 years ago on nortryptyl ine 10mg and doing well on it. denies SI/HI. -Call center with questions/ concerns. Go to ER or call 911 for crisis (e.g., suicidal behaviors, suicidal ideations, intent or plan emerge). Additional ly, patient has suicide hotline #. 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 She gets a few days of spotting. [id number] Yoko Silvestre MA [facility] [address] [place] [address] 01/18/2021 09:48:47 01/18/2021 09:57:31 [id number] MALIA HOYOS [facility] [address] [place] [address] 04/10/2021 16:08:24 04/14/2021 08:09:21 Onychomycosis of toenails 875758417 B35.1 left foot nail changes on first 3rd and 5th toe. Adult heal th examination 651912157 Z00.00 - continue exercise- continue healthy eating- f/u prn or yearly [id number] MALIA HOYOS [facility] [address] [place] [address] 02/13/2022 15:11:21 02/14/2022 11:08:54 Depressive disorder 82974782 F32.9 started 6 years ago on nortryptyl ine 10mg and doing well on it. denies SI/HI. she wants to continue. discussed weaning off as she takes it every other day. she endorses some sadness and miriam start taking it daily. -Call center with questions/ concerns. Go to ER or call 911 for crisis (e.g., suicidal behaviors, suicidal ideations, intent or plan emerge). Additional ly, patient has suicide hotline #. - f/u 6 months - call with questions Irregular periods 598542 07 N92.6 Patient for one year has had spotting for one week and a couple days of heavier bleeding. She also complaints of being cold, fatigue, feeling sad and dry skin. r/o thyroid. mom dx with hypothyroi dism. denies hot flashes, weight loss/gain, change in appetite. lmp 02/09/2022 Screening mammography 24 312501 Z12.31 last mammogram normal 10/2020 [id number] MALIA HOYOS [facility] [address] [place] [address] 12/20/2022 09:19:17 12/20/2022 10:03:32 Adult health examination 136402260 Z00.00 - continue exercise- continue healthy eating- f/u prn or yearly Screening for malignant neoplasm of colon 980723037 Z12.11 Injury of head 40026256 S09.90XA fell backwards 11/2022 with brief LOCAnderso n ER did eval and had normal CT headpatien t says sx have mostly resovled and feeling wellf/u if worsening [id number] MALIA HOYOS [facility] [address] [place] [address] 03/27/2023 10:50:57 03/27/2023 12:26:24 Low back pain 922927145 M54.50 normal xray at [place] 02/2023 w/o ref flag sxpain improvingf /u in 3-4 weeks if not improving Fatigue 45982562 R53.83 wants labs today Prediabetes 186997543 R7 3.03 recehck Anemia 420899867 D64.9 low rbc in past study, repeat Depressive disorder 3548 9007 F32.9 started 6 years ago on nortryptyl ine 10mg and doing well on it. denies SI/HI. she wants to continue. -Call center with questions/ concerns. Go to ER or call 911 for crisis (e.g., suicidal behaviors, suicidal ideations, intent or plan emerge). Additional ly, patient has suicide hotline #. - f/u 6 months - call with questions [phone] MALIA HOYOS [facility] [address] [place] [address] 07/09/2023 16:19:55 07/09/2023 16:52:05 Screening for malignant neoplasm of colon 200198037 Z12.11 no colon ca hxno bloody stoolsdecl dora colonoscop y Iron defic iency anemia 93101805 D50.9 repeatperi ods have been milddenies blood in stool Hyperlipidemia 30457110 E78.5 repeat Prediabetes 065222704 R7 3.03 recheck Elevated blood-pressure reading without diagnosis of hypertension 562680343 R03.0 elevated todaycheck at homef/u for in-office check [id number] Yoko Silvestre MA [facility] [address] [place] [address] 07/19/2023 09:30:12 07/19/2023 10:09:53 [id number] MALIA HOYOS [facility] [address] [place] [address] 08/12/2023 16:34:05 08/13/2023 14:27:35 Chest pain 53790359 R07.9 new onset htn, left sided chest pain and palpitatio ns (with stress). She does jog and denies CP during these times. most likely not cardiac related but will send for cardiac exam as she is pre-diabet ic and now has high BP. denies cp today.PEX: RRR, no murmurs-st art aspirin- control BP- improve pre-diabet es Essential hypertension 82743981 I10 BP 140/90 and 154/92 on recheckShe was sent some losartan 25 mg but has not been taking itwill have her check at home this week and take losartanf/ u one monthER if develops karen pain Anxiety 97360995 F41.9 she does not want medication . states it is improving on its own.will monitor [id number] MALIA HOYOS [facility] [address] [place] [address] 12/30/2023 12:26:40 12/30/2023 13:04:01 Essential hypertension 47191436 I10 BP 156/102 and 154/92 on recheckShe was sent some losartan 25 mg but has not been taking itwill try lisinopril 10mgwill have her check at home this week and take losartan Dizziness 815783363 R42 new onset dizzinessB P elevated and not checking at homeshe stopped her BP medication Advised ER if CP, SOB, palpitatio n, worst headache [id number] MALIA HOYOS [facility] [address] [place] [address] 11/25/2024 16:15:27 11/26/2024 17:15:36 Screening mammography 52694375 Z12.31 last mammogram normal 10/2020 Adult [facility] th examination 428069111 Z00.01 - continue exercise- continue healthy eating- f/u prn or yearly- cologuard negative- mammogram due- pap scheduled [facility] screening 904001527 Z13.39 negative [id number] Daina Morris MA [facility] [address] [place] [address] 11/26/2024 11:43:15 11/26/2024 12:13:47 Adult health examination 253923932 Z00.01 - continue exercise- continue healthy eating- f/u prn or yearly- cologuard negative- mammogram due- pap scheduled Health Concerns Section Related Observation LastModified by Organization Detai ls LastModified Time None Recorded Concern Status LastModified by Organization Details LastModified Time None Recorded Advance Directives Directive None Recorded Payers Encounter Date Sequence Insurance Name Policy Number Policy Ashby Covered Member ID Ashby Member ID Guarantor Name 07/19/2023 1 [facility] (MEDICARE REPLACEMENT/A DVANTAGE - HMO) [id number] Hannah E Eloy [id number] Hannah Eloy 08/12/2023 1 [facility] (MEDICARE REPLACEMENT/A DVANTAGE - HMO) [id number] Hannah E Eloy [id number] Hannah Eloy 12/30/2023 1 [facility] (O) [id number] Hannah E Eloy [id number] Hannah Eloy 11/25/2024 1 [facility] (O) [id number] Hannah E Eloy [id number] Hannah Eloy 11/26/2024 1 [facility] [place] [id number] Hannah E Eloy [id number] Hannah Eloy Notes Date Note Type Note Provider Name and Address Organization Details Recorded Time 08/12/2023 text/html Hannah is here f or multiple complaints she feels more anxiety and palpitations over the last month. she has had left sided chest pain with anxiety, and I feel like I need to press on my chest to make it stop. She denies radiation. She also noticed high BP but states once she is not stressed it does come down. She brings two BP readings of times when she is relaxed and they are 125/90. She feels her stress is getting better as she had family staying with her for weeks. They will be leaving soon. MALIA HOYOS Attn: [address] [place], [address], [facility] 08/13/2023 08:26:39 12/30/2023 text/html Hannah is here f or dizziness since last week She started having some dizziness lasting minutes. Not checking BP. She feels it could be her ear. denies cp, sob, palpitations. MALIA HOYOS Attn: [address] [place], [address], [facility] 01/05/2024 18:04:56 11/25/2024 text/html here for wellnes s exam no complaints today MALIA HOYOS Attn: Accounting[address] [place], [address], [facility] 11/26/2024 12:19:12 OBGyn Episode Ob Episode Information Episode Created Date Number of Fetuses Patient Bloodtype Patient rh Status Prepregnancy Weight lbs Domestic Partner Domestic Partner Phone Father Name Housemaid Status 08/17/20 14 1 CLOSED Fetus Data First Name Last Name Admitted to NICU Weight (g) Sex Living Outcome Pediatric Complications Fetus ID Race Codes Race Delivery Type 2921.13 248 M Full Term 2903 Vaginal Michael Calculation Initial Michael Date Initial Exam Date Initial Exam Provider Initial Ultrasound Date Last Menstrual Period Date Ultra Sound Weeks Gestation 0 Eighteen To Twenty Week Michael Update Ultra Sound Date Fundal Height At Umbil Quickening Date Ultra Sound Latest Weeks Gestation Final Michael Confirmed By Final Michael Confirmed Date Final Michael Date Ultra Sound Latest Days Gestation 0 0 Menstrual History Last Menstrual Date Menses Monthly On Bcp Conception Prior Menses Frequency Hcg Plus Date Menarche Onset Age Delivery Information Delivery Date Delivery Type Labor Anesthesia Weeks Gestation Incision Type Labor Labor Length Hrs Delivered By Post Complications Tubal Sterilization Discharge Date Comments 9 None 40 false 448 born in [place] Discharge Information Feeding Method Contraceptive Method Maternal HG B and HCT Levels Ob Episode Information Episode Created Date Number of Fetuses Patient Bloodtype Patient rh Status Prepregnancy Weight lbs Domestic Partner Domestic Partner Phone Father Name Housemaid Status 08/17/20 14 1 CLOSED Fetus Data First Name Last Name Admitted to NICU Weight (g) Sex Living Outcome Pediatric Complications Fetus ID Race Codes Race Delivery Type 2921.13 248 F Full Term 2904 Vaginal Michael Calculation Initial Michael Date Initial Exam Date Initial Exam Provider Initial Ultrasound Date Last Menstrual Period Date Ultra Sound Weeks Gestation 0 Eighteen To Twenty Week Michael Update Ultra Sound Date Fundal Height At Umbil Quickening Date Ultra Sound Latest Weeks Gestation Final Michael Confirmed By Final Michael Confirmed Date Final Michael Date Ultra Sound Latest Days Gestation 0 0 Menstrual History Last Menstrual Date Menses Monthly On Bcp Conception Prior Menses Frequency Hcg Plus Date Menarche Onset Age Delivery Information Delivery Date Delivery Type Labor Anesthesia Weeks Gestation Incision Type Labor Labor Length Hrs Delivered By Post Complications Tubal Sterilization Discharge Date Comments 5 None 40 false 18 Discharge Information Feeding Method Contraceptive Method Maternal HG B and HCT Levels
--- OUTSIDE RECORDS SUMMARY | 2024-12-23 09:55 | XMS_ITS | Clinical Summary ---
Author Organization [facility] Address [address] [place] [address] Care Team Providers Care Cryptologic Technician Operator/Analyst Name Role Phone No, Physician Primary Care Provider [phone] Allergies No known active allergies Medications lisinopriL (PRINIVIL,ZESTR IL) 10 mg tablet Take 1 tablet (10 mg total) by mouth daily for 30 days 4 Active nortriptyline (PAMELOR) 10 mg capsule TAKE 1 CAPSULE BY MOUTH ONCE DAILY AT NIGHT . APPOINTMENT REQUIRED FOR FUTURE REFILLS 4 Active Active Problems Problem Noted Date Diagnosed Date Anatomical narrow angle, bilateral 01/09/2024 Assessment & Plan (09/18/2024 2:04 PM OVEN HEATER HELPER): - S/p laser peripheral iridotomy (LPI) OU (04/10/24) - Patent laser peripheral iridotomy (LPI) appeared patent OU at visit in 05/2024. She was continuing to have positive visual phenomenon in dim lightings despite laser peripheral iridotomy (LPI). - Had a few months where she didn't notice the FOL. However, her mother and then she began noticing the visual symptoms again. Also has eye pain during episodes of noticing FOL. - Used PFATs (refresh PM) during the time that she wasn't having symptoms, but they burned whenever she put them in so she discontinued. - DFE today WNL OU. Post-dilation IOP via applanation WNL - Unlikely that patient is having angle closure IOP spikes. - Patient is most concerned that there is pathology causing the phenomenon. Reassured her today of her normal eye exam. She would like to CTM without additional therapy. Plan - CTM - RTC in 6 months, sooner PRN Assessment & Plan (05/11/2024 9:35 PM CDT): [...] (2 - Td or Tdap) 06/15/2024 06/15/2014 Pneumococcal vaccine <65 Aged Out No longer eligible based on patient's age to complete this topic Insurance [facility] [place] [address] Care Teams Cryptologic Technician Operator/Analyst Relationship Specialty Start Date End Date No, Physician PCP - General 01/09/24
--- OUTSIDE RECORDS SUMMARY | 2024-12-23 09:55 | XMS_ITS | Referral Summary ---
Author Organization [facility] Address [address] [place] [address] Care Team Providers Care Washing Tub Operator Name Role Phone No, Physician Primary Care Provider [phone] Allergies No known active allergies Medications lisinopriL [...] 01/09/2024 Assessment & Plan (09/18/2024 2:04 PM CLIENT SERVER DEVELOPER): - S/p laser peripheral iridotomy (LPI) OU [...] Plan of Treatment Not on file Insurance [facility] Care Teams Washing Tub Operator Relationship Specialty Start Date End Date No, Physician PCP - General 01/09/24
== END 2024-12-23 09:13 | disposition home or self-care (01) ==
LOC: ANHIMG 09:15
PROVIDERS: PCP Physician Assistant; Visit Provider Physician Assistant
DX: Z12.31 Encounter for screening mammogram for malignant neoplasm of breast (principal); N63.20 Unspecified lump in the left breast, unspecified quadrant; N63.10 Unspecified lump in the right breast, unspecified quadrant
CPT/HCPCS: 77063; 77067

== ENCOUNTER 2025-02-04 07:04 | Outpatient (CLI) | payer OTHER, SELFPAY ==
--- NOTE | ~2025-02-04 | MMUS_ITS ---
EXAMINATION: MM diagnostic anthony LT w nicolas, US breast LT complete HISTORY: Follow-up left breast mass TECHNIQUE: Additional 3-D tomosynthesis images of the left breast were performed and synthetic 2-D im ages were generated. CAD analysis was submitted and interpreted. High resolution complete left breast ultrasound was performed. COMPARISON: Comparison to multiple prior studies sequentially, with oldest reviewed study dated 10/28. BREAST PARENCHYMAL COMPOSITION: Dense: The breasts are heterogeneously dense, which may obscure small masses FINDINGS: MAMMOGRAPHIC FINDINGS: There are clustered subareolar calcifications of the left breast which layer on MLO and spot MLO view s, consistent with benign milk of calcium. There are no suspicious masses or architectural distortion . ULTRASOUND: Complete US of all 4 quadrants of the left breast/s and retroareolar region was reviewed. At 3:00, 2 cm from the nipple there is an oval parallel oriented hypoechoic 7 mm mass without internal vasculari ty or posterior features. At 10:30, 3 cm from the nipple there is a cluster of small cysts, largest m easuring 6 mm. IMPRESSION: 1. Probable benign findings of the left breast. 2. Recommend 6 month follow-up diagnostic left mammogram and Limited left breast ultrasound. BI-RADS category 3, probably benign findings. Reviewed, dictated and finalized at location [facility]. IMPRESSION: 1. Probable benign findings of the left breast. 2. Recommend 6 month follow-up diagnostic left mammogram and Limited left breas t ultrasound. BI-RADS category 3, probably benign findings.
--- OUTSIDE RECORDS SUMMARY | 2025-02-04 11:10 | XMS_ITS | Data Portability ---
Author Organization [facility] ISACVioleta Mendoza Address [address] [place] [address] Care Team Providers Care Clerical Adviser Name Role Phone SUSAN CARRANZA Primary Care Provider Assessment No assessment recorded. Plan of Treatment Reminders Order Date Submit Date Provider Last Modified By Organization Details Last Modified Time Details Appointments ANY 30 2024 10:30A M MALIA HOYOS Not available Not available Not available Lab CMP, serum or plasma 2024 025 [facility], [address] [place] [address], [address], [place], [address], 11/27/2024 11:17:19 CBC w/ auto diff 2024 025 [facility], [address] [place] [address], [address], [place], [address], 11/27/2024 11:17:21 lipid panel, serum 2024 025 [facility], [address] [place] [address], [address], [place], [address], 11/27/2024 11:17:18 HbA1c (hemoglob in A1c), blood 2024 025 [facility], [address] [facility], [address], [place], [address], 11/27/2024 11:17:20 CBC w/ auto diff 2023 024 [facility], [address], [address], [place], [address], 12/31/2023 12:12:13 CMP, serum or plasma 2023 024 [facility], [address], [address], [place], [address], 12/31/2023 12:12:11 iron + total iron-bind ing capacity (TIBC), serum 2023 024 [facility], [address], [address], [place], [address], 12/31/2023 12:12:12 HbA1c (hemoglob in A1c), blood 2023 024 [facility], [address], [address], [place], [address], 12/31/2023 12:12:12 TSH + free T4, serum 2023 024 [facility], [address], [address], [place], [address], 12/31/2023 12:12:10 Referral cardiolog ist referral 2022 023 DOTTIE Rios DO, [address], [place], [address], 10/10/2023 10:04:21 Procedures None recorded. Surgeries None recorded. Imaging MAMMO, screening , bilateral [address] (Imaging), [address], [place], [address], 12/23/2024 07:52:30 Medication Orders lisinopri l 10 mg tablet 2023 025 [facility], [address] [facility], [place], [address], 12/02/2024 16:05:01 Patient TargetsNo targets recorded. 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 Referring Physician: Susan Carranza, Customer Operations Specialist, Encounter Date: 08/12/2023 Results Created Date Observation Date Name Description Value Unit Range Abnormal Flag Note LastModifiedBy Organization Detail LastModifiedTime 07/09/2007/20/2023 IRON AND TIBC iron bind.cap.(TI BC) 398 ug/dL 250-45 0 Not Available [facility] ([facility]) [address] [facility], [place], [address], 07/20/2023 08:25:43 07/09/20 23 07/20/2023 IRON AND TIBC UIBC 335 ug/dL 131-42 5 Not Available [facility] ([facility]) [address] [facility], [place], [address], 07/20/2023 08:25:43 07/09/20 23 07/20/2023 IRON AND TIBC iron 63 ug/dL 27-159 Not Available [facility] ([facility]) [address] [place], [address], 07/20/2023 08:25:43 07/09/20 23 07/20/2023 IRON AND TIBC iron saturation 16 % 15-55 Not Available [facility] ([facility]) [address] [facility], [place], [address], 07/20/2023 08:25:43 07/09/2007/20/2023 HEMOG LOBIN A1C hemoglobin A1C 6.0 % 4.8-5. 6 above high normal Predi abete s: 5.7 - 6.4 Diabe janice: >6.4 Glyce carolann contr ol for adult s with diabe janice: <7.0 Not Available [facility] ([facility]) [address] [place], [address], 07/20/2023 08:25:43 07/09/2007/20/2023 JENNYFER TIN ferritin 22 NG/mL 15-150 Not Available [facility] ([facility]) [address] [facility], [place], [address], 07/20/2023 08:25:44 07/29/2007/29/2023 COLOG UARD cologuard result [...] of 10,00 0 indiv [facility]ual [facility] risk for color ectal cance r who [...] asymp tomat ic indiv idual s at [facility] risk for color ectal cance r. Follo [...] 112:1 016-1 030. TEST DESCR IPTIO N: [place] site algor ithmi c corbin sis of [...] years or older , who are at [facility] for color ectal cance r (CRC) . Colog uard has been appro jerome for use by the [place] FDA. The perfo rmanc e of Colog uard was estab lishe d in a cross secti onal study of [facility] adult s aged 50-84 . Colog uard [...] study of 0 indiv idual s at [facility] risk for color ectal cance r who [...] at www.c chad davidsond.c om. Not Available [facility] (Cologuard Orders Only) [address], [place], [address], 08/08/2023 10:50:27 12/30/19 24 12/31/2023 TSH+F REE T4 TSH 3.370 uIU/m L 0.450- 4.500 Not Available [facility] ([facility]) [address] [facility] [place], [address], 12/31/2023 12:12:10 12/30/19 24 12/31/2023 TSH+F REE T4 T4,free(dire ct) 1.02 NG/dL 0.82-1 .77 Not Available [facility] ([facility]) [address] [place], [address], 12/31/2023 12:12:10 12/30/19 24 12/31/2023 COMP. METAB OLIC PANEL (14) glucose 115 mg/dL 70-99 above high normal Not Available [facility] ([facility]) [address] [facility], [place], [address], 12/31/2023 12:12:11 12/30/19 24 12/31/2023 COMP. METAB OLIC PANEL (14) BUN 14 mg/dL 6-24 Not Available [facility] ([facility]) [address] [place], [address], 12/31/2023 12:12:11 12/30/19 24 12/31/2023 COMP. METAB OLIC PANEL (14) creatinine 0.68 mg/dL 0.57-1 .00 Not Available [facility] ([facility]) [address] [place], [address], 12/31/2023 12:12:11 12/30/19 24 12/31/2023 COMP. METAB OLIC PANEL (14) eGFR 109 mL/mi n/1.7 3 >59 Not Available [facility] ([facility]) [address] [place], [address], 12/31/2023 12:12:11 12/30/19 24 12/31/2023 COMP. METAB OLIC PANEL (14) BUN/creatini ne ratio 21 9-23 Not Available [facility] ([facility]) [address] [facility], [place], [address], 12/31/2023 12:12:11 12/30/19 24 12/31/2023 COMP. METAB OLIC PANEL (14) sodium 142 mmol/ L 134-14 4 Not Available [facility] ([facility]) [address] [place], [address], 12/31/2023 12:12:11 12/30/19 24 12/31/2023 COMP. METAB OLIC PANEL (14) potassium 4.4 mmol/ L 3.5-5. 2 Not Available [facility] ([facility]) [address] [place], [address], 12/31/2023 12:12:11 12/30/19 24 12/31/2023 COMP. METAB OLIC PANEL (14) chloride 106 mmol/ L 96-106 Not Available [facility] ([facility]) [address] [place], [place], [address], 12/31/2023 12:12:11 12/30/19 24 12/31/2023 COMP. METAB OLIC PANEL (14) carbon dioxide, total 23 mmol/ L 20-29 Not Available [facility] ([facility]) [address] [place], [address], 12/31/2023 12:12:11 12/30/19 24 12/31/2023 COMP. METAB OLIC PANEL (14) calcium 9.5 mg/dL 8.7-10 .2 Not Available [facility] ([facility]) [address] [place], [address], 12/31/2023 12:12:11 12/30/19 24 12/31/2023 COMP. METAB OLIC PANEL (14) protein, total 7.2 g/dL 6.0-8. 5 Not Available [facility] ([facility] [address] [facility] [facility] [place], [address], 12/31/2023 12:12:11 12/30/19 24 12/31/2023 COMP. METAB OLIC PANEL (14) albumin 4.6 g/dL 3.9-4. 9 Not Available [facility] ([facility]) [address] [facility], [place], [address], 12/31/2023 12:12:11 12/30/19 24 12/31/2023 COMP. METAB OLIC PANEL (14) globulin, total 2.6 g/dL 1.5-4. 5 Not Available [facility] ([facility]) [address] [facility], [place], [address], 12/31/2023 12:12:11 12/30/19 24 12/31/2023 COMP. METAB OLIC PANEL (14) A/G ratio 1.8 1.2-2. 2 Not Available [facility] ([facility]) [address] [facility], [place], [address], 12/31/2023 12:12:11 12/30/19 24 12/31/2023 COMP. METAB OLIC PANEL (14) bilirubin, total 0.3 mg/dL 0.0-1. 2 Not Available [facility] ([facility]) [address] [facility], [place], [address], 12/31/2023 12:12:11 12/30/19 24 12/31/2023 COMP. METAB OLIC PANEL (14) alkaline phosphatase 84 IU/L 44-121 Not Available [facility] ([facility]) [address] [facility], [place], [address], 12/31/2023 12:12:11 12/30/19 24 12/31/2023 COMP. METAB OLIC PANEL (14) AST (SGOT) 27 IU/L 0-40 Not Available [facility] ([facility]) [address] [facility], [place], [address], 12/31/2023 12:12:11 12/30/19 24 12/31/2023 COMP. METAB OLIC PANEL (14) ALT (SGPT) 17 IU/L 0-32 Not Available [facility] ([facility]) [address] [facility], [place], [address], 12/31/2023 12:12:11 12/30/19 24 12/31/2023 IRON AND TIBC iron bind.cap.(TI BC) 397 ug/dL 250-45 0 Not Available [facility] ([facility]) [address] [facility], [place], [address], 12/31/2023 12:12:12 12/30/19 24 12/31/2023 IRON AND TIBC UIBC 328 ug/dL 131-42 5 Not Available [facility] ([facility]) [address] [facility], [place], [address], 12/31/2023 12:12:12 12/30/19 24 12/31/2023 IRON AND TIBC iron 69 ug/dL 27-159 Not Available [facility] ([facility]) [address] [facility], [place], [address], 12/31/2023 12:12:12 12/30/19 24 12/31/2023 IRON AND TIBC iron saturation 17 % 15-55 Not Available [facility] ([facility]) [address] [place], [address], 12/31/2023 12:12:12 12/30/19 24 12/31/2023 HEMOG LOBIN A1C hemoglobin A1C 5.9 % 4.8-5. 6 above high normal Predi abete s: 5.7 - 6.4 Diabe janice: >6.4 Glyce carolann contr ol for adult s with diabe janice: <7.0 Not Available [facility] ([facility]) [address] [place], [address], 12/31/2023 12:12:12 12/30/19 24 12/31/2023 CBC WITH DIFFE RENTI AL/PL ATELE T WBC 6.3 x10e3 /uL 3.4-10 .8 Not Available [facility] ([facility]) [address] [facility], [place], [address], 12/31/2023 12:12:13 12/30/19 24 12/31/2023 CBC WITH DIFFE RENTI AL/PL ATELE T RBC 4.52 x10e6 /uL 3.77-5 .28 Not Available [facility] ([facility]) [address] [facility], [place], [address], 12/31/2023 12:12:13 12/30/19 24 12/31/2023 CBC WITH DIFFE RENTI AL/PL ATELE T hemoglobin 13.3 g/dL 11.1-1 5.9 Not Available [facility] ([facility]) [address] [facility], [place], [address], 12/31/2023 12:12:13 12/30/19 24 12/31/2023 CBC WITH DIFFE RENTI AL/PL ATELE T hematocrit 40.9 % 34.0-4 6.6 Not Available [facility] ([facility]) [address] [place], [address], 12/31/2023 12:12:13 12/30/19 24 12/31/2023 CBC WITH DIFFE RENTI AL/PL ATELE T MCV 91 fL 79-97 Not Available [facility] ([facility]) [address] [place], [address], 12/31/2023 12:12:13 12/30/19 24 12/31/2023 CBC WITH DIFFE RENTI AL/PL ATELE T MCH 29.4 pg 26.6-3 3.0 Not Available [facility] ([facility]) [address] [place], [address], 12/31/2023 12:12:13 12/30/19 24 12/31/2023 CBC WITH DIFFE RENTI AL/PL ATELE T MCHC 32.5 g/dL 31.5-3 5.7 Not Available [facility] ([facility]) [address] [facility], [place], [address], 12/31/2023 12:12:13 12/30/19 24 12/31/2023 CBC WITH DIFFE RENTI AL/PL ATELE T RDW 13.9 % 11.7-1 5.4 Not Available [facility] ([facility]) [address] [facility], [place], [address], 12/31/2023 12:12:13 12/30/19 24 12/31/2023 CBC WITH DIFFE RENTI AL/PL ATELE T platelets 206 x10e3 /uL 150-45 0 Not Available [facility] ([facility]) [address] [facility], [place], [address], 12/31/2023 12:12:13 12/30/19 24 12/31/2023 CBC WITH DIFFE RENTI AL/PL ATELE T neutrophils 58 % notest ab. Not Available [facility] ([facility]) [address] [facility], [place], [address], 12/31/2023 12:12:13 12/30/19 24 12/31/2023 CBC WITH DIFFE RENTI AL/PL ATELE T lymphs 33 % notest ab. Not Available [facility] ([facility]) [address] [facility], [place], [address], 12/31/2023 12:12:13 12/30/19 24 12/31/2023 CBC WITH DIFFE RENTI AL/PL ATELE T monocytes 6 % notest ab. Not Available [facility] ([facility]) [address] [facility], [place], [address], 12/31/2023 12:12:13 12/30/19 24 12/31/2023 CBC WITH DIFFE RENTI AL/PL ATELE T eos 2 % notest ab. Not Available [facility] ([facility]) [address] [facility], [place], [address], 12/31/2023 12:12:13 12/30/19 24 12/31/2023 CBC WITH DIFFE RENTI AL/PL ATELE T basos 1 % notest ab. Not Available [facility] ([facility]) [address] [facility], [place], [address], 12/31/2023 12:12:13 12/30/19 24 12/31/2023 CBC WITH DIFFE RENTI AL/PL ATELE T neutrophils (absolute) 3.6 x10e3 /uL 1.4-7. 0 Not Available [facility] ([facility]) [address] [facility], [place], [address], 12/31/2023 12:12:13 12/30/19 24 12/31/2023 CBC WITH DIFFE RENTI AL/PL ATELE T lymphs (absolute) 2.1 x10e3 /uL 0.7-3. 1 Not Available [facility] ([facility]) [address] [facility], [place], [address], 12/31/2023 12:12:13 12/30/19 24 12/31/2023 CBC WITH DIFFE RENTI AL/PL ATELE T monocytes(ab solute) 0.4 x10e3 /uL 0.1-0. 9 Not Available [facility] ([facility]) [address] [facility], [place], [address], 12/31/2023 12:12:13 12/30/19 24 12/31/2023 CBC WITH DIFFE RENTI AL/PL ATELE T eos (absolute) 0.1 x10e3 /uL 0.0-0. 4 Not Available [facility] ([facility]) [address] [facility], [place], [address], 12/31/2023 12:12:13 12/30/19 24 12/31/2023 CBC WITH DIFFE RENTI AL/PL ATELE T baso (absolute) 0.1 x10e3 /uL 0.0-0. 2 Not Available [facility] ([facility]) [address] [facility], [place], [address], 12/31/2023 12:12:13 12/30/19 24 12/31/2023 CBC WITH DIFFE RENTI AL/PL ATELE T immature granulocytes 0 % notest ab. Not Available [facility] ([facility]) [address] [facility], [place], [address], 12/31/2023 12:12:13 12/30/19 24 12/31/2023 CBC WITH DIFFE RENTI AL/PL ATELE T immature grans (abs) 0.0 x10e3 /uL 0.0-0. 1 Not Available [facility] ([facility]) [address] [facility], [place], [address], 12/31/2023 12:12:13 09/11/19 25 09/12/2024 MICRO SCOPI C EXAMI NATIO N WBC >30 /hpf 0-5 abnormal Not Available [facility] ([facility]) [address] [facility], [place], [address], 09/12/2024 07:14:17 09/11/19 25 09/12/2024 MICRO SCOPI C EXAMI NATIO N RBC None seen /hpf 0-2 Not Available [facility] ([facility]) [address] [facility], [place], [address], 09/12/2024 07:14:17 09/11/19 25 09/12/2024 MICRO SCOPI C EXAMI NATIO N epithelial cells (non renal) 0-10 /hpf 0-10 Not Available [facility] ([facility]) [address] [facility], [place], [address], 09/12/2024 07:14:17 09/11/19 25 09/12/2024 MICRO SCOPI C EXAMI NATIO N casts None seen /lpf nonese en Not Available [facility] ([facility]) [address] [facility], [place], [address], 09/12/2024 07:14:17 09/11/1909/12/2024 MICRO SCOPI C EXAMI NATIO N bacteria Few nonese en/few Not Available [facility] ([facility]) [address] [facility], [place], [address], 09/12/2024 07:14:17 09/11/1909/12/2024 URINA LYSIS , COMPL ETE specific gravity <=1.00 5 1.005- 1.030 abnormal Not Available [facility] ([facility]) [address] [facility], [place], [address], 09/12/2024 07:14:18 09/11/1909/12/2024 URINA LYSIS , COMPL ETE pH 7.0 5.0-7. 5 Not Available [facility] ([facility]) [address] [facility], [place], [address], 09/12/2024 07:14:18 09/11/1909/12/2024 URINA LYSIS , COMPL ETE urine-color YELLOW yellow Not Available [facility] ([facility]) [address] [facility], [place], [address], 09/12/2024 07:14:18 09/11/1909/12/2024 URINA LYSIS , COMPL ETE appearance CLEAR clear Not Available [facility] ([facility]) [address] [facility], [place], [address], 09/12/2024 07:14:18 09/11/1909/12/2024 URINA LYSIS , COMPL ETE WBC esterase 3+ negati ve abnormal Not Available [facility] ([facility]) [address] [facility], [place], [address], 09/12/2024 07:14:18 09/11/1909/12/2024 URINA LYSIS , COMPL ETE protein NEGATI VE negati ve/tra ce Not Available [facility] ([facility]) [address] [place], [address], 09/12/2024 07:14:18 09/11/1909/12/2024 URINA LYSIS , COMPL ETE glucose NEGATI VE negati ve Not Available [facility] ([facility]) [address] [place], [address], 09/12/2024 07:14:18 09/11/19 25 09/12/2024 URINA LYSIS , COMPL ETE ketones NEGATI VE negati ve Not Available [facility] ([facility]) [address] [place], [address], 09/12/2024 07:14:18 09/11/19 25 09/12/2024 URINA LYSIS , COMPL ETE occult blood TRACE negati ve abnormal Not Available [facility] ([facility]) [address] [place], [address], 09/12/2024 07:14:18 09/11/1909/12/2024 URINA LYSIS , COMPL ETE bilirubin NEGATI VE negati ve Not Available [facility] ([facility]) [address] [place], [address], 09/12/2024 07:14:18 09/11/1909/12/2024 URINA LYSIS , COMPL ETE urobilinogen ,semi-qn 0.2 mg/dL 0.2-1. 0 Not Available [facility] ([facility]) [address] [place], [address], 09/12/2024 07:14:18 09/11/19 25 09/12/2024 URINA LYSIS , COMPL ETE nitrite, urine NEGATI VE negati ve Not Available [facility] ([facility]) [address] [place], [address], 09/12/2024 07:14:18 09/11/19 25 09/12/2024 URINA LYSIS , COMPL ETE microscopic examination SEE BELOW: Micro scopi c was indic ated and was perfo rmed. Not Available [facility] ([facility]) [address] [place], [address], 09/12/2024 07:14:18 11/27/19 25 11/27/2024 LIPID PANEL cholesterol, total 222 mg/dL 100-19 9 above high normal Not Available [facility] ([facility]) [address] [place], [address], 11/27/2024 11:17:18 11/27/19 25 11/27/2024 LIPID PANEL triglyceride s 80 mg/dL 0-149 Not Available [facility] ([facility]) [address] [place], [address], 11/27/2024 11:17:18 11/27/19 25 11/27/2024 LIPID PANEL HDL cholesterol 58 mg/dL >39 Not Available [facility] ([facility]) [address] [place], [address], 11/27/2024 11:17:18 11/27/19 25 11/27/2024 LIPID PANEL VLDL cholesterol diego 14 mg/dL 5-40 Not Available [facility] ([facility]) [address] [place], [address], 11/27/2024 11:17:18 11/27/19 25 11/27/2024 LIPID PANEL LDL chol calc ([facility]) 150 mg/dL 0-99 above high normal Not Available [facility] ([facility]) [address] [place], [address], 11/27/2024 11:17:18 11/27/19 25 11/27/2024 COMP. METAB OLIC PANEL (14) glucose 93 mg/dL 70-99 Not Available [facility] ([facility]) [address] [place], [address], 11/27/2024 11:17:19 11/27/19 25 11/27/2024 COMP. METAB OLIC PANEL (14) BUN 15 mg/dL 6-24 Not Available [facility] ([facility]) [address] [facility], [address], 11/27/2024 11:17:19 11/27/19 25 11/27/2024 COMP. METAB OLIC PANEL (14) creatinine 0.80 mg/dL 0.57-1 .00 Not Available [facility] ([facility]) [address] [facility], [address], 11/27/2024 11:17:19 11/27/19 25 11/27/2024 COMP. METAB OLIC PANEL (14) eGFR 91 mL/mi n/1.7 3 >59 Not Available [facility] ([facility]) [address] [facility], [address], 11/27/2024 11:17:19 11/27/19 25 11/27/2024 COMP. METAB OLIC PANEL (14) BUN/creatini ne ratio 19 9-23 Not Available [facility] ([facility]) [address] [facility], [address], 11/27/2024 11:17:19 11/27/19 25 11/27/2024 COMP. METAB OLIC PANEL (14) sodium 140 mmol/ L 134-14 4 Not Available [facility] ([facility]) [address] [facility], [address], 11/27/2024 11:17:19 11/27/19 25 11/27/2024 COMP. METAB OLIC PANEL (14) potassium 4.5 mmol/ L 3.5-5. 2 Not Available [facility] ([facility]) [address] [facility], [address], 11/27/2024 11:17:19 11/27/19 25 11/27/2024 COMP. METAB OLIC PANEL (14) chloride 104 mmol/ L 96-106 Not Available [facility] ([facility]) [address] [facility], [place], [address], 11/27/2024 11:17:19 11/27/19 25 11/27/2024 COMP. METAB OLIC PANEL (14) carbon dioxide, total 19 mmol/ L 20-29 below low normal Not Available [facility] ([facility]) [address] [facility], [place], [address], 11/27/2024 11:17:19 11/27/19 25 11/27/2024 COMP. METAB OLIC PANEL (14) calcium 9.4 mg/dL 8.7-10 .2 Not Available [facility] ([facility]) [address] [facility], [place], [address], 11/27/2024 11:17:19 11/27/19 25 11/27/2024 COMP. METAB OLIC PANEL (14) protein, total 6.9 g/dL 6.0-8. 5 Not Available [facility] ([facility]) [address] [place], [address], 11/27/2024 11:17:19 11/27/19 25 11/27/2024 COMP. METAB OLIC PANEL (14) albumin 4.6 g/dL 3.9-4. 9 Not Available [facility] ([facility]) [address] [place], [address], 11/27/2024 11:17:19 11/27/19 25 11/27/2024 COMP. METAB OLIC PANEL (14) globulin, total 2.3 g/dL 1.5-4. 5 Not Available [facility] ([facility]) [address] [place], [address], 11/27/2024 11:17:19 11/27/19 25 11/27/2024 COMP. METAB OLIC PANEL (14) bilirubin, total 0.5 mg/dL 0.0-1. 2 Not Available [facility] ([facility]) [address] [place], [address], 11/27/2024 11:17:19 11/27/19 25 11/27/2024 COMP. METAB OLIC PANEL (14) alkaline phosphatase 88 IU/L 44-121 Not Available [facility] ([facility]) [address] [place], [address], 11/27/2024 11:17:19 11/27/19 25 11/27/2024 COMP. METAB OLIC PANEL (14) AST (SGOT) 29 IU/L 0-40 Not Available [facility] ([facility]) [address] [place], [address], 11/27/2024 11:17:19 11/27/19 25 11/27/2024 COMP. METAB OLIC PANEL (14) ALT (SGPT) 18 IU/L 0-32 Not Available [facility] ([facility]) [address] [place], [address], 11/27/2024 11:17:19 11/27/19 25 11/27/2024 HEMOG LOBIN A1C hemoglobin A1C 5.8 % 4.8-5. 6 above high normal Predi abete s: 5.7 - 6.4 Diabe janice: >6.4 Glyce carolann contr ol for adult s with diabe janice: <7.0 Not Available [facility] ([facility]) [address] [place], [address], 11/27/2024 11:17:20 11/27/19 25 11/27/2024 CBC WITH DIFFE RENTI AL/PL ATELE T WBC 5.4 x10e3 /uL 3.4-10 .8 Not Available [facility] ([facility]) [address] [place], [address], 11/27/2024 11:17:21 11/27/19 25 11/27/2024 CBC WITH DIFFE RENTI AL/PL ATELE T RBC 4.04 x10e6 /uL 3.77-5 .28 Not Available [facility] ([facility]) [address] [place], [address], 11/27/2024 11:17:21 11/27/19 25 11/27/2024 CBC WITH DIFFE RENTI AL/PL ATELE T hemoglobin 12.3 g/dL 11.1-1 5.9 Not Available [facility] ([facility]) [address] [place], [address], 11/27/2024 11:17:21 11/27/19 25 11/27/2024 CBC WITH DIFFE RENTI AL/PL ATELE T hematocrit 36.4 % 34.0-4 6.6 Not Available [facility] ([facility]) [address] [place], [address], 11/27/2024 11:17:21 11/27/19 25 11/27/2024 CBC WITH DIFFE RENTI AL/PL ATELE T MCV 90 fL 79-97 Not Available [facility] ([facility]) [address] [place], [address], 11/27/2024 11:17:21 11/27/19 25 11/27/2024 CBC WITH DIFFE RENTI AL/PL ATELE T MCH 30.4 pg 26.6-3 3.0 Not Available [facility] ([facility]) [address] [place], [address], 11/27/2024 11:17:21 11/27/19 25 11/27/2024 CBC WITH DIFFE RENTI AL/PL ATELE T MCHC 33.8 g/dL 31.5-3 5.7 Not Available [facility] ([facility]) [address] [place], [address], 11/27/2024 11:17:21 11/27/19 25 11/27/2024 CBC WITH DIFFE RENTI AL/PL ATELE T RDW 14.1 % 11.7-1 5.4 Not Available [facility] ([facility]) [address] [facility], [place], [address], 11/27/2024 11:17:21 11/27/19 25 11/27/2024 CBC WITH DIFFE RENTI AL/PL ATELE T platelets 236 x10e3 /uL 150-45 0 Not Available [facility] ([facility]) [address] [facility], [place], [address], 11/27/2024 11:17:21 11/27/19 25 11/27/2024 CBC WITH DIFFE RENTI AL/PL ATELE T neutrophils 53 % notest ab. Not Available [facility] ([facility]) [address] [facility], [place], [address], 11/27/2024 11:17:21 11/27/19 25 11/27/2024 CBC WITH DIFFE RENTI AL/PL ATELE T lymphs 38 % notest ab. Not Available [facility] ([facility]) [address] [facility], [place], [address], 11/27/2024 11:17:21 11/27/19 25 11/27/2024 CBC WITH DIFFE RENTI AL/PL ATELE T monocytes 6 % notest ab. Not Available [facility] ([facility]) [address] [facility], [place], [address], 11/27/2024 11:17:21 11/27/19 25 11/27/2024 CBC WITH DIFFE RENTI AL/PL ATELE T eos 2 % notest ab. Not Available [facility] ([facility]) [address] [facility], [place], [address], 11/27/2024 11:17:21 11/27/19 25 11/27/2024 CBC WITH DIFFE RENTI AL/PL ATELE T basos 1 % notest ab. Not Available [facility] ([facility]) [address] [facility], [place], [address], 11/27/2024 11:17:21 11/27/19 25 11/27/2024 CBC WITH DIFFE RENTI AL/PL ATELE T neutrophils (absolute) 2.9 x10e3 /uL 1.4-7. 0 Not Available [facility] ([facility]) [address] [facility], [place], [address], 11/27/2024 11:17:21 11/27/19 25 11/27/2024 CBC WITH DIFFE RENTI AL/PL ATELE T lymphs (absolute) 2.1 x10e3 /uL 0.7-3. 1 Not Available [facility] ([facility]) [address] [place], [address], 11/27/2024 11:17:21 11/27/19 25 11/27/2024 CBC WITH DIFFE RENTI AL/PL ATELE T monocytes(ab solute) 0.4 x10e3 /uL 0.1-0. 9 Not Available [facility] ([facility]) [address] [place], [address], 11/27/2024 11:17:21 11/27/19 25 11/27/2024 CBC WITH DIFFE RENTI AL/PL ATELE T eos (absolute) 0.1 x10e3 /uL 0.0-0. 4 Not Available [facility] ([facility]) [address] [place], [address], 11/27/2024 11:17:21 11/27/19 25 11/27/2024 CBC WITH DIFFE RENTI AL/PL ATELE T baso (absolute) 0.0 x10e3 /uL 0.0-0. 2 Not Available [facility] ([facility]) [address] [place], [address], 11/27/2024 11:17:21 11/27/19 25 11/27/2024 CBC WITH DIFFE RENTI AL/PL ATELE T immature granulocytes 0 % notest ab. Not Available [facility] ([facility]) [address] [facility], [place], [address], 11/27/2024 11:17:21 11/27/19 25 11/27/2024 CBC WITH DIFFE RENTI AL/PL ATELE T immature grans (abs) 0.0 x10e3 /uL 0.0-0. 1 Not Available [facility] ([facility]) [address] [facility], [place], [address], 11/27/2024 11:17:21 11/04/19 24 11/04/2023 exerc ise stres s test No observ ation record ed. [address], [address], 11/13/2023 10:39:43 08/24/20 24 08/24/2024 US, ayana ladde r No observ ation record ed. [address], [address], 08/25/2024 15:36:53 08/24/20 24 08/24/2024 XR, abdom en No observ ation record ed. [address], [address], 08/25/2024 15:37:19 08/31/20 24 08/31/2024 CT, abdom en + pelvi s, w/ contr ast No observ ation record ed. [address], [address], 08/31/2024 13:47:22 12/24/19 25 12/23/2024 MAMMO , scree anabell, bilat eral No observ ation record ed. [address], [address], 01/04/2025 12:09:11 12/24/19 25 12/23/2024 MAMMO , scree anabell, bilat eral No observ ation record ed. [place] [id number] [facility] [address], [place], [address], 01/01/2025 11:21:37 12/25/1912/23/2024 MAMMO , scree anabell, bilat eral No observ ation record ed. [facility] (Mammography) [address], [place], [address], 01/01/2025 11:21:38 01/02/2012/23/2024 MAMMO , scree anabell, bilat eral No observ ation record ed. [address], [place], [address], 01/01/2025 11:21:39 01/02/2012/23/2024 MAMMO , scree anabell, bilat eral No observ ation record ed. [address] [facility], [place], [address], 01/01/2025 11:21:39 01/06/2012/23/2024 MAMMO , scree anabell, bilat eral No observ ation record ed. [facility] (Imaging) [address] [place] [address] [address] [facility], [place], [address], 01/07/2025 10:13:56 Result Notes None recorded. Problems Name Problem SNOMED Code Status Onset Date Resolution Date Notes Provider Name and Address Organization Details Recorded Time Fibrocystic disease of breast 53154441 Active 2018 AILEEN Ferreira Attn: Dee miguel,[address] [place], [address], [facility] 9 16:11:35 History of anemia 803292392 Active 2018 AILEEN Ferreira Attn: Dee miguel,[address], [place], [address], [place] - [facility] 9 16:12:01 Injury of head 06268633 Active 2022 MALIA HOYOS Attn: Dee miguel,[address] [facility], [place], [address], [place] [facility] 3 12:53:34 Low back pain 576393422 Active 2022 MALIA HOYOS Attn: Dee miguel,[address] [facility], [place], [address], [place] [facility] 3 14:09:03 Prediabetes 902567219 Active 2022 MALIA HOYOS Attn: Dee miguel,[address] [facility], [place], [address], [place] [facility] 3 08:41:23 Hyperlipide derick 60548970 Active 2022 MALIA HOYOS Attn: Dee miguel,[address] [facility], [place], [address], [place] [facility] 3 08:41:24 Iron deficiency anemia 11061107 Active 2022 MALIA HOYOS Attn: Dee miguel,[address] [facility], [place], [address], [place] [facility] 3 08:41:25 Essential hypertensio n 09886600 Active 2022 MALIA HOYOS Attn: Dee miguel,[address] [facility], [place], [address], [place] [facility] 3 08:24:43 Dizziness 135226048 Active 2023 MALIA HOYOS Attn: Dee miguel,[address] [facility], [place], [address], [place] [facility] 4 18:04:11 Anxiety 57792666 Completed 07/23/2019 Alba Sesay RN null, [place] - [facility] 9 14:41:03 Allergy Completed 07/23/2019 Alba Sesay RN null, [facility] 9 14:41:07 Mass of neck 986708343 Completed 07/23/2019 Alba Sesay RN null, [facility] 9 14:40:59 Pruritus of vagina 90958682 Completed 03/24/2018 Alba Sesay RN null, [facility] 8 12:36:44 Irregular periods 30519227 Completed 03/24/2018 DELMIS Sanches, [facility] 8 12:36:50 Increased frequency of urination 438963095 Completed 03/24/2018 DELMIS Sanches, [facility] 8 12:36:32 Problem Notes None recorded. Procedures Surgical History Date Name Laterality Status Provider Name and Address Organization Details Recorded Time 08/09/20 24 Removal of gallbladder completed Yoko Silvestre MA [facility] 11/25/2024 16:24:51 09/28/19 20 Date of Last Mammogram completed Alba Sesay RN [facility] 10/06/2019 14:44:01 05/09/20 17 Date of Last Pap Smear completed Karina Mathews [facility] 07/23/2019 14:27:35 Imaging Results None recorded. Procedure Notes None recorded. Medical Equipment None [...] Not Available Not Available Vitals Date Recorded Systolic blood pressure Diastolic blood pressure Provider Name and Address Organization Details Last Updated DateTime 11/25/2024 130 mm[Hg] 88 mm[Hg] MALIA HOYOS Attn: Accounting,[address] [place], [address], [place] [facility] 11/26/2024 11:02:11 Date Recorded Body height Body mass index (BMI) Body weight Heart rate Oxygen saturation Oxygen saturation in Arterial blood by Pulse oximetry Provider Name and Address Organization Details Last Updated DateTime 158.12 cm 19.6 kg/m2 45991.9 8 g 89 /min 99 % 99 % Yoko Silvestre [place] - [facility] 5 16:24:07 Date Recorded Body height Body mass index (BMI) Body weight Heart rate Oxygen saturation Oxygen saturation in Arterial blood by Pulse oximetry Systolic blood pressure Diastolic blood pressure Provider Name and Address Organization Details Last Updated DateTime 4 158.12 cm 21 kg/m2 39462.7 1 g 91 /min 99 % 99 % 156 mm[Hg] 102 mm[Hg] Yoko Silvestre MA [facility] 4 12:33:59 Date Recorded Body height Body mass index (BMI) Body weight Heart rate Oxygen saturation Oxygen saturation in Arterial blood by Pulse oximetry Systolic blood pressure Diastolic blood pressure Provider Name and Address Organization Details Last Updated DateTime 3 158.12 cm 21.4 kg/m2 35408.9 g 90 /min 99 % 99 % 140 mm[Hg] 90 mm[Hg] Annie Pierce MA [facility] 3 16:38:21 Social History Question Answer Notes LastModified by Organizat ion Details LastModified Time Tobacco Smoking Status Never Smoker Susan baptiste, [facility] 08/17/2014 15:27:25 What Is Your Level Of Caffeine Consumption? None [email or web address] Information not available 05/17/2015 How Much Tobacco Do You Chew? None [email or web address] Information not available 05/17/2015 In The 14 Days Before Symptom Onset, Have You Had Close Contact With A Laboratory-confirm ed COVID-19 While That Case Was Ill? No Information n ot available 01/13/2021 In The 14 Days Before Symptom Onset, Have You Had Close Contact With A Person Who Is Under Investigation For COVID-19 While That Person Was Ill? No Information not available 01/13/2021 Have You Been To An Area Known To Be High Risk For COVID-19? No Information not available 01/13/2021 What Type Of Diet Are You Following? REGULAR [email or web address] Information n ot available 05/17/2015 Education Less Than 8th Grade [email or web address] Information not available 05/17/2015 Are There Any Guns Present In Your Home? No [email or web address] Information not available 05/17/2015 Hard Of Hearing Or Deaf In One Or Both Ears? No [email or web address] Information not available 05/17/2015 Legally Blind In One Or Both Eyes? No [email or web address] Information no t available 05/17/2015 Marital Status [email or web address] Informatio n not available 05/17/2015 What Was The Date Of Your Most Recent Tobacco Screening? 08/12/2023 [email or web address] Information not available 08/12/2023 Seat Belts Used Routinely Yes [email or web address] Information not available 05/17/2015 Smoke Alarm In Home Yes Information not available 05/17/2015 Do You Have Smoke And Carbon Monoxide Detectors In Your Home? Yes Information not available 01/13/2021 How Much Tobacco Do You Smoke? No [email or web address] Information not available 05/17/2015 General Stress Level Low Information not available 05/17/2015 Has Tobacco Cessation Counseling Been Provided? Yes Information not available 01/13/2021 On What Date Was Tobacco Cessation Counseling Provided? 08/12/2023 [email or web address] Information not available 08/12/2023 Sex: Unknown Functional Status Question Answer Note LastModified by Organizat ion Details LastModified Time Do you use any illicit or recreational drugs? Yes Information not available 01/13/2021 What is your level of alcohol consumption? None [email or web address] Information not available 05/17/2015 Do you or have you ever used smokeless tobacco? Never used smokeless tobacco Information not available 07/23/2019 Do you or have you ever used e-cigarettes or vape? Never used electronic cigarettes Information not available 07/23/2019 What is your exercise level? None [email or web address] Information not available 05/17/2015 Mental Status None [...] Skin Problems N Anemia Y Heart Attack (MT) N Anxiety Disorder Y Diabetes N Muscle, [...] [facility] 11/25/2024 09:12:33 Tdap 4 completed RONNA Mar[place], [place] [facility] 05/17/2015 14:25:47 HPV9 9 completed Not Available [facility] 09/26/2019 02:40:25 HPV9 0 completed Alba Sesay RN null, [facility] 10/06/2019 15:43:07 HPV9 0 completed Alba Sesay RN [facility], [facility] 02/18/2020 17:02:53 Past Encounters Encounter ID Performer Location Encounter Start Date Encounter Closed Date Diagnosis/Indication Diagnosis SNOMED-CT Code Diagnosis ICD10 Code Diagnosis Note [id number] Santo Jenkins MD [facility] [address], [place] [address] 08/17/2014 14:49:07 08/23/2014 13:40:39 Gynecologic examination 36988130 the patient refuses Influenza vaccine. She had a normal pap with negative HPV 06/2012. Advised will need a repeat pap 06/2017 Condoms/fa mee planning obtain TDAP date given 2 months ago at [facility] [id number] Farida Blanton [facility] [address] [address] 05/17/2015 14:13:45 05/20/2015 12:38:49 Mass of neck 513636203 Reassuran e Monitor for changes offered Thyroid scan but patient has no insurance [id number] Santo Jenkins MD [facility] [address], [place] [address] 04/11/2016 14:17:24 04/15/2016 19:40:19 Gynecologic examination 53382705 Z01.411 She had a normal pap with negative HPV 06/2012. Advised will need a repeat pap 06/2017 Condoms/fa mee planning Pruritus of vagina 35525 003 L29.3 avoid fragrance products use a mild soap use same pad brand every month Irregular periods 548111 07 N92.6 Increased frequency of urination 151678447 R35.0 [id number] Santo Jenkins MD [facility] [address], [place] [address] 05/09/2017 14:31:34 05/14/2017 13:18:18 Gynecologic examination 32909734 Z01.411 no pay source--[place] normal pap 06/2012 calcium rich food handout vitamin D daily SBE exercise diet low fat low cho low carb [id number] Santo Jenkins MD [facility] [address] [place] [address] 02/12/2018 09:52:20 02/18/2018 10:54:26 Dizziness 086825255 R42 orthostati c b/p-normal Vertigo 801383640 R42 Headache 50786707 R51 suspect Migraine headaches [id number] Chiki Li MD [facility] [address] [place] [address] 02/17/2018 09:45:24 02/21/2018 18:03:59 Blood glucose outside reference range 017383523 R73.09 [id number] Santo Jenkins MD [facility] [address] [place] [address] 03/24/2018 12:31:03 04/02/2018 09:58:56 Chronic ethmoidal sinusitis 64568938 J32.2 [id number] Chiki Li MD [facility] [address] [place] [address] 07/23/2019 14:30:49 07/23/2019 16:52:37 Gynecologic examination 39286701 Z01.411 no pay source--[place] normal pap 05/09/2017 she is due for repeat pap in 3-5 years calcium rich food handout vitamin D daily SBE exercise diet low fat low cho low carb Postcoital bleeding 4888 0000 N93.0 Screening for malignant neoplasm of breast 075097942 Z12.39 send to [facility] Influenza vaccination declined 879971600 Z28.21 Fibrocysti c disease of breast 72220245 N60.19 avoid caffeinetr y primrose oil History of anemia 393633 002 Z86.2 [id number] Santo Jenkins MD [facility] [address] [place] [address] 10/06/2019 14:25:00 10/07/2019 10:59:11 Active or passive immunization 325320687 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 [id number] Santo Jenkins MD [facility] [address] [place] [address] 02/18/2020 15:47:10 02/19/2020 07:50:13 Active or passive immunization 427726078 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 [id number] Chiki Li MD [facility] [address] [place] [address] 05/30/2020 14:22:47 05/31/2020 07:11:38 Gynecologic examination 42463959 Z01.411 no pay source--[place] normal pap 04/2017 calcium rich food handout vitamin D daily SBE exercise diet low fat low cho low carb Screening for malignant neoplasm of breast 285455112 Z12.39 send to [facility] Body mass index 20-24 - normal 885313264 Z68.21 [id number] Santo Jenkins MD [facility] [address] [place] [address] 01/10/2021 14:30:52 01/12/2021 18:31:26 Acute bronchitis 55942631 J20.9 [id number] MALIA HOYOS [facility] [address] [place] [address] 01/13/2021 08:35:16 01/13/2021 14:35:59 Hyperglycemia 20549573 R73.9 Patient had elevated BG a few [...] - call with questions Cholesterol screening 27 3357893 Z13.220 patient due for cholestero l screening Irregular periods 620565 07 N92.6 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 She gets a few days of spotting. [id number] MALIA HOYOS [facility] [address] [place] [address] 01/18/2021 09:48:47 01/18/2021 09:57:31 [id number] MALIA HOYOS [facility] [address] [place] [address] 04/10/2021 16:08:24 04/14/2021 08:09:21 Onychomycosis of toenails 664483902 B35.1 left foot nail changes on first 3rd and 5th toe. Adult heal th examination 033764971 Z00.00 - continue exercise- continue healthy eating- f/u prn or yearly [id number] MALIA HOYOS [facility] [address] [place] [address] 02/13/2022 15:11:21 02/14/2022 11:08:54 Depressive disorder 20712415 F32.9 started 6 years ago on nortryptyl [...] months - call with questions Irregular periods 290516 07 N92.6 Patient for one year has had spotting for one week and a couple days of heavier bleeding. She also complaints of being cold, fatigue, feeling sad and dry skin. r/o thyroid. mom dx with hypothyroi dism. denies hot flashes, weight loss/gain, change in appetite. lmp 02/09/2022 Screening mammography 24 856077 Z12.31 last mammogram normal 10/2020 [id number] MALIA HOYOS [facility] [address] [place] [address] 12/20/2022 09:19:17 12/20/2022 10:03:32 Adult health examination 796654009 Z00.00 - continue exercise- continue healthy eating- f/u prn or yearly Screening for malignant neoplasm of colon 491765848 Z12.11 Injury of head 60648106 S09.90XA fell backwards 11/2022 with brief LOCAnderso n ER did eval and had normal CT headpatien t says sx have mostly resovled and feeling wellf/u if worsening [id number] MALIA HOYOS [facility] [place] [address] [place] [address] 03/27/2023 10:50:57 03/27/2023 12:26:24 Low back pain 099196714 M54.50 normal xray at [facility] 02/2023 w/o ref flag sxpain improvingf /u in 3-4 weeks if not improving Fatigue 00333984 R53.83 wants labs today Prediabetes 362844197 R7 3.03 recehck Anemia 060216088 D64.9 low rbc in past study, repeat [...] f/u 6 months - call with questions [id number] MALIA HOYOS [facility] [address] [place] [address] 07/09/2023 16:19:55 07/09/2023 16:52:05 Screening for malignant neoplasm of colon 247329471 Z12.11 no colon ca hxno bloody stoolsdecl dora colonoscop y Iron defic iency anemia 56844606 D50.9 repeatperi ods have been milddenies blood in stool Hyperlipidemia 93185083 E78.5 repeat Prediabetes 350130434 R7 3.03 recheck Elevated blood-pressure reading without diagnosis of hypertension 827722853 R03.0 elevated todaycheck at homef/u for in-office check [id number] MALIA HOYOS [facility] [address] [place] [address] 07/19/2023 09:30:12 07/19/2023 10:09:53 [id number] MALIA HOYOS [facility] [address] [place] [address] 08/12/2023 16:34:05 08/13/2023 14:27:35 Chest pain 21240564 R07.9 new onset htn, left sided chest pain and palpitatio ns (with stress). She does jog and denies CP during these times. most likely not cardiac related but will send for cardiac exam as she is pre-diabet ic and now has high BP. denies cp today.PEX: RRR, no murmurs-st art aspirin- control BP- improve pre-diabet es Essential hypertension 08183994 I10 BP 140/90 and 154/92 on recheckShe was sent some losartan 25 mg but has not been taking itwill have her check at home this week and take losartanf/ u one monthER if develops karen pain Anxiety 32644193 F41.9 she does not want medication . states it is improving on its own.will monitor [id number] MALIA HOYOS [facility] [address] [place] [address] 12/30/2023 12:26:40 12/30/2023 13:04:01 Essential hypertension 57074811 I10 BP 156/102 and 154/92 on recheckShe was sent some losartan 25 mg but has not been taking itwill try lisinopril 10mgwill have her check at home this week and take losartan Dizziness 815276605 R42 new onset dizzinessB P elevated and not checking at homeshe stopped her BP medication Advised ER if CP, SOB, palpitatio n, worst headache [id number] Donta Baptiste MD [facility] [address] [place] [address] 11/25/2024 16:15:27 11/26/2024 17:15:36 Screening mammography 41745973 Z12.31 last mammogram normal 10/2020 Adult heal th examination 975490868 Z00.01 - continue exercise- continue healthy eating- f/u prn or yearly- cologuard negative- mammogram due- pap scheduled [facility] screening 737824062 Z13.39 negative [id number] Donta Baptiste MD [facility] [address] [place] [address] 11/26/2024 11:43:15 11/26/2024 12:13:47 Adult health examination 455975708 Z00.01 - continue exercise- continue healthy eating- [...] Ashby Member ID Guarantor Name 07/19/2023 1 [facility] (MEDICARE REPLACEMENT/A DVANTAGE - HMO) [id number] Hannah E Eloy [id number] Hannah Eloy 08/12/2023 1 [facility] (MEDICARE REPLACEMENT/A DVANTAGE - HMO) [id number] Hannah E Eloy [id number] Hannah Eloy 12/30/2023 1 [facility] (O) [id number] Hannah E Eloy [id number] Hannah Eloy 11/25/2024 1 [facility] ([facility]) [id number] Hannah E Eloy [id number] Hannah Eloy 11/26/2024 1 [facility] ([facility]) [id number] Hannah E Eloy [id number] Hannah Eloy Notes Date Note Type Note [...] leaving soon. MALIA HOYOS Attn: Accounting,[address] [place], [address], [place] [facility] 08/13/2023 08:26:39 12/30/2023 text/html Hannah is here f or dizziness since last week She started having some dizziness lasting minutes. Not checking BP. She feels it could be her ear. denies cp, sob, palpitations. MALIA HOYOS Attn: Accounting[address] [facility], [place], [address], [place] [facility] 01/05/2024 18:04:56 11/25/2024 text/html here for wellnes s exam no complaints today MALIA HOYOS Attn: Accounting[address] [facility], [place], [address], [facility] 11/26/2024 12:19:12 OBGyn Episode Ob Episode Information Episode Created Date Number of Fetuses Patient Bloodtype Patient rh Status Prepregnancy Weight lbs Domestic Partner Domestic Partner Phone Father Name Metal Tile Lather Status 08/17/20 14 1 CLOSED Fetus Data [...] Date Ultra Sound Latest Weeks Gestation Final Imchael Confirmed By Final Michael Confirmed Date Final [...] 9 None 40 false 448 born in [place] Discharge Information Feeding Method Contraceptive Method Maternal HG B and HCT Levels Ob Episode Information Episode Created Date Number of Fetuses Patient Bloodtype Patient rh Status Prepregnancy Weight lbs Domestic Partner Domestic Partner Phone Father Name Metal Tile Lather Status 08/17/20 14 1 CLOSED Fetus Data [...]
== END 2025-02-04 07:05 ==
LOC: ANHIMG 03-08 07:04
PROVIDERS: PCP Physician Assistant; Visit Provider Physician Assistant
DX: N63.10 Unspecified lump in the right breast, unspecified quadrant (principal); N63.20 Unspecified lump in the left breast, unspecified quadrant; R92.8 Other abnormal and inconclusive findings on diagnostic imaging of breast
CPT/HCPCS: 76641; 77061; 77065; G0279

== ENCOUNTER 2025-03-02 20:23 | Emergency (ER) | payer OTHER, SELFPAY ==
[2025-03-02 20:26] VITALS: BP 167/98; PULSE 75; RESP 16; TEMP 36.4; O2SAT 100
[2025-03-02 20:35] VITALS: O2SAT 99
[2025-03-02 20:42] VITALS: BP 151/96; PULSE 76; RESP 20; O2SAT 99
--- NOTE | 2025-03-02 20:46 | ED.SOB ---
HPI - SOB/Dyspnea General Chief Complaint: Shortness of Breath/Dyspnea Stated Complaint: throat swelling from lisinopril Time Seen by Provider: 03/02/25 20:32 History of Present Illness HPI Narrative: Pt has been taking lisinopril for her BP for about a month. Pt says that she didn't feel right within a few days but did not have any specific issues until about a week ago when she started having trouble swallowing and feeling like food and water were getting stuck and she had intermittnet SOB. Pt took benadryl and it seemed to help but the symptoms kept recurring. Pt is able to swallow fuids and nothing has gotten stuck it just feels like it is going to get stuck. Related Data Home Medications ?Medication ?Instructions ?Recorded ?Confirmed ?Last Taken ?Type nortriptyline 10 mg capsule 10 mg PO DAILY 04/26/22 12/04/24 08/30/24 History Allergies Allergy/AdvReac Type Severity Reaction Status Date / Time No Known Allergies Allergy Unknown Unknown Verified 12/04/24 09:15 Review of Systems Review of Systems: All systems reviewed & are unremarkable except as noted in HPI and below PMFSH Past Medical History Medical History Anxiety Hypertension Dyslipidemia Depression Surgical History Surgical History Hx laparoscopic cholecystectomy 09/01/[address] Wayne No significant past surgical history Family History Family History Father Alive and well Mother Diabetes mellitus Social History Social History Smoking status: Never smoker Tobacco type: cigarettes Second hand tobacco smoke exposure: No Alcohol intake: never Substance use: never Substance use type: does not use Do You Feel Safe in your Home?: Yes Lack of Transportation: No Lack of Food: Never True Current Housing: I Have Housing Concerned About Future Housing: No Difficulty Paying Gas/Electric Bills: No Difficulty Paying for Meds: No Currently Unemployed: No Education: Decline to Answer Difficulty w/ Childcare or Family Care: No Living arrangements: with family Occupation/Education: occupation Gender identity (if verbalized by the patient): Female Sexual Orientation (if Verbalized by the Patient): Straight or Heterosexual Spiritual care concerns: No Exam Const: General: healthy appearing and no acute distress Nutritional Appearance: well nourished Orientation/consciousness: patient oriented x3 Limitations: no limitations HENMT: Head: normal to inspection Mouth: Yes Normal oral and palatal mucosa present Throat: posterior oropharynx normal Neck: Neck: normal visual inspection Chest: Chest palpation & inspection: normal inspection of the chest Resp: Effort & Inspection: normal respiratory effort Auscultation: clear to auscultation bilaterally Cardio: Rate: regular rate Rhythm: regular rhythm GI: GI Palp: Yes Soft to palpation and Yes Tenderness to palpation present (GI) Auscultation: normal bowel sounds Skin: General skin exam: normal color Rashes: no rashes Wounds: no wounds Neuro: General: patient oriented x3, moves all extremities, no meningeal signs and no focal motor deficits Cranial nerves: Yes Nystagmus not present Speech: normal speech Extrem: General: normal to inspection and no clubbing, cyanosis or edema Psych: Mental Status: mental status grossly normal Affect: normal affect Attitude: cooperative Course Vital Signs Vital signs: Vital Signs Temperature 97.5 F L 03/02/25 20:26 Pulse Rate 75 03/02/25 20:26 Respiratory Rate 16 03/02/25 20:26 Blood Pressure 167/98 H 03/02/25 20:26 Pulse Oximetry 100 03/02/25 20:26 Oxygen Delivery Room Air 03/02/25 20:26 Temperature 97.5 F L 03/02/25 20:26 Pulse Rate 76 03/02/25 20:42 Respiratory Rate 20 03/02/25 20:42 Blood Pressure 151/96 H 03/02/25 20:42 Pulse Oximetry 99 03/02/25 20:42 Oxygen Delivery Room Air 03/02/25 20:35 MDM - SOB/Dyspnea MDM Narrative Medical decision making narrative: Pt has been taking lisinopril for a month and feels like she has intermittent SOB and throat swelling that is improved by benadryl. Pt feels like she can't swallow water or food but does. stopped taking lisinopril 3 days ago. Pt is not in any respiratory distress and is tolerating fluids. will prescribe hctz and a few days of prednisone. will give GI number in case this persists as it may be a stricture. Discharge Plan Discharge Clinical Impression: Allergic reaction Patient Disposition: Home Condition: Stable Instructions: Antibiotic Form, Esophageal Stricture (ED), Angioedema (ED) Additional Instructions: stop lisinopril Patient Language: [place] Prescriptions: New hydrochlorothiazide 25 mg tablet 25 mg PO DAILY Qty: 30 0RF prednisone 10 mg tablet See Taper PO DAILY 15 Days Qty: 45 0RF Taper: Prednisone Taper from 50 mg;15 days 50 mg DAILY for 3 Days and 0 Hour 40 mg DAILY for 3 Days and 0 Hour 30 mg DAILY for 3 Days and 0 Hour 20 mg DAILY for 3 Days and 0 Hour 10 mg DAILY for 3 Days and 0 Hour hydrochlorothiazide 25 mg tablet 25 mg PO DAILY Qty: 30 0RF prednisone 10 mg tablet See Taper PO DAILY 15 Days Qty: 45 0RF Taper: Prednisone Taper from 50 mg;15 days 50 mg DAILY for 3 Days and 0 Hour 40 mg DAILY for 3 Days and 0 Hour 30 mg DAILY for 3 Days and 0 Hour 20 mg DAILY for 3 Days and 0 Hour 10 mg DAILY for 3 Days and 0 Hour prednisone 10 mg tablet See Taper PO DAILY 15 Days Qty: 45 0RF Taper: Prednisone Taper from 50 mg;15 days 50 mg DAILY for 3 Days and 0 Hour 40 mg DAILY for 3 Days and 0 Hour 30 mg DAILY for 3 Days and 0 Hour 20 mg DAILY for 3 Days and 0 Hour 10 mg DAILY for 3 Days and 0 Hour No Action nortriptyline 10 mg capsule 10 mg PO DAILY Follow-up/Referrals: Shayna,MALIA Wetzel [Primary Care Provider] - Faustino Salazar MD [Physician] -
[2025-03-02 21:44] VITALS: BP 129/79; PULSE 71; RESP 20; O2SAT 100
== END 2025-03-02 21:45 | disposition home or self-care (01) ==
LOC: ANHED 21:18
PROVIDERS: Emergency Provider Emergency Medicine; PCP Physician Assistant
DX: R13.10 Dysphagia, unspecified (principal); T46.4X5A Adverse effect of angiotensin-converting-enzyme inhibitors, initial encounter; I10 Essential (primary) hypertension; E78.5 Hyperlipidemia, unspecified; F41.9 Anxiety disorder, unspecified; F32.A Depression, unspecified; Z90.49 Acquired absence of other specified parts of digestive tract
CPT/HCPCS: 99281